=== PATIENT | female | born 1975 | race Caucasian/White ===

== ENCOUNTER 2019-01-20 14:56 | Outpatient (CLI) | payer MEDICAID, SELFPAY ==
[2019-01-20 15:12] LABS: Abs Immature Grans 0.01 k/cumm (0.0-0.09); Absolute Basophil Count 0.03 k/cumm (0.0-0.2); Absolute Eosinophil Count 0.19 k/cumm (0.0-0.7); Absolute Lymphocyte Count 1.71 k/cumm (1.2-3.4); Absolute Monocyte Count 0.41 k/cumm (0.11-0.7); Basophils % 0.4; Eosinophils % 2.8; HCT 38.9 % (36.0-46.0); HGB 12.9 g/dL (12.0-15.5); Immature Grans % 0.1; Mean Corp. HGB Concentration 33.2 g/dL (32.0-36.0); Mean Corpuscular Hemoglobin 26.9 pg (27.0-33.0); Mean Platelet Volume 10.5 fL (8.0-11.0); Neutrophils % 65.7; Platelet Count 267 x1000/uL (130-400); RBC Distribution Width 13.7 % (11.7-14.6); White Blood Cell Count 6.85 k/cumm (4.4-10.8)
[2019-01-20 16:34] LABS: ALT 19 U/L (12-78); AST 14 U/L (15-37); Albumin 3.8 g/dL (3.4-5.0); Alkaline Phosphatase 154 U/L (46-116); BUN 21 mg/dL (7-18); Bilirubin, Total 0.8 mg/dL (0.2-1.0); CREATININE 0.83 mg/dL (0.55-1.02); Calcium 9.3 mg/dL (8.5-10.1); Chloride 104 mmol/L (98-107); Glucose 104 mg/dL (70-100); Potassium 4.2 mmol/L (3.5-5.1); Sodium 141 mmol/L (136-145)
[2019-01-23 10:40] LABS: CA 125 5 U/mL (0-30)
== END 2019-01-20 15:16 ==
PROVIDERS: PCP Family Medicine; Visit Provider Obstetrics & Gynecology
DX: D48.9 Neoplasm of uncertain behavior, unspecified (principal)
CPT/HCPCS: 36415; 80053; 86304; 85025

== ENCOUNTER 2019-07-21 16:07 | Outpatient (CLI) | payer MEDICAID, SELFPAY ==
[2019-07-21 17:59] LABS: HCT 38.3 % (36.0-46.0); HGB 12.4 g/dL (12.0-15.5); Mean Corp. HGB Concentration 32.4 g/dL (32.0-36.0); Mean Corpuscular Hemoglobin 26.3 pg (27.0-33.0); Mean Corpuscular Volume 81.3 fL (80-95); Mean Platelet Volume 11.1 fL (8.0-11.0); Platelet Count 311 x1000/uL (130-400); RBC 4.71 m/cumm (4.00-5.20); RBC Distribution Width 14.6 % (11.7-14.6); White Blood Cell Count 7.17 k/cumm (4.4-10.8)
[2019-07-21 18:05] LABS: ALT 14 U/L (14-59); AST 12 U/L (15-37); Albumin 3.6 g/dL (3.4-5.0); Alkaline Phosphatase 141 U/L (46-116); Anion Gap 11.9 mmol/L (3-11); BUN 15 mg/dL (7-18); Bilirubin, Total 0.8 mg/dL (0.2-1.0); CO2 26.1 mmol/L (21.0-32.0); CREATININE 0.82 mg/dL (0.55-1.02); Chloride 107 mmol/L (98-107); Glucose 94 mg/dL (70-100); Potassium 4.2 mmol/L (3.5-5.1); Sodium 145 mmol/L (136-145); Total Protein 7.7 g/dL (6.4-8.2)
[2019-07-24 09:47] LABS: CA 125 4 U/mL (0-30)
== END 2019-07-21 16:27 ==
PROVIDERS: PCP Family Medicine; Visit Provider Obstetrics & Gynecology
DX: D48.9 Neoplasm of uncertain behavior, unspecified (principal)
CPT/HCPCS: 36415; 80053; 85027; 86304

== ENCOUNTER 2021-07-18 16:48 | Outpatient (REF) | payer MEDICAID, SELFPAY ==
--- NOTE | 2021-07-18 16:00 | PAPFT_PTH ---
PATIENT: Sara Morton LOC: [facility] U#:[id number] AGE/SX: 45/F ROOM: RE07/18/[address]: Rebeca Wolf DO : 1975 BED: DIS: 07/18/2021 SPEC #: [id number] RECD: 07/21/21 11:16 STATUS: JAKE REQ #: [id number] MARGIE: 07/18/21 16:[address]: Rebeca Wolf DEPT: [facility] Cytology RECD BY: Isa Frost ENTERED: 07/21/21 11:17 SP TYPE: PAPFT OTHR DR: Boogie Torres Tissues: 1 - CX/ENDOCX FOR PAP SMEARS Procedures: PAP THIN PREP/[facility] Screening HPV DNA PROBE Comments: [id number]
== END 2021-07-18 16:49 | disposition home or self-care (01) ==
LOC: LBN 16:48
PROVIDERS: PCP Family Medicine; Visit Provider Obstetrics & Gynecology
DX: Z12.4 Encounter for screening for malignant neoplasm of cervix (principal); Z11.51 Encounter for screening for human papillomavirus (HPV)
CPT/HCPCS: 88142; 87624

== ENCOUNTER 2022-01-23 01:47 | Outpatient (CLI) | payer MEDICAID, SELFPAY ==
[2022-01-26 10:44] LABS: CA 125 3 U/mL (<30)
== END 2022-01-23 01:48 | disposition home or self-care (01) ==
LOC: LBO 01:47
PROVIDERS: PCP Family Medicine; Visit Provider Obstetrics & Gynecology
DX: Z85.43 Personal history of malignant neoplasm of ovary
CPT/HCPCS: 36415; 86304

== ENCOUNTER 2022-07-17 01:47 | Outpatient (CLI) | payer MEDICAID, SELFPAY ==
--- OUTSIDE RECORDS SUMMARY | 2022-07-17 01:53 | XMS_ITS | Encounter Summary ---
:1975 Author Organization [facility] [place] [address] Care Team Providers Name Role Phone Boogie Torres MD Primary Care Provider Reason for Visit Auth/Cert Specialty Diagnoses / Procedures Referred By Contact Refer red To Contact Diagnoses Ovarian mass OVARIAN MASS UNKNOWN Procedures PRO EXPLORATORY OF ABDOMEN PRO REMOVAL OF OVARY/TUBE(S) @EXPLORATORY LAPAROTOMY, WITH/WITHOUT BIOPSY(S) ([facility] 12.54) @SALPINGO-OOPHORECTOMY, UNILATERAL OR AXEL ([facility] 12.16) Referral ID Status Reason Start Date Expiration Date Visits Requ ested Visits Authorized [id number] 1 1 Encounter Details Date Type Department Care Team Description 03/30/2018 - Hospital Encounter 1 [facility] Gilmangibran Whyte-Blue n, Tachycardia 04/03/2018 [facility] MD Nohemy [facility] [address] [place] GYNECOLOGIC [id number] ONCOLOGY [phone] [place], [place] [address] Social History Tobacco Use Types Packs/Day Years Used Date Never Smoker Smokeless Tobacco: Never Used Alcohol Use Standard Drinks/Week Comments No 0 (1 standard drink = 0.6 oz pure alcoho l) Sex Assigned at Date Recorded Not on file documented as of this encounter Last Filed Vital Signs Vital Sign Reading Time Taken Comments Blood Pressure 100/62 04/03/2018 7:39 AM EDT Pulse 100 04/03/2018 7:39 AM EDT Temperature 36.6 ??C (97.9 ??F) 04/03/2018 7:39 AM EDT Respiratory Rate 21 04/03/2018 7:39 AM EDT Oxygen Saturation 97% 04/03/2018 7:39 AM EDT Inhaled Oxygen Concentration - - Weight 79.8 kg (175 lb 14.8 oz) 04/03/2018 4:45 AM EDT Height 159 cm (5' 2.6) 03/30/2018 3:33 PM EDT Body Mass Index 31.57 03/30/2018 3:33 PM EDT documented in this encounter Discharge Summaries Akila Gregorio MD - 04/03/2018 12:29 PM EDT Images from the original note were not included. Discharge Summary Patient Name: Sara Morton Patient Age: 42 y.o. Language: Tristanian Race: White Ethnicity: Not nor Admit date: 03/30/2018 Discharge date and time: 04/03/2018 Attending Physician: Nohemy Van MD Discharge Physician: Stella Prather MD Follow-up Recommendations for Providers: -Follow-up with Dr. Van on 04/22/18 at 9:00AM Inpatient Provider Contact Information: Dr. Nohemy Van, [facility] Gynecologic Oncology, Discharge Diagnoses (Hospital Problems) and Secondary Diagnoses (Chronic Problems): Active Hospital Problems Diagnosis ??? Ovarian mass Resolved Hospital Problems Diagnosis Date Resolved No resolved problems to display. There are no active non-hospital problems to display for this patient. Operations/Major Procedures: 03/30/2018 Exploratory laparotomy, bilateral salpingo-oophorectomy, omental biopsy History of Presentation: Angelita Morton is a 42 y.o. female, who presented to PCP for regular follow-up in December 2017.She first started noticing her enlarging abdomen ~1.5 years ago. She did not think about pursuing treatment because she was not having symptoms including abdominal pain, change in bowel or bladder function, n/v, change in menses, or LE edema. She presented to her PCP due to increasing abdominal girth.She had a CT scan and U/S (no images available) that showed a 30cm septated mass with solid component that appears to be arising from the left adnexa. No adenopathy or evidence of metastasis. She reports some early satiety and weight gain recently. She does not desire future childbearing. She otherwise has not sought medical care since her last child. ?? She has regular menses ~q 30 days (LMP 03/04/2018). CA-125 18: 45 She presents for definitive diagnosis and management. Hospital Course: Sara Morton was admitted through Same Day Surgery and underwent the above procedures without complication. EBL was 100mL. Findings were notable for: 1. > 30 cm right adnexal mass that extended to the level of the xiphoid process 2. Frozen section: ovarian mucinous cystic neoplasm, at least borderline tumor (2 transportation services representative sections). No evidence of malignancy in omental biopsy Postoperatively the patient was taken to PACU and on POD #0 was transferred to the floor. Post operative course was uncomplicated. She was able to tolerate a regular diet and ambulate without difficulty. The patient met SIRS criteria due to fevers and tachycardia. Blood and urine cultures were negative to date. She received Zosyn and Vancomycin. Her fevers were likely of noninfectious origin, unclear etiology. She had a CT PE Protocol which did not show any evidence of pulmonary embolus and there was no concerning abscess on CT Abdomen/Pelvis. The patient's tachycardia self-resolved and she remained afebrile off of antibiotics. Tejeda catheter was removed on POD#1 and pt was able to voidwithout issue. Her pain was well-controlled on oral medications by the time of discharge. She was discharged home on POD #4 in stable condition with follow-up in place. We discussed discharge instructions and plan of care, all questions answered. Due to her post-operative pain the patient was given a prescription for oxycodone to take only for breakthrough pain not responsive to acetaminophen and ibuprofen. She was counseled regarding the dangers of these medications including sedation which would impair her ability to drive safely. The potential for addiction with continued use of narcotic was discussed and the need to stop use as soon as possible. It was recommended that she promptly destroy unused medication or take them back to drop box locations. The opioid risk assessment was done, opioid informed consent reviewed and signed by patient, PDMP query completed. Discharge instructions discussing the risk of opioids are included in her discharge instructions which are printed and given to the patient at discharge. Vital signs at Discharge: BP: 100/62, Heart Rate: 100, Temp: 36.6 ??C (97.9 ??F), Resp: 21, BMI (Calculated): 28.04 Height: 159 cm (5' 2.6) (03/30/18 1533) Weight: 79.8 kg (175 lb 14.8 oz) (04/03/18 0445) Functional and Cognitive status: Intact at baseline Important Studies and Lab Data: Labs: Recent Labs 04/02/18 0316 04/01/18 1112 03/31/18 2057 WBC 8.6 5.7 7.8 HGB 10.1* 11.4* 11.1* HCT 32.3* 35.1* 34.6* PLATELET 263 267 239 Recent Labs 04/01/18 0818 03/31/18 1738 03/31/18 0337 NA 138 137 138 K 3.7 3.3* 4.1 CL 104 102 105 CO2 20* 23 21* BUN 9 11 10 CREATININE 0.85 0.77 0.75 MAGNESIUM 0.71 0.62* 0.71 Studies: -Frozen section: Omental biopsy: No evidence of malignancy (deeper levels obtained). Right adnexa: Ovarian mucinous cystic neoplasm, at least borderline tumor (2 transportation services representative sections). Pending Studies and Lab Data: Final pathology pending Imaging CT Abdomen/Pelvis 1. Free intraperitoneal fluid and air. Although this may be postsurgical, cannot exclude bowel perforation. 2. Multiple distended loops of small bowel seen in upper abdomen; cannot exclude partial small bowelobstruction. CT PE Protocol No evidence of acute pulmonary arterial embolism. Chest X-ray Large amount of intra-abdominal free air, correlate with recent surgical history Discharge Conditions/Prognosis: good Discharge to: Home Updated Allergies/ADRs: Allergies Allergen Reactions ??? Bee Sting [Hymenoptera Allergenic Extract] Full-body edema, reaction as a child Immunizations Given this Hospitalization: There is no immunization history on file for this patient. Discharge Medications: Your Medications New Medications Dose Details acetaminophen 325 mg Tab Commonly known as: TYLENOL Take 2 tablets by mouth every 6 hours. 650 mg Quantity: 30 tablet Refills: 0 ibuprofen 600 mg Tab Commonly known as: ADVIL;MOTRIN Take 1 tablet by mouth every 6 hours as needed for Pain. 600 mg Quantity: 30 tablet Refills: 0 oxyCODONE 5 mg Tab Commonly known as: ROXICODONE Take 1 tablet by mouth every 4 hours as needed for Pain (Severe pain (7-10)). 5 mg Quantity: 15 tablet Refills: 0 senna-docusate 8.6-50 mg Tab Commonly known as: PERICOLACE Take 2 tablets by mouth 2 times daily. 2 tablet Quantity: 60 tablet Refills: 0 STOPPED Medications NECON (28) 0.5/0.75/1 mg- 35 mcg Tab Generic drug: norethindrone-ethinyl estradiol Smoking Status at Discharge: History Smoking Status ??? Never Smoker Smokeless Tobacco ??? Never Used Instructions Given to Patient at Discharge: Patient Instructions PATIENT DISCHARGE INSTRUCTIONS Gynecologic Oncology phone number: [phone] Call your doctor if you develop: --A fever over 101 degrees --Severe pain --Heavy vaginal bleeding --Increasing pain, redness, or discharge at your incision --It is normal to have light spotting from the vagina for up to 4 weeks following hysterectomy -Follow-up with Dr. Van on 04/22/18 at 9:00AM Activity level: No heavy lifting, pushing or pulling for 6 weeks. No sexual intercourse, no tampons,nothing in the vagina for 8 weeks. Nothing in your rectum for 8 weeks. Diet: You may resume your regular diet. Be sure you drink plenty of fluids. Please use fede-colace 1-2 tablets twice daily for the entire time that you are taking narcotic pain medication to keep your bowel movements soft and regular. If you are constipated or have not had a bowel movement in 3 days, please use milk of magnesia (or Miralax) as directed over the counter. Driving: Do not drive until you are off of all narcotic medications and you are not feeling pain; usually about 2 weeks. Shower/Bath: Showering is fine. Short baths are okay but you should avoid having any abdominal incision submerged for more than 10-15 minutes for the next 2 weeks. Wound Care: Your incision is closed with dissolvable stiches and steri-strips (small pieces of tape). The steri-strips will start to peel off in 5-7 days, do not pick or rub them prior to this. The stitches do not need to be removed-- they will dissolve on their own. Pain Control: For your post-operative pain please use ibuprofen, acetaminophen, heating pad, and narcotic pain medication (oxycodone) for your pain management. Your goal is to be able to take several short walks every day (increase the duration each day) and to be able to sleep at night. If you are unable to do these things using the ibuprofen and acetaminophen and heating pad then you will need to use the narcotic pain medication (oxycodone) for breakthrough pain. You should be able to use less oxycodone every couple days and require no breakthrough narcotic pain medication in about 3-4 weeks. 1. Please use ibuprofen (Advil/Motrin) 600mg every 6 hours around the clock (with food) for the next5-7 days. After that, use as needed. 2. Please use acetaminophen (Tylenol) 650mg every 6 hours as needed. Do not exceed 3000mg of acetaminophen from any source in 24 hours. 3. Please use oxycodone every 4-6 hours as needed for pain that ???breaks through?? the ibuprofen and acetaminophen. Please take your medication exactly as prescribed. Read all instructions that come with your medication. ?? Using narcotic pain medication (such as oxycodone, hydromorphone (Dilaudid), morphine, fentanyl, or tramadol) may cause addiction. While addiction is more common in people with a personal or family history of addiction, it can occur in anyone. ?? Taking more than the prescribed amount of medication or using with alcohol or other drugs can cause you to stop breathing resulting in coma, brain damage, or . ?? Opioids (oxycodone, hydromorphone/Dilaudid, morphine, fentanyl, tramadol) can slow reaction time,cause drowsiness, or cloud judgement. It is unsafe for you to drive or operate heavy machinery whiletaking this medication. ?? Opioids (oxycodone, hydromorphone/Dilaudid, morphine, fentanyl, tramadol) are at risk of being diverted by anyone with access to your home. Opioids should be stored in a safe and secure place, such as a locked cabinet or safe. Unused opioids (oxycodone, hydromorphone/Dilaudid, morphine, fentanyl, tramadol) should be disposed of according to the label or patient information. If there are no specific instructions, medications may be returned to a take-back location or mixed with a small amount of water and an undesirable waste substance such as coffee grounds or cat litter. General Instructions None Future Appointments and Orders Future Appointments Provider Department Dept Phone 04/22/2018 9:00 AM Nohemy Van MD Gynecology Oncology at [place] [phone] Discharge References/Attachments None Provider Contact Information: Boogie Torres MD [phone] documented in this encounter Discharge Instructions Patient InstructionsAkila Gregorio MD - 03/30/2018 10:02 AM EDT Images from the original note were not included. PATIENT DISCHARGE INSTRUCTIONS Gynecologic Oncology phone number: [phone] Call your doctor if you develop: --A fever over 101 degrees --Severe pain --Heavy vaginal bleeding --Increasing pain, redness, or discharge at your incision --It is normal to have light spotting from the vagina for up to 4 weeks following hysterectomy -Follow-up with Dr. Van on 04/22/18 at 9:00AM Activity level: No heavy lifting, pushing or pulling for 6 weeks. No sexual intercourse, no tampons,nothing in the vagina for 8 weeks. Nothing in your rectum for 8 weeks. Diet: You may resume your regular diet. Be sure you drink plenty of fluids. Please use fede-colace 1-2 tablets twice daily for the entire time that you are taking narcotic pain medication to keep your bowel movements soft and regular. If you are constipated or have not had a bowel movement in 3 days, please use milk of magnesia (or Miralax) as directed over the counter. Driving: Do not drive until you are off of all narcotic medications and you are not feeling pain; usually about 2 weeks. Shower/Bath: Showering is fine. Short baths are okay but you should avoid having any abdominal incision submerged for more than 10-15 minutes for the next 2 weeks. Wound Care: Your incision is closed with dissolvable stiches and steri-strips (small pieces of tape). The steri-strips will start to peel off in 5-7 days, do not pick or rub them prior to this. The stitches do not need to be removed-- they will dissolve on their own. Pain Control: For your post-operative pain please use ibuprofen, acetaminophen, heating pad, and narcotic pain medication (oxycodone) for your pain management. Your goal is to be able to take several short walks every day (increase the duration each day) and to be able to sleep at night. If you are unable to do these things using the ibuprofen and acetaminophen and heating pad then you will need to use the narcotic pain medication (oxycodone) for breakthrough pain. You should be able to use less oxycodone every couple days and require no breakthrough narcotic pain medication in about 3-4 weeks. 1. Please use ibuprofen (Advil/Motrin) 600mg every 6 hours around the clock (with food) for the next5-7 days. After that, use as needed. 2. Please use acetaminophen (Tylenol) 650mg every 6 hours as needed. Do not exceed 3000mg of acetaminophen from any source in 24 hours. 3. Please use oxycodone every 4-6 hours as needed for pain that ???breaks through?? the ibuprofen and acetaminophen. Please take your medication exactly as prescribed. Read all instructions that come with your medication. ?? Using narcotic pain medication (such as oxycodone, hydromorphone (Dilaudid), morphine, fentanyl, or tramadol) may cause addiction. While addiction is more common in people with a personal or family history of addiction, it can occur in anyone. ?? Taking more than the prescribed amount of medication or using with alcohol or other drugs can cause you to stop breathing resulting in coma, brain damage, or . ?? Opioids (oxycodone, hydromorphone/Dilaudid, morphine, fentanyl, tramadol) can slow reaction time,cause drowsiness, or cloud judgement. It is unsafe for you to drive or operate heavy machinery whiletaking this medication. ?? Opioids (oxycodone, hydromorphone/Dilaudid, morphine, fentanyl, tramadol) are at risk of being diverted by anyone with access to your home. Opioids should be stored in a safe and secure place, such as a locked cabinet or safe. Unused opioids (oxycodone, hydromorphone/Dilaudid, morphine, fentanyl, tramadol) should be disposed of according to the label or patient information. If there are no specific instructions, medications may be returned to a take-back location or mixed with a small amount of water and an undesirable waste substance such as coffee grounds or cat litter. documented in this encounter Medications at Time of Discharge Medication Sig Dispensed Refills Start Date End Date acetaminophen (TYLENOL) Take 2 tablets by 30 tablet 0 04/0305/18/2018 325 mg Tablet mouth every 6 hours. ibuprofen (ADVIL;MOTRIN) Take 1 tablet by 30 tablet 0 04/0305/18/2018 600 mg Tablet mouth every 6 hours as needed for Pain. oxyCODONE (ROXICODONE) 5 Take 1 tablet by 15 tablet 0 04/0305/18/2018 mg Tablet mouth every 4 hours as needed for Pain (Severe pain (7-10)). senna-docusate Take 2 tablets by 60 tablet 0 04/03/2018 (PERICOLACE) 8.6-50 mg mouth 2 times Tablet daily. documented as of this encounter Progress Notes Akila Gregorio MD - 04/03/2018 6:21 AM EDT Images from the original note were not included. Gynecology Post operative Progress Note ID: Sara Morton is an 42 y.o. woman who is post operative day #4 s/p ex- lap, bilateral salpingo-oohprectomy with removal of > 30 cm adnexal mass. Interval Events: -Vancomycin and Zosyn discontinued Subjective: Sara Morton reports that her pain is well controlled, PCEA was removed yesterday. She has tolerated a regular diet without nausea or vomiting. She is voiding spontaneously without issues. She has ambulated without issues. Passing flatus and small liquid stool output, has not yet had formed bowel movement. She denies chest pain, shortness of breath, fever, chills, and leg pain. Physical Exam: Last value Range last 24 hrs Temperature Temp: 36.4 ??C (97.5 ??F) Temp: [36.4 ??C (97.5 ??F)-36.8 ??C (98.2 ??F)] Heart Rate Heart Rate: (!) 107 (PT just ambulating; RN notified) Heart Rate: [66-110] Blood Pressure BP: 128/60 BP: (96-128)/(58-64) Respiratory Rate Resp: 18 Resp: [16-18] SpO2 SpO2: 97 % SpO2: [90 %-99 %] Art BP BP (Arterial Line): -- UOP has been approximately 60 ml/hr overnight Net +7.9 L Physical Exam Gen: Alert, NAD Cardio: tachycardic, regular rhythm, no MRG Pulm: CTAB, no wheezes or crackles. Abd: soft, normoactive bowel sounds, mild distended, non-tender to palpation. No rebound or guarding Incision: vertical midline incision well approximated with sterri strips. C/D/I Ext: warm, well-perfused, no edema bilaterally, ICDs in place Laboratory (Last 24 Hours): Recent Labs 04/02/18 0316 04/01/18 1112 03/31/18 2057 WBC 8.6 5.7 7.8 HGB 10.1* 11.4* 11.1* HCT 32.3* 35.1* 34.6* PLATELET 263 267 239 Recent Labs 04/01/18 0818 03/31/18 1738 03/31/18 0337 NA 138 137 138 K 3.7 3.3* 4.1 CL 104 102 105 CO2 20* 23 21* BUN 9 11 10 CREATININE 0.85 0.77 0.75 MAGNESIUM 0.71 0.62* 0.71 Assessment and Plan: Sara Morton is an 42 y.o. woman post operative day #4 s/p above procedure for adnexal mass. Patient met SIRS criteria during this admission with noninfectious origin, unclear etiology. PE ruled out, blood and urine cultures negative to date, no concerning abscess on CT. Patient has been meeting appropriate post-operative milestones, anticipate discharge today. Pain Control: adequate pain control with ibuprofen, tylenol, oxycodone prn. Cardiac/Heme: currently normotensive. Remains tachycardic despite fluid resuscitation, antibiotics, neg CT PE protocol, has been asymptomatic Pulmonary: Adequate o2 sats on room air -- Oxygen has needed to maintain saturation >92%. -- encourage incentive spirometry. Gastrointestinal: -- regular diet ordered -- zofran prn nausea. Genitourinary: adequate UOP -- strict I/Os Fluid/ Electrolytes: HLIV ID: Last fever 03/31 at 2035 hrs to 39.1 -- blood and urine cultures pending, no growth to date -- vancomycin and zosyn discontinued on POD#3 Prophylaxis: --Lovenox 40mg sq daily. --Incentive spirometry. --ICDs. Disposition: --Anticipate discharge today AKILA GREGORIO MD PGY4 04/03/2018 I have seen and examined the patient and reviewed and edited the resident's above history and I agree with the details as written. The assessment and plan were formulated in discussion with me and I agree with them as documented. Stella Prather MD Mark Kimball MD - 04/02/2018 8:55 AM EDT Acute Pain Service - Epidural Daily Management Physician: Dr. Kimball Time of Service: 8:55 AM VITAL SIGNS: BP 105/60 (BP Location (NBP): Right arm, Patient Position: Lying) Pulse 98 Temp 36.8 ??C (98.2 ??F) (Oral) Resp 16 Ht 159 cm (5' 2.6) Wt 79.7 kg (175 lb 11.3 oz) LMP 03/30/2018 Comment: thinmks she will start menses today SpO2 98% BMI 31.53 kg/m2 Epidural day: 4 days s/p placement POD: 3 days s/p Operative Procedures: Procedure(s) with comments: @EXPLORATORY LAPAROTOMY, WITH/WITHOUT BIOPSY(S) ([facility]) - RESEARCH BIOBANK @SALPINGO-OOPHORECTOMY, UNILATERAL OR AXEL ([facility]) Pertinent Medications: Continuous Infusions Bupivacaine 1/8 % (1.25 mg/mL) plus Fentanyl (2 micrograms/mL) infusing at 3 mls/hour plus PCEA at 3ml every 20 minutes. (No PCEA attempts) Lovenox 40mg SubQ HS Toradol 15mg IVP Q6H followed by Motrin 600mg PO Q6H Tylenol 650mg PO Q6H Oxycodone 5-10mg PO Q4H PRN (none used in 24 hours) Assessment: Numerical Rating Scale (NRS) 0/10 Pain now is none ROS: GI/Bowels Tolerating a regular diet. Nausea Yes: Episodic after potassium administration Pruritis No Drowsiness No Patient is awake and alert. Deep breathing and coughing well. Moves legs without difficulty. Epidural insertion site clean and without signs of infection, however Tegaderm rolled up, exposing insertion site Plan: Epidural removed, Tip intact Please call with any questions or concerns. Mark Kimball MD 04/02/2018 Pager # [phone] Stella Prather MD - 04/02/2018 7:06 AM EDT Images from the original note were not included. Gynecology Post operative Progress Note ID: Sara Morton is an 42 y.o. woman who is post operative day #3 s/p ex- lap, bilateral salpingo-oohprectomy with removal of > 30 cm adnexal mass. Interval Events: -CT PE Protocol: No evidence of acute pulmonary arterial embolism. Subjective: Sara Morton reports that her pain is well controlled with PCEA. She did not have much of an appetite yesterday but states she had small amounts of food without nausea or vomiting. She is voiding spontaneously without issues. She has ambulated without issues. Small amounts of flatus. She denies chest pain, shortness of breath, fever, chills, and leg pain. Physical Exam: Last value Range last 24 hrs Temperature Temp: 36.7 ??C (98.1 ??F) Temp: [36.3 ??C (97.3 ??F)-37 ??C (98.6 ??F)] Heart Rate Heart Rate: (!) 105 Heart Rate: [105-120] Blood Pressure BP: 90/50 BP: (90-117)/(50-58) Respiratory Rate Resp: 17 Resp: [16-22] SpO2 SpO2: 97 % SpO2: [95 %-98 %] Art BP BP (Arterial Line): -- UOP has been approximately 30 ml/hr overnight Physical Exam Gen: Alert, NAD Cardio: tachycardic, regular rhythm, no MRG Pulm: CTAB, no wheezes or crackles. Abd: soft, hypoactive bowel sounds, mild distended, non-tender to palpation. No rebound or guarding Incision: vertical midline incision well approximated with sterri strips. C/D/I Ext: warm, well-perfused, no edema bilaterally, ICDs in place Laboratory (Last 24 Hours): Recent Labs 04/02/18 0316 04/01/18 1112 03/31/18 2057 WBC 8.6 5.7 7.8 HGB 10.1* 11.4* 11.1* HCT 32.3* 35.1* 34.6* PLATELET 263 267 239 Recent Labs 04/01/18 0818 03/31/18 1738 03/31/18 0337 NA 138 137 138 K 3.7 3.3* 4.1 CL 104 102 105 CO2 20* 23 21* BUN 9 11 10 CREATININE 0.85 0.77 0.75 MAGNESIUM 0.71 0.62* 0.71 Assessment and Plan: Sara Morton is an 42 y.o. woman post operative day #3 s/p above procedure for adnexal mass. Remains tachycardic despite fluid boluses and initiation of antibiotics. Pt has sustained tachycardia, no evidence of pulmonary embolus on imaging. Patient otherwise recovering well inthe post- operative period. Pain Control: adequate pain control with PCEA, ibuprofen, tylenol, oxycodone prn. -- PCEA management per APS, consider decreasing epidural rate today given adequate pain control -- transition to PO pain meds when able to take adequate PO Cardiac/Heme: currently normotensive. Remains tachycardic despite fluid resuscitation, antibiotics, neg CT PE protocol Pulmonary: Adequate o2 sats on room air -- Oxygen has needed to maintain saturation >92%. -- encourage incentive spirometry. Gastrointestinal: -- regular diet ordered -- zofran prn nausea. Genitourinary: adequate UOP -- strict I/Os Fluid/ Electrolytes: -- continue LR at 100cc/hour, consider dc IVF if pt tolerates more po intake today ID: Last fever 03/31 at 2035 hrs to 39.1 -- blood and urine cultures pending -- Continue vancomycin and zosyn until at least 48 hours afebrile Prophylaxis: --Lovenox 40mg sq daily. --Incentive spirometry. --ICDs. Disposition: --Continues to require inpatient hospitalization. AKILA GREGORIO MD PGY4 04/02/2018 I have seen and examined the patient and reviewed and edited the resident's above history and I agree with the details as written. The assessment and plan were formulated in discussion with me and I agree with them as documented. Tachycardia improved. Will be afebrile x 48 hours this evening. If no source for one time fever, will d/c all abx and monitor. Possible d/c tomorrow if remains afebrile and tachycardia continues to improve. Given her outpt office heart rate, this may be her baseline and may represent overall deconditioning. Stella Prather MD Nikia Saavedra, RN - 04/01/2018 12:09 PM EDT Office of Care Management Initial Assessment Nikia Saavedra, RN reviewed record and discussed patient with Care Team. Source of Information: Patient and patient's boyfriend-Huff Introduced self/reviewed role; services accepted. Reason for Hospitalization: Reason for Admission as Stated by Patient: I had to have a mass removed History reviewed. No pertinent past medical history. Hospitalizations Within the Past 30 Days: None Anticipated Length Of Stay (If known): Expected Length of Hospitalization: 4 days Current Decision-Making Capacity: Alert and oriented x4 Advance Care Planning: No AD. Explained If AD's have not been completed Partner would be surrogate decision maker per [place] surrogate decision making law. Any patient receiving care at [facility] [place] must abide by [place] law. The hierarchy for surrogate decision making is: (a) Patient???s spouse, or civil union partner or common law spouse unless there is a divorce proceeding, separation agreement, or restraining order limiting that person???s relationship with the patient. (b) Any adult son or daughter of the patient. (c) Either parent of the patient. (d) Any adult brother or sister of the patient. (e) Any adult grandchild of the patient. (f) Any grandparent of the patient. (g) Any adult aunt, uncle, niece, or nephew of the patient. (h) A close friend of the patient. (i) The agent with financial power of business attorney or a conservator appointed in accordance with RSA 464-A. (j) The guardian of the patient???s estate. Current Coping/Education/Information Needs: None Current Functional Ability: SBA Functional Status Prior to Admission: Independent Home Environment: Mobile home with 7 steps to enter. Social & Family Supports/Community Resources: Son and boyfriend. Behavioral Health History: No anxiety or depression. Substance Use/Abuse: No alcohol, tobacco, or illicit drug use. Other Pertinent/Service Specific Information: None Health/Prescription Coverage: Primary Insurance: MEDICAID [place] Secondary Insurance: N/A Prescription Coverage: Yes Preferred Pharmacy: No preference Other: No difficulty paying for prescription medications. Primary Care Provider: Boogie Torres MD [phone] Patient/Caregiver Goals of Treatment: To get better and go home. Potential Needs for Transition of Care: Rehab/SNF: to be determined Home Health: to be determined DME: none Dialysis: not applicable Community Resources: none Transportation: Huff-Boyfriend will provide. Other: none Anticipated Barriers to Discharge/Special Considerations: No anticipated barriers to discharge. Assessment: 42 y.o.??woman with a large pelvic mass (30 x 23cm) concerning for ovarian cancer vs benign etiology. Will plan to proceed with planned procedure: open LSO with possible ovarian cancer staging based on frozen section. Plan: Pending clinical course. A member of the Care Management team will continue to monitor progress, follow for continuity of care and assist with transition of care planning. Nikia Saavedra RN Pager: [phone] Boogie Monson MD - 04/01/2018 9:30 AM EDT Acute Pain Service - Epidural Daily Management Physician: Dr. Monson Time of Service: 11:54 AMAM VITAL SIGNS: BP 116/53 (BP Location (NBP): Right leg, Patient Position: Lying) Pulse (!) 120 Temp 37 ??C (98.6 ??F) Resp 20 Ht 159 cm (5' 2.6) Wt 77.6 kg (171 lb 1.2 oz) LMP 03/30/2018 Comment: thinmksshe will start menses today SpO2 95% BMI 30.7 kg/m2 Epidural day: 3 days s/p placement POD: 2 days s/p Operative Procedures: Procedure(s) with comments: @EXPLORATORY LAPAROTOMY, WITH/WITHOUT BIOPSY(S) ([facility] 12.54) - RESEARCH BIOBANK @SALPINGO-OOPHORECTOMY, UNILATERAL OR AXEL ([facility] 12.16) Pertinent Medications: Continuous Infusions Bupivacaine 1/8 % (1.25 mg/mL) plus Fentanyl (2 micrograms/mL) infusing at 6 mls/hour plus PCEA at 3ml every 20 minutes. (No PCEA attempts) Lovenox 40mg SubQ HS Toradol 15mg IVP Q6H followed by Motrin 600mg PO Q6H Tylenol 650mg PO Q6H Oxycodone 5-10mg PO Q4H PRN (none used in 24 hours) Assessment: Numerical Rating Scale (NRS) 0/10 Pain now is none ROS: GI/Bowels Tolerating a regular diet. Nausea Yes: Episodic after potassium administration Pruritis No Drowsiness No Patient is awake and alert. Deep breathing and coughing well. Moves legs without difficulty. Epidural insertion site clean and without signs of infection. Plan: Epidural decreased to 3mL/hr with a PCEA of 3mL every 20 minutes. Will plan to remove tomorrow pending patient tolerance of oral analgesics. Plan discussed with patient/RN/team. Please call with any questions or concerns. In the presence of Dr. Monson, I am taking down these notes. JUAN LIN RN 04/01/2018 Pager # [phone] I performed the above scribed service and agree with the accuracy of the note. Stella Ann MD - 04/01/2018 6:22 AM EDT Images from the original note were not included. Gynecology Post operative Progress Note ID: Sara Morton is an 42 y.o. woman who is post operative day #2 s/p ex- lap, bilateral salpingo-oohprectomy with removal of > 30 cm adnexal mass. Interval Events: - Febrile to 39.1, HR 110-140s. - Lab obtained: blood and urine cultures - chest x-ray showed no pulmonary pathology - received fluid bolus per sepsis protocol - started on vancomycin and zosyn Subjective: Sara Morton reports that her pain is well controlled with PCEA, has not needed to push her button. She has tolerated a regular diet without nausea or vomiting. Her tejeda catheter remains in place.She has ambulated without issues. Small amounts of flatus. Reports sweats intermittently throughout the evening. She denies chest pain, shortness of breath, fever, chills, and leg pain. Physical Exam: Last value Range last 24 hrs Temperature Temp: 37 ??C (98.6 ??F) Temp: [36.8 ??C (98.2 ??F)-39.1 ??C (102.4 ??F)] Heart Rate Heart Rate: (!) 111 Heart Rate: [83-139] Blood Pressure BP: 94/64 BP: (92-120)/(50-68) Respiratory Rate Resp: 24 Resp: [16-28] SpO2 SpO2: 97 % SpO2: [96 %-98 %] Art BP BP (Arterial Line): -- UOP has been approximately 10-15 ml/hr overnight Physical Exam Gen: Alert, NAD Cardio: tachycardic, regular rhythm, no MRG Pulm: CTAB, no wheezes or crackles. Abd: soft, hypoactive bowel sounds, mild distended, non-tender to palpation. No rebound or guarding Incision: vertical midline incision well approximated with sterri strips. C/D/I Ext: warm, well-perfused, no edema bilaterally, ICDs in place Laboratory (Last 24 Hours): Recent Labs 03/31/187 03/31/18 1738 03/31/18 0337 WBC 7.8 5.5 10.1* HGB 11.1* 11.1* 10.3* HCT 34.6* 34.3* 31.8* PLATELET 239 209 258 Recent Labs 03/31/18 1738 03/31/18 0337 NA 137 138 K 3.3* 4.1 CL 102 105 CO2 23 21* BUN 11 10 CREATININE 0.77 0.75 MAGNESIUM 0.62* 0.71 Assessment and Plan: Sara Morton is an 42 y.o. woman post operative day #2 s/p above procedure for adnexal mass. Remains tachycardic despite fluid boluses and initiation of antibiotics. Pt denies any shortness of breath and has normal O2 sats, consider CT PE protocol given sustained tachycardia. Pain Control: adequate pain control with PCEA, Toradol --> ibuprofen, tylenol, oxycodone prn. -- PCEA management per APS, consider decreasing epidural rate today given adequate pain control -- transition to PO pain meds when able to take adequate PO Cardiac/Heme: currently normotensive. Remains tachycardic despite fluid bolus and initiation of antibiotics as part of sepsis protocol. Consider CT PE protocol Pulmonary: Adequate o2 sats on room air -- Oxygen has needed to maintain saturation >92%. -- encourage incentive spirometry. Gastrointestinal: -- regular diet ordered -- zofran prn nausea. Genitourinary: lower UOP, if pt does not have a spontaneous void this morning, replace tejeda catheter -- strict I/Os Fluid/ Electrolytes: -- continue LR at 100cc/hour ID: Last fever 03/31 at 2035 hrs to 39.1 -- blood and urine cultures pending -- Continue vancomycin and zosyn until at least 48 hours afebrile Prophylaxis: --Lovenox 40mg sq daily. --Incentive spirometry. --ICDs. Disposition: --Continues to require inpatient hospitalization. AKILA GREGORIO MD PGY4 04/01/2018 I have seen and examined the patient and reviewed and edited the resident's above history and I agree with the details as written. The assessment and plan were formulated in discussion with me and I agree with them as documented. Stella Prather MD Stella Prather MD - 03/31/2018 8:54 PM EDT Images from the original note were not included. Acute Event Note: ID: Sara Morton is an 42 y.o. woman who is post operative day #1 s/p ex- lap, bilateral salpingo-oohprectomy, now febrile with tachycardia. S: Thai was evaluated earlier this afternoon with asympatomic tachycardia to the 140s. EKG demonstrated normal sinus rhythm (confirmed on the telephone with cardiology). Fluid bolus was initiated forUOP 25mL/hr x4 hours and CBC/BMP were obtained. Potassium and magnesium were repleted at that time. She was otherwise afebrile with normal blood pressure. At that time of that evaluation, Thai stated that she felt fine. She denies shortness of breath. She was up to the bathroom and voided spontaneously. She is passing gas. She denied fever, sweats, chills. She was tolerating a regular diet without nausea or vomiting. She denies chest pain or palpitations. Abdominal pain is well controlled at this time. Consideration for CT PE was made at that time iftachycardia did not respond to hydration. Responded to the bedside again for fever to 39.1C. Patient states that she now feels hot and sweaty.Otherwise she feels unchanged; no SOB, CP, palpitation, abdominal pain. O: Patient Vitals for the past 8 hrs: BP Temp Temp src Pulse Resp SpO2 03/31/18 2035 98/52 39.1 ??C (102.4 ??F) Oral (!) 139 28 96 % 03/31/18 1524 120/68 37.2 ??C (99 ??F) Oral (!) 128 16 98 % Gen lying in bed, appears well not with flushed cheeks Cardiac tachycardia with normal s1 and s2, no murmur Pulm CTAB no wheeze, no crackles or rhonchi Abd soft NT ND non-tympanitic, hypoactive bowel sounds VMLI with steristrips in place, no erythema or drainage Back epidural site intact and covered with clean dressing, no erythema Labs: Recent Labs 03/31/18 0337 WBC 10.1* HGB 10.3* HCT 31.8* PLATELET 258 Recent Labs 03/31/18 1738 03/31/18 0337 NA 137 138 K 3.3* 4.1 CL 102 105 CO2 23 21* BUN 11 10 CREATININE 0.77 0.75 No results for input(s): AST, ALT, ALKPHOS, BILITOT, BILIDIR in the last 168 hours. Recent Labs 03/31/18 1738 03/31/18 0337 CALCIUM 8.0* 8.0* PM CBC pending A/P: Sara Morton is an 42 y.o. woman who is post operative day #1 s/p ex- lap, bilateral salpingo-oohprectomy, now febrile with tachycardia. Likely infectious etiology and sepsis bundle has been triggered. Unknown source at this time. - blood cultures x2, urine culture pending - CXR to r/o pneumonia - fluid bolus initiated - lactate, CBC pending - vancomycin and zosyn ordered - hold off on CT PE at this time given low pretest probability (Well's criteria 3) - tylenol 625mg q6 hrs [address] Prather, Attending. PHYLICIA TEJADA MD PGY4 Addendum: Lactate 1.4 and WBC 7.8, UA pending CXR 03/31/18 IMPRESSION Large amount of intra-abdominal free air, correlate with recent surgical history or concern of potential hollow viscus injury. Discussed with vice president of finance, John Shipley, who stated that amount of free air is consistent with her laparotomy from yesterday. Will continue to monitor and consider CT abd/pelvis is fever does not resolve or abdominal symptoms concerning for bowel perforation. This would be unusually early forbowel perforation to cause post-operative fever. Continue monitoring at this time. Most Recent Vitals: 03/31/18 2206 BP: 92/50 Pulse: (!) 125 Resp: 22 Temp: 37.6 ??C (99.7 ??F) SpO2: 97% PHYLICIA TEJADA MD I have seen and examined the patient and reviewed and edited the resident's above history and I agree with the details as written. The assessment and plan were formulated in discussion with me and I agree with them as documented. Stella Prather MD Sites, Mario Clay MD - 03/31/2018 11:54 AM EDT Acute Pain Service - Epidural Daily Management Physician: Dr. Taylor Time of Service: 11:54 AM VITAL SIGNS: BP 100/58 (BP Location (NBP): Right arm, Patient Position: Sitting) Pulse 86 Temp 36.8 ??C (98.2??F) (Oral) Resp 8 Ht 159 cm (5' 2.6) Wt 77.6 kg (171 lb 1.2 oz) LMP 03/30/2018 Comment: thinmks she will start menses today SpO2 98% BMI 30.7 kg/m2 Epidural day: 2 days s/p placement POD: 1 days s/p Operative Procedures: Procedure(s) with comments: @EXPLORATORY LAPAROTOMY, WITH/WITHOUT BIOPSY(S) ([facility] 12.54) - RESEARCH BIOBANK @SALPINGO-OOPHORECTOMY, UNILATERAL OR AXEL ([facility] 12.16) Pertinent Medications: Continuous Infusions Bupivacaine 1/8 % (1.25 mg/mL) plus Fentanyl (2 micrograms/mL) infusing at 6 mls/hour plus PCEA at 3ml every 20 minutes. (No PCEA attempts) Lovenox 40mg SubQ HS Toradol 15mg IVP Q6H Tylenol 650mg PO Q6H PRN (none used in 24 hours) Oxycodone 5-10mg PO Q4H PRN (none used in 24 hours) Pertinent History: Uncomfortable in PACU and switch to a higher bupivacaine concentration. Assessment: Numerical Rating Scale (NRS) 0 /10 Pain now is none ROS: GI/Bowels Tolerating a regular diet. Denies flatus or BM. Nausea No Pruritis No Drowsiness No Patient is awake and alert. Deep breathing and coughing well. Demonstrates IS to 1000mL. Moves legs without difficulty. Epidural insertion site clean and without signs of infection. Plan: Continue current regimen until ROBF. Plan discussed with patient/RN/team. Please call with any questions or concerns. In the presence of Dr. Taylor, I am taking down these notes. JUAN LIN RN 03/31/2018 Pager # [phone] Health Aide (Brandon) Seen on daily rounds. I performed the above scribed service and agree with the accuracy of the note. Akila Gregorio MD - 03/31/2018 6:17 AM EDT Images from the original note were not included. Gynecology Post operative Progress Note ID: Sara Morton is an 42 y.o. woman who is post operative day #1 s/p ex- lap, bilateral salpingo-oohprectomy. Interval Events: - no acute events Subjective: Sara Morton reports that her pain is well controlled with PCEA. She has tolerated dinner without nausea or vomiting. Her tejeda catheter remains in place. She has ambulated once thus far without issues. No flatus. Patient reports waking up feeling 'drenched in sweat' this morning. She denies chest pain, shortness of breath, fever, chills, and leg pain. Physical Exam: Last value Range last 24 hrs Temperature Temp: 37.1 ??C (98.8 ??F) Temp: [36.4 ??C (97.5 ??F)-37.3 ??C (99.1 ??F)] Heart Rate Heart Rate: 90 Heart Rate: [61-121] Blood Pressure BP: 92/58 BP: (92-134)/(57-100) Respiratory Rate Resp: 18 Resp: [12-20] SpO2 SpO2: 98 % SpO2: [93 %-100 %] Art BP BP (Arterial Line): -- Physical Exam Gen: Alert, NAD Cardio: RRR, no MRG Pulm: CTAB, no wheezes or crackles. Abd: soft, non-distended, mildly tender to palpation. Incision: vertical midline incision well approximated with sterri strips. C/D/I Ext: warm, well-perfused, no edema bilaterally, ICDs in place : Tejeda catheter in place draining yellow urine. Vaginal bleeding noted to be minimal on fede-pad Laboratory (Last 24 Hours): Recent Labs 03/31/18 0337 WBC 10.1* HGB 10.3* HCT 31.8* PLATELET 258 Recent Labs 03/31/18 0337 NA 138 K 4.1 CL 105 CO2 21* BUN 10 CREATININE 0.75 MAGNESIUM 0.71 Assessment and Plan: Sara Morton is an 42 y.o. woman post operative day #1 s/p above procedure for adnexal mass. Patient is recovering well in the immediate post-operative period with no acute concerns. Discussed symptoms associated with surgical menopause. Pain Control: adequate pain control with PCEA, Toradol --> ibuprofen, tylenol, oxycodone prn. -- PCEA management per APS -- transition to PO pain meds when able to take adequate PO Cardiac/Heme: currently normotensive and hemodynamically stable Pulmonary: Adequate o2 sats on room air -- Oxygen has needed to maintain saturation >92%. -- encourage incentive spirometry. Gastrointestinal: -- regular diet ordered -- zofran prn nausea. Genitourinary: adequate UOP -- strict I/Os -- discontinue tejeda catheter when ambulatory Fluid/ Electrolytes: -- LR at 100cc/hour. -- discontinue intravenous fluid when taking adequate PO ID: afebrile -- no current concerns Prophylaxis: --Lovenox 40mg sq daily. --Incentive spirometry. --ICDs. Disposition: --Continues to require inpatient hospitalization. AKILA GREGORIO MD 03/31/2018 Akila Gregorio MD - 03/30/2018 3:20 PM EDT Gynecology Post operative Progress Note ID: Sara Morton is an 42 y.o. woman who is post operative day #0 s/p ex- lap, bilateral salpingo-oohprectomy. Intraoperative Events: -EBL 100 cc -Findings: 1. > 30 cm right adnexal mass that extended to the level of the xiphoid process 2. Frozen section: ovarian mucinous cystic neoplasm, at least borderline tumor (2 transportation services representative sections). No evidence of malignancy in omental biopsy Subjective: Sara Morton reports that her pain is well controlled with PCEA. She has tolerated sips of waterand ice chips without nausea or vomiting. Her tejeda catheter remains in place. She stood up to get weighed and felt a bit unsteady. She denies chest pain, shortness of breath, fever, chills, and leg pain. Physical Exam: Last value Range last 24 hrs Temperature Temp: 36.6 ??C (97.9 ??F) Temp: [36.4 ??C (97.5 ??F)-36.9 ??C (98.4 ??F)] Heart Rate Heart Rate: 67 Heart Rate: [61-121] Blood Pressure BP: 111/59 BP: (109-134)/(57-100) Respiratory Rate Resp: 14 Resp: [12-20] SpO2 SpO2: 96 % SpO2: [93 %-100 %] Art BP BP (Arterial Line): -- Approximately 40 ml / hr for the past 2 hours Physical Exam Gen: Alert, NAD Cardio: RRR, no MRG Pulm: CTAB, no wheezes or crackles. Abd: soft, non-distended, mildly tender to palpation. Incision: vertical midline incision - with dressing in place. C/D/I Ext: warm, well-perfused, no edema bilaterally, ICDs in place : Tejeda catheter in place draining yellow urine. Vaginal bleeding noted to be minimal on fede-pad Laboratory (Last 24 Hours): Labs pending for am. Assessment and Plan: Sara Morton is an 42 y.o. woman post operative day #0 s/p above procedure for adnexal mass. Patient is recovering well in the immediate post-operative period. Pain Control: adequate pain control with PCEA, Toradol --> ibuprofen, tylenol, oxycodone prn. -- PCEA management per APS -- transition to PO pain meds when able to take adequate PO Cardiac/Heme: currently normotensive and hemodynamically stable -- Cbc pending for am. Pulmonary: Adequate o2 sats on room air -- Oxygen has needed to maintain saturation >92%. -- encourage incentive spirometry. Gastrointestinal: -- regular diet ordered -- zofran prn nausea. Genitourinary: adequate UOP -- strict I/Os -- discontinue tejeda catheter when ambulatory Fluid/ Electrolytes: -- Lytes pending for AM. -- LR at 100cc/hour. -- discontinue intravenous fluid when taking adequate PO ID: afebrile -- no current concerns Prophylaxis: --Lovenox 40mg sq daily. --Incentive spirometry. --ICDs. Disposition: --Continues to require inpatient hospitalization. AKILA GREGORIO MD 03/30/2018 [facility], Mario Clay MD - 03/30/2018 3:04 PM EDT APS Note Patient doing well in PACU. Her pain is 7/10 with deep breathing. We have bolused her 5 ml of 0.25% bupivacaine, and will switch her solution to 1/8% bupivacaine at the same settings. She feels much better. Parris Lock RN - 03/30/2018 2:30 PM EDT 1420- Pt instructed about PCEA - awakened pt to teach her & she indicates that she understands & has no further questions. Parris Lock RN - 03/30/2018 1:17 PM EDT 1300- Epidural started by anesthesia personnel & medicated via IV for discomfort. documented in this encounter H&P Notes Akila Gregorio MD - 03/30/2018 8:25 AM EDT Inpatient JUNIOR SALES REPRESENTATIVE - Admission Interval Note I have reviewed the pre-procedure H&P completed by Dr. Van on 03/04/2018. (x) Condition unchanged since H&P originally performed. OR () Condition changed since H&P originally performed. See interval note below. Interval Note: Angelita Morton is a 42 y.o. woman with a large pelvic mass (30 x 23cm) concerning for ovarian cancer vs benign etiology. Will plan to proceed with planned procedure: open LSO with possible ovarian cancer staging based on frozen section. Surgical consents previously signed in clinic and in patient chart. A copy of this document will be sent to the patient's Primary Care Physician and/or Referring Physician. AKILA GREGORIO MD 03/30/2018 Associated attestation - Nohemy Van MD - 03/30/2018 1:16 PM EDT Into see patient prior to her surgery. We reviewed the planned procedure. Consents complete and in her chart. Questions answered. documented in this encounter Miscellaneous Notes Plan of Care - Tabatha Rao RN - 04/03/2018 2:29 AM EDT Problem: Patient Care Overview Goal: Plan of Care Review Outcome: Ongoing (Interventions Implemented as Appropriate) 04/02/18 1430 04/02/18 2100 Coping/Psychosocial Plan Of Care Reviewed With -- patient Plan of Care Review Progress progress towards functional goals is fair -- OUTCOME EVALUATION NOTE: ?? OUTCOME SUMMARY: Passing flatus on toilet only and passing watery/liquid green and dark brown bowel movement. Has notpassed any solid fecal matter yet and abd CT reveals question of obstruction. Docusate/senna given with evening meds. Pt wearing a fede pad as she has trouble getting to the toilet quick enough sometimes with liquid diarrhea. Denies nausea. Pain is well controlled with toradol and PO tylenol. Remains on room air. Using IS at bedside. Did have RLL crackle. O2 sat in the 90's. Denies SOB or cough. Encouraged continued use of the IS and to do coughing and deep breathing. Pt continues to be tachy in thelow 100's. IVF still continue at 100cc/hr. IV abx contine. Pt afebrile this shift. Will continue to m onitor ? PLAN MOVING FORWARD: Monitor labs and vitals Continue antibiotics/ monitor for sepsis Monitor for signs of bleeding/infection Monitor electrolytes Encourage ambulation Encourage PO intake Encourage IS use ?? INDIVIDUALIZED FALL PREVENTION INTERVENTIONS: ?? Patient-specific fall risk factors per assessment: [current deficits]: Glasses; abx; edema; IVF/pumps connected; SCDs ?? Assistance [level of assistance required for transfers and ambulation]: 1 assist ?? Supervision [direct monitoring required during toileting and ADLs]: 1 assist- stand by ?? Surveillance [continuous indirect monitoring]: Masmio; call valencia in reach; purposeful rounding ?? Patient-specific fall prevention interventions for sensory deficits provided, if applicable: ? CPG GOAL OUTCOME EVALUATION: Goal: Individualization & Mutuality Outcome: Ongoing (Interventions Implemented as Appropriate) 03/30/18 1500 04/03/18 0207 Individualization Patient Specific Preferences -- I prefer my pills cut in half. Mutuality/Individual Preferences What Anxieties, Fears or Concerns Do You Have About Your Health or Care? No -- What Questions Do You Have About Your Health or Care? Not right now -- What Information Would Help Us Give You More Personalized Care? No -- Goal: Fall Prevention-Safe Patient Handling Outcome: Ongoing (Interventions Implemented as Appropriate) 04/02/18 1647 04/02/18 2100 Restraint Interventions Safety Promotion/Fall Prevention -- fall prevention program maintained;nonskid shoes/slippers when out of bed;activity supervised Activity Activity Type ambulated in harden -- Activity Assistance Provided -- assistance, 1 person Assistive Device Utilized -- none Positioning Body Position -- independent Daily Care Interventions Self-Care Promotion -- independence encouraged Hannah Fall Risk History of Falling -- 0 Secondary Diagnosis -- 0 Ambulatory Aids -- 0 Intravenous Therapy/Heparin/Saline Lock -- 20 Gait/Transferring -- 10 Mental Status -- 0 Score -- 30 OTHER Hannah Fall Risk -- Med Goal: Infection Control Outcome: Ongoing (Interventions Implemented as Appropriate) 04/02/18 2100 Safety Interventions Isolation Precautions standard precautions maintained Infection Prevention environmental surveillance performed;rest/sleep promoted Coping Strategies Supportive Measures active listening utilized;self-care encouraged;self- reflection promoted;self-responsibility promoted;verbalization of feelings encouraged Goal: Discharge Needs Assessment Outcome: Ongoing (Interventions Implemented as Appropriate) 03/30/18 1730 04/02/18 1430 Discharge Needs Assessment Concerns To Be Addressed -- no discharge needs identified Readmission Within The Last 30 Days -- no previous admission in last 30 days Provider Choice List(s) Given no -- Equipment Needed After Discharge -- none Discharge Disposition -- still a patient Current Health Anticipated Changes Related to Illness -- none Activity/Self Care Review of Systems Equipment Currently Used at Home -- none Living Environment Transportation Available -- car;family or friend will provide Problem: Pain, Acute (Adult) Goal: Identify Related Risk Factors and Signs and Symptoms Related risk factors and signs and symptoms are identified upon initiation of Human Response Clinical Practice Guideline (CPG) 04/02/18 1430 Pain, Acute Related Risk Factors (Acute Pain) surgery;procedure/treatment Signs and Symptoms (Acute Pain) fatigue/weakness;BADLs/IADLs reluctance/inability to perform;guarding/abnormal posturing/positioning;nausea/vomiting/anorexia Goal: Acceptable Pain Control/Comfort Level Patient will demonstrate the desired outcomes by discharge/transition of care. Outcome: Ongoing (Interventions Implemented as Appropriate) 04/02/18 1430 Pain, Acute (Adult) Acceptable Pain Control/Comfort Level making progress toward outcome Plan of Care - Kayla Mohr RN - 04/02/2018 2:51 PM EDT Problem: Patient Care Overview Goal: Plan of Care Review Outcome: Ongoing (Interventions Implemented as Appropriate) 04/02/18 0940 04/02/18 1430 Coping/Psychosocial Plan Of Care Reviewed With patient -- Plan of Care Review Progress -- progress towards functional goals is fair OUTCOME EVALUATION NOTE: OUTCOME SUMMARY: Sara had a good day. Remains afebrile, hypotensive 100's/60's. She reports little appetite, but was able to eat soup for lunch with no nausea/vomiting. Continues w/ liquid stool. Reports minimal pain at incision site. Epidural d/c'd this AM by APS. Pain is managed with IV toradol, refusing PO tylenol at the moment because she doesn't have pain. Pt educated on getting ahead of the pain before it starts. Walked around the unit today. Denies passing gas, bowel sounds hypoactive. Will continue to monitor. PLAN MOVING FORWARD: Encourage ambulation/[place]. Monitor labs, VS, I/O. Promote BM. Continue abx. INDIVIDUALIZED FALL PREVENTION INTERVENTIONS: Patient-specific fall risk factors per assessment: [current deficits]: Generalized weakness, recent surgery, IV tubing/pole. Assistance [level of assistance required for transfers and ambulation]: SBA. Supervision [direct monitoring required during toileting and ADLs]: Arms reach. Surveillance [continuous indirect monitoring]: Hourly rounding, bed in lowest position, call valencia within reach, calls appropriately, bed alarm engaged. Patient-specific fall prevention interventions for sensory deficits provided, if applicable: [X] N/A CPG GOAL OUTCOME EVALUATION: Goal: Individualization & Mutuality Outcome: Ongoing (Interventions Implemented as Appropriate) 03/30/18 1500 03/30/18 1734 Individualization Patient Specific Preferences -- None at this time Patient Specific Goals -- To go home Mutuality/Individual Preferences What Anxieties, Fears or Concerns Do You Have About Your Health or Care? No -- What Questions Do You Have About Your Health or Care? Not right now -- What Information Would Help Us Give You More Personalized Care? No -- Goal: Fall Prevention-Safe Patient Handling Outcome: Ongoing (Interventions Implemented as Appropriate) 04/02/18 0940 04/02/18 1300 Restraint Interventions Safety Promotion/Fall Prevention activity supervised;fall prevention program maintained;muscle strengthening facilitated;nonskid shoes/slippers when out of bed;safety round/check completed -- Activity Activity Assistance Provided -- assistance, 1 person Positioning Body Position independent;supine, head elevated -- Daily Care Interventions Self-Care Promotion independence encouraged;BADL personal objects within reach;BADL personal routines maintained -- OTHER Hannah Fall Risk Med -- Goal: Infection Control Outcome: Ongoing (Interventions Implemented as Appropriate) 04/02/18 0940 Safety Interventions Isolation Precautions standard precautions maintained Infection Prevention environmental surveillance performed;rest/sleep promoted Coping Strategies Supportive Measures active listening utilized;decision-making supported;goal setting facilitated;positive reinforcement provided;problem solving facilitated;relaxation techniques promoted;self-care encouraged;self-reflection promoted;self-responsibility promoted;verbalization of feelings encouraged Goal: Discharge Needs Assessment Outcome: Ongoing (Interventions Implemented as Appropriate) 04/02/18 1430 Discharge Needs Assessment Concerns To Be Addressed no discharge needs identified Readmission Within The Last 30 Days no previous admission in last 30 days Equipment Needed After Discharge none Discharge Disposition still a patient Current Health Anticipated Changes Related to Illness none Activity/Self Care Review of Systems Equipment Currently Used at Home none Living Environment Transportation Available car;family or friend will provide Goal: Interdisciplinary Rounds/Family Conf Outcome: Ongoing (Interventions Implemented as Appropriate) 04/02/18 1430 Interdisciplinary Rounds/Family Conf Participants nursing;patient;other (see comments);physician (APS) Problem: Pain, Acute (Adult) Goal: Identify Related Risk Factors and Signs and Symptoms Related risk factors and signs and symptoms are identified upon initiation of Human Response Clinical Practice Guideline (CPG) Outcome: Ongoing (Interventions Implemented as Appropriate) 04/02/18 1430 Pain, Acute Related Risk Factors (Acute Pain) surgery;procedure/treatment Signs and Symptoms (Acute Pain) fatigue/weakness;BADLs/IADLs reluctance/inability to perform;guarding/abnormal posturing/positioning;nausea/vomiting/anorexia Goal: Acceptable Pain Control/Comfort Level Patient will demonstrate the desired outcomes by discharge/transition of care. Outcome: Ongoing (Interventions Implemented as Appropriate) 04/02/18 1430 Pain, Acute (Adult) Acceptable Pain Control/Comfort Level making progress toward outcome Consult Note - Rosanna Amaya, [facility] - 04/02/2018 2:39 PM EDT Clinical Pharmacist Note-Vanc Sara Morton [phone] Sara Morton is a 42 y.o. female is being monitored due to antibiotic therapy which includes intravenous vancomycin. Regimen: Vancomycin 1000 mg every 12 hours started after 2000 mg loading dose Indication: empiric coverage of sepsis bundle triggered Initiation Date: 04/01 with loading dose Day of Therapy: 2 Targeted Goal Range: 15 - 20 mcg/mL Pharmacokinetic information: Wt Readings from Last 1 Encounters: 04/02/18 79.7 kg (175 lb 11.3 oz) Ht Readings from Last 1 Encounters: 03/30/18 159 cm (5' 2.6) Labs: Vancomycin: 04/02/2018: Vanc Trough 19.1 mg/L (Ref range: mg/L) Creatinine clearance: 03/04/2018: Creatinine 0.91 mg/dL (Ref range: 0.70 - 1.20 mg/dL) 03/31/2018: Creatinine 0.75 mg/dL (Ref range: 0.70 - 1.20 mg/dL); Creatinine 0.77 mg/dL (Ref range: 0.70 - 1.20 mg/dL) 04/01/2018: Creatinine 0.85 mg/dL (Ref range: 0.70 - 1.20 mg/dL) Recommendations: Dosing recommendations: ??? No change in vancomycin dose or dosing interval at this time. ??? Per MD note planning to stop tonight if patient remains afebrile Monitoring recommendations: ??? Recheck vancomycin trough level (30 minutes prior to a scheduled dose) if significant changes inSCr, BUN or fluid status occur. We will continue to monitor the patient as long as she remains on vancomycin therapy. Please watch SCr, BUN and fluid status closely. Please page the care area pharmacist with any questions you may have. Alternately, during off-hours you may call [phone] to contact a pharmacist. ROSANNA AMAYA RPH Pager [phone] Plan of Care - Meghan Rivero RN - 04/02/2018 4:47 AM EDT Problem: Patient Care Overview Goal: Plan of Care Review Outcome: Ongoing (Interventions Implemented as Appropriate) 03/30/18 1734 04/01/18 2100 Coping/Psychosocial Plan Of Care Reviewed With -- patient Plan of Care Review Progress progress toward functional goals as expected -- OUTCOME EVALUATION NOTE: OUTCOME SUMMARY: Quiet in the evening. Resting well between care overnight. Denies nausea. Afebrile. Remains tachy [id number]. Pain well controlled with epidural, toradol, tylenol. PLAN MOVING FORWARD: Encourage mobilization and increased po intake as tolerated. Anticipate discontinuing epidural. Goal: Individualization & Mutuality Outcome: Ongoing (Interventions Implemented as Appropriate) 03/30/18 1500 03/30/18 1734 Individualization Patient Specific Preferences -- None at this time Patient Specific Goals -- To go home Mutuality/Individual Preferences What Anxieties, Fears or Concerns Do You Have About Your Health or Care? No -- What Questions Do You Have About Your Health or Care? Not right now -- What Information Would Help Us Give You More Personalized Care? No -- Goal: Fall Prevention-Safe Patient Handling Outcome: Ongoing (Interventions Implemented as Appropriate) 03/31/18 1550 04/01/18 0919 04/01/18 1056 Restraint Interventions Safety Promotion/Fall Prevention -- -- -- Activity Activity Type -- -- -- Activity Assistance Provided -- -- assistance, stand-by Assistive Device Utilized none -- -- Positioning Body Position -- -- -- Daily Care Interventions Self-Care Promotion -- independence encouraged -- Brielle Fall Risk History of Falling -- -- -- Secondary Diagnosis -- -- -- Ambulatory Aids -- -- -- Intravenous Therapy/Heparin/Saline Lock -- -- -- Gait/Transferring -- -- -- Mental Status -- -- -- Score -- -- -- OTHER Hannah Fall Risk -- -- -- 04/01/181999 Restraint Interventions Safety Promotion/Fall Prevention safety round/check completed;nonskid shoes/slippers when out of bed;fall prevention program maintained;activity supervised Activity Activity Type activity adjusted per tolerance Activity Assistance Provided -- Assistive Device Utilized -- Positioning Body Position independent Daily Care Interventions Self-Care Promotion -- Hannah Fall Risk History of Falling 0 Secondary Diagnosis 0 Ambulatory Aids 0 Intravenous Therapy/Heparin/Saline Lock 20 Gait/Transferring 0 Mental Status 0 Score 20 OTHER Hannah Fall Risk Med Goal: Infection Control Outcome: Ongoing (Interventions Implemented as Appropriate) 04/01/18199904/01/18 2100 Safety Interventions Isolation Precautions standard precautions maintained -- Infection Prevention rest/sleep promoted -- Coping Strategies Supportive Measures -- active listening utilized Goal: Discharge Needs Assessment Outcome: Ongoing (Interventions Implemented as Appropriate) 03/30/18 1500 03/30/18 173 Discharge Needs Assessment Concerns To Be Addressed -- no discharge needs identified Readmission Within The Last 30 Days -- no previous admission in last 30 days Provider Choice List(s) Given -- no Equipment Needed After Discharge -- none Discharge Disposition -- still a patient Current Health Anticipated Changes Related to Illness -- none Activity/Self Care Review of Systems Equipment Currently Used at Home -- none Living Environment Transportation Available car -- Goal: Interdisciplinary Rounds/Family Conf Outcome: Ongoing (Interventions Implemented as Appropriate) 03/30/18 1730 Interdisciplinary Rounds/Family Conf Participants nursing;family;patient;physician Plan of Care - Tamy Ta RN - 04/01/2018 5:04 PM EDT Problem: Patient Care Overview Goal: Plan of Care Review Outcome: Ongoing (Interventions Implemented as Appropriate) 03/30/18 1734 04/01/18 0919 Coping/Psychosocial Plan Of Care Reviewed With -- patient Plan of Care Review Progress progress toward functional goals as expected -- OUTCOME EVALUATION NOTE: OUTCOME SUMMARY: OUTCOME SUMMARY: ?? Pt has remained afebrile all shift. Pt had an episode of emesis this morning after attempting to swallow a large potassium pill. 150 of green emesis was measured once a bag was given to pt. aware. IV meds were ordered for this AM. CT scan of chest, abdomen and pelvis was done, see note. Negative for PE. Epidural was paused this morning in attempt to pull this afternoon, but with hypoactive BS, epidural was turned back on, bag was changed at 1600. Pts midline incision GRETA, steri strips in tact. SCD's on. A scant amount of serosanguineous drainage noted on fede pad. Pts urine output has increased today. Urine cultures sent. Pt still remains to be tachycardic throughout the shift. 120's this morning and this afternoon she has been sustaining 110's. Remains asymptomatic. Pt has had 4 liquid stoolsthis shift, paged. Will continue to monitor. ? PLAN MOVING FORWARD: ? Monitor vitals and labs Manage pain/epidural Monitor tejeda output Encourage ambulation Encourage PO intake ? INDIVIDUALIZED FALL PREVENTION INTERVENTIONS: ? Patient-specific fall risk factors per assessment: [current deficits]:?High fall risk (epidural),c/o unsteady on feet and dizzy while standing ? Assistance [level of assistance required for transfers and ambulation]:?SBA ? Supervision [direct monitoring required during toileting and ADLs]:?Within arms reach ? Surveillance [continuous indirect monitoring]:?Bed alarm, masimo, call valencia in reach, hourly rounding ? Patient-specific fall prevention interventions for sensory deficits provided, if applicable:?N/A ? CPG GOAL OUTCOME EVALUATION:? Med Student Progress Note - Dakota Aguiar - 04/01/2018 6:09 AM EDT Surgery Inpatient Progress Note S: Sara Morton is a 42 y.o. female with no significant past medical history now 2 Days Post-Op for exploratory laparotomy and bilateral salpingo- ooophorectomy. Pain continues to be well controlled. Has not had to push PCEA button overnight. Endorses fevers overnight. She also has some shortness of breath when taking a deep breath. She tolerated a normal diet yesterday. She ambulated twice yesterday with no issues. One small bowel movement last night and passing gas while on the toilet. Denies chest pain, nausea, vomiting, dysuria. Overnight events: -Tachycardic to 140s and febrile to 102.4 last night at 10pm -Sepsis bundle activated; patient started on vanc/zosyn; lactate back at 1.4; x- ray with free air below diaphragm but otherwise normal; no acute changes in her WBC or hemoglobin O: Last value Range last 24hrs Temperature Temp: 37 ??C (98.6 ??F) Temp: [36.8 ??C (98.2 ??F)-39.1 ??C (102.4 ??F)] Heart Rate Heart Rate: (!) 111 Heart Rate: [83-139] Blood Pressure BP: 94/64 BP: (92-120)/(50-68) Respiratory Rate Resp: 24 Resp: [16-28] SpO2 SpO2: 97 % SpO2: [96 %-98 %] 03/31 0701 - 04/01 0700 In: 3342.3 [P.O.:1700; I.V.:1500] Out: 875 [Urine:875] urine output rate of 36cc/hr during last 24 hours but only 100cc total in last 12 hours PE: General: AOx3, NAD, conversant HEENT: PERRL, anicteric sclerae Cardiopulm: RRR, no mumurs, CTAB no wheezes or crackles Abd: +BS, soft, nontender to palpation, mildly distended, incisional site CDI Skin: warm, dry Ext: no c/c/e, cap refill <2sec Neuro: CN II-XII intact. Non-focal, moving all four extremities spontaneously Labs: Recent Labs 03/31/18205603/31/18 1738 03/31/18 0337 WBC 7.8 5.5 10.1* HGB 11.1* 11.1* 10.3* HCT 34.6* 34.3* 31.8* PLATELET 239 209 258 Recent Labs 03/31/18 1738 03/31/18 0337 NA 137 138 K 3.3* 4.1 CL 102 105 CO2 23 21* BUN 11 10 CREATININE 0.77 0.75 GLUCOSE 127 121 CALCIUM 8.0* 8.0* MAGNESIUM 0.62* 0.71 A/P: aSra Morton is a 42 y.o. female now 2 Days Post-Op s/p exploratory laparotomy and bilateral salpingo-oophorectomy. Overall, she had multiple episodes of tachycardia yesterday to the 140s and was febrile to 102.4 last night. Sepsis protocol was activated and she was started on vanc/zosyn. X-ray was normal with the exception of free air below diaphragm, lactate normal, no leukocytosis. Etiology for fever and tachycardia is unclear, but likely due to post-operative atelectasis vs bacteremia vs pulmonary embolism--will follow-up on urine and blood cultures and consider chest CT, especially if tachycardia/fever persists in the setting of antibiotics Neuro: continue with PCEA pump and ketorolac/ibuprofen, appreciate acute pain team recs regarding PCEA pump infusion rate, can likely decrease infusion rate today CV: still tachycardic but improving from 140 to 110; consider additional fluid boluses if tachycardia persists, consider decreasing PCEA infusion rate to prevent lower BP, check CBC this morning Pulm: incentive spirometer, goal SpO2 >92%, chest x-ray last night showed free air below diaphragm likely due to ex-lap but otherwise normal, consider CT to rule out PE if tachycardia/fever persists FEN: continue with 100cc/hr of LR and possible additional boluses, consider re- inserting Tejeda if urine production continues to be low Renal: monitor urine output, continue to monitor electrolytes daily, replete potassium/magnesium if low, check BMP this morning GI: continue regular diet as tolerated, continue docusate ID: continue with vancomycin and zosyn, continue to monitor WBC daily, follow-up on urine and blood cultures Lines: PIV Ppx: Lovenox 40mg QHS, OOB, cont. PT/OT, Full Code Dakota Aguiar, MS4 Pager [phone] Plan of Care - Michelet Cottrell RN - 04/01/2018 2:34 AM EDT Problem: Patient Care Overview Goal: Plan of Care Review 03/30/18 1734 03/31/18 2206 Coping/Psychosocial Plan Of Care Reviewed With -- patient Plan of Care Review Progress progress toward functional goals as expected -- OUTCOME EVALUATION NOTE: OUTCOME SUMMARY: Sara was tachycardic in the 140s at the beginning of the shift- 500ml LR bolus administered. Sara then triggered the sepsis bundle for tachycardia, fever, and respiratory rate around 2044. BP soft, but stable. Lactate drawn; 1.4 Blood cultures drawn x2. Stat Chest x-ray ordered; non remarkable. 500ml NS bolus administered. Acetaminophen administered; good effect. Tachycardia improving. Zosyn and Vancomycin 2g ordered and administered. Urine continues to be bloody. Scant drainage on fede pad. Passing flatus; had one watery bowel movement. No nausea. Pain well controlled with ibuprofen, tylenol, and PCEA. Will continue to monitor Update: 500cc LR bolus just administered; patient still tachy in low 100s-1teens PLAN MOVING FORWARD: Monitor labs and vitals Continue antibiotics/ monitor for sepsis Monitor for signs of bleeding/infection Monitor electrolytes Encourage ambulation Encourage PO intake INDIVIDUALIZED FALL PREVENTION INTERVENTIONS: Patient-specific fall risk factors per assessment: [current deficits]: Glasses; PCEA; abx; edema Assistance [level of assistance required for transfers and ambulation]: 1 assist Supervision [direct monitoring required during toileting and ADLs]: 1 assist Surveillance [continuous indirect monitoring]: Masmio; call valencia in reach; purposeful rounding Patient-specific fall prevention interventions for sensory deficits provided, if applicable: CPG GOAL OUTCOME EVALUATION: Plan of Care - Tamy Ta RN - 03/31/2018 4:00 PM EDT Problem: Patient Care Overview Goal: Plan of Care Review Outcome: Ongoing (Interventions Implemented as Appropriate) 03/30/18 1734 03/31/18 0810 Coping/Psychosocial Plan Of Care Reviewed With -- patient Plan of Care Review Progress progress toward functional goals as expected -- OUTCOME EVALUATION NOTE: OUTCOME SUMMARY: Pts midline incision ENGLISH AS A [employer], some serosanguinous blood noted on lower steri strips. SCD's on. Epidural/bupivicane epidural is running at this time, has been complaining of some mild discomfort, 2/10. A mild amount of serosanguineous drainage noted on fede pad. Tejeda was d/c's at 1330, voided a scant amount of red urine, MD aware, given till 1800 to void tonight. Pt has been tachycardic this afternoon, highest 128, asymptomatic besides some chest soreness MD aware, noted to be in a regular rhythm. STAT EKG ordered, it showed sinus tachycardia, otherwise normal EKG. STAT labs were ordered. Potassium and magnesium were replaced this shift. Pt ambulated around the unit 2X this shift. Good PO intake. Will continue to monitor. ?? PLAN MOVING FORWARD: ?? Monitor vitals and labs Manage pain/epidural Monitor tejeda output Encourage ambulation Encourage PO intake ?? INDIVIDUALIZED FALL PREVENTION INTERVENTIONS: ?? Patient-specific fall risk factors per assessment: [current deficits]: High fall risk (epidural), c/o unsteady on feet and dizzy while standing ?? Assistance [level of assistance required for transfers and ambulation]: SBA ?? Supervision [direct monitoring required during toileting and ADLs]: Within arms reach ?? Surveillance [continuous indirect monitoring]: Bed alarm, masimo, call valencia in reach, hourly rounding ?? Patient-specific fall prevention interventions for sensory deficits provided, if applicable: N/A ? CPG GOAL OUTCOME EVALUATION: ?? Med Student Progress Note - Dakota Aguiar - 03/31/2018 6:01 AM EDT Surgery Inpatient Progress Note S: Sara Morton is a 42 y.o. female with no significant past medical history now 1 Day Post-Op for exploratory laparotomy and bilateral salpingo- ooophorectomy. No complaints this AM. Pain is well controlled at 1/10 in severity. Has not had to push PCEA button overnight. Denies f/c/n/v/sob/cp.She tolerated a few bites of cottage cheese and chicken last night. She got out of bed once to get weighed. No bowel movements, not passing flatus yet. Overnight events: -no acute events overnight O: Last value Range last 24hrs Temperature Temp: 37.1 ??C (98.8 ??F) Temp: [36.4 ??C (97.5 ??F)-37.3 ??C (99.1 ??F)] Heart Rate Heart Rate: 90 Heart Rate: [61-121] Blood Pressure BP: 92/58 BP: (92-134)/(57-100) Respiratory Rate Resp: 18 Resp: [12-20] SpO2 SpO2: 98 % SpO2: [93 %-100 %] 03/30 0701 - 03/31 0700 In: 3956.3 [P.O.:360; I.V.:3514] Out: 860 [Urine:760] urine output rate of 31cc/hr PE: General: AOx3, NAD, conversant HEENT: PERRL, anicteric sclerae Cardiopulm: RRR, no mumurs, CTAB no wheezes or crackles Abd: soft, diffusely mildly tender to palpation, non-distended, incisional site CDI Skin: warm, dry Ext: no c/c/e, cap refill <2sec Neuro: CN II-XII intact. Non-focal, moving all four extremities spontaneously : Urine catheter putting out yellow, clear urine Labs: Recent Labs 03/31/18 0337 WBC 10.1* HGB 10.3* HCT 31.8* PLATELET 258 Recent Labs 03/31/18 0337 NA 138 K 4.1 CL 105 CO2 21* BUN 10 CREATININE 0.75 GLUCOSE 121 CALCIUM 8.0* MAGNESIUM 0.71 A/P: Sara Morton is a 42 y.o. female now 1 Day Post-Op s/p exploratory laparotomy and bilateralsalpingo-oophorectomy. Overall, she had an uneventful night, pain is well controlled, and is tolerating regular diet. ?? Neuro: continue with PCEA pump and ketorolac/ibuprofen, appreciate acute pain team recs regarding PCEA pump infusion rate CV: continue to monitor BP (92/58 this morning), consider decreasing PCEA infusion rate to prevent lower BP, no signs of bleeding or hemodynamic instability Pulm: incentive spirometer, goal SpO2 >92% FEN: continue with 100cc/hr of LR until taking adequate PO intake Renal: can pull Tejeda if ambulating well, continue to monitor electrolytes daily GI: continue regular diet as tolerated, continue docusate ID: stable, continue to monitor WBC daily Lines: PIV, Tejeda catheter Ppx: Lovenox 40mg QHS, OOB, cont. PT/OT, Full Code Dakota Aguiar, MS4 Pager [phone] Plan of Care - Michelet Cottrell RN - 03/31/2018 2:29 AM EDT Problem: Patient Care Overview Goal: Plan of Care Review Outcome: Ongoing (Interventions Implemented as Appropriate) 03/30/18173303/30/182004 Coping/Psychosocial Plan Of Care Reviewed With -- patient Plan of Care Review Progress progress toward functional goals as expected -- OUTCOME EVALUATION NOTE: OUTCOME SUMMARY: Sara had a quiet night. VSS. Pain well controlled with PCEA and scheduled Ketorolac. No motor or sensory deficits. Tejeda draining concentrated, yellow urine. Fluids continued per DEC. Incentive spirometer encouraged. Midline incision C/D/I; covered with gauze. No reports of gas. Will continue to monitor PLAN MOVING FORWARD: Monitor labs and vitals D/c tejeda D/c fluids Encourage ambulation INDIVIDUALIZED FALL PREVENTION INTERVENTIONS: Patient-specific fall risk factors per assessment: [current deficits]: Midline incision; PCEA Assistance [level of assistance required for transfers and ambulation]: 1 assist Supervision [direct monitoring required during toileting and ADLs]: 1 assist Surveillance [continuous indirect monitoring]: Masimo; call valencia in reach; purposeful rounding Patient-specific fall prevention interventions for sensory deficits provided, if applicable: CPG GOAL OUTCOME EVALUATION: Plan of Care - Tamy Ta RN - 03/30/2018 5:40 PM EDT Problem: Patient Care Overview Goal: Plan of Care Review Outcome: Ongoing (Interventions Implemented as Appropriate) 06/27/18 1734 Coping/Psychosocial Plan Of Care Reviewed With patient;family Plan of Care Review Progress progress toward functional goals as expected OUTCOME EVALUATION NOTE: OUTCOME SUMMARY: Pt arrived to floor around 1530 from the PACU. Complaining of no pain at this time. Midline incisionis C/D/I. SCD's on. Epidural/bupivicane epidural is running at this time; bag changed with acute pain service this shift. No drainage on fede pad. Family at bedside. Will continue to monitor. PLAN MOVING FORWARD: Monitor vitals and labs Manage pain/epidural Monitor tejeda output Encourage ambulation Encourage PO intake INDIVIDUALIZED FALL PREVENTION INTERVENTIONS: Patient-specific fall risk factors per assessment: [current deficits]: High fall risk (epidural), c/o unsteady on feet and dizzy while standing Assistance [level of assistance required for transfers and ambulation]: SBA Supervision [direct monitoring required during toileting and ADLs]: Within arms reach Surveillance [continuous indirect monitoring]: Bed alarm, masimo, call valencia in reach, hourly rounding Patient-specific fall prevention interventions for sensory deficits provided, if applicable: N/A CPG GOAL OUTCOME EVALUATION: Op Note - Aikla Gregorio MD - 03/30/2018 2:36 PM EDT [facility] [place] Operative Note ?? Patient Name: Sara Morton : [id number] MR#: [id number] ?? Case Date: 03/30/2018 ?? Surgeon: Surgeon(s) and Role: * Nohemy Van MD - Primary * Akila Gregorio MD ?? Preoperative diagnosis: OVARIAN MASS ?? Postoperative diagnosis: OVARIAN MASS ?? Procedure(s): @EXPLORATORY LAPAROTOMY, WITH/WITHOUT BIOPSY(S) (VU 12.54) @SALPINGO-OOPHORECTOMY, UNILATERAL OR AXEL (WRVU 12.16) Exploratory laparotomy with bilateral salpingo-oophorectomy, omental biopsy Anesthesia: General ?? Findings: 1. > 30 cm right adnexal mass that extended to the level of the xiphoid process 2. Frozen section: ovarian mucinous cystic neoplasm, at least borderline tumor (2 transportation services representative sections). No evidence of malignancy in omental biopsy ?? Complications: none ?? Estimated Blood Loss: 100 mL ?? Fluids: 1000 mL ?? Blood: none ?? Urine Output: 110 mL ?? Drains: tejeda ?? Disposition: awakened from anesthesia, extubated and taken to the recovery room in a stable condition, having suffered no apparent untoward event. ?? Condition: doing well without problems ?? Infection Bundle used? No HPI/Procedure Indications: Angelita Morton??is a 42 y.o.??woman with a large pelvic mass measuring 30 cm by 23 cm on imaging who presents for surgical management. Decision was made to proceed with an exploratory laparotomy with removal of pelvic mass, possible ovarian cancer staging based on frozen section. Risks of bleeding, infection, injury to surrounding structures (bowel, bladder, ureters), blood clot to leg or lung, needfor blood transfusion were discussed with the patient. Surgical consents signed and located in patient chart. Procedure Description: The patient was taken to the operating room with IV fluids running. She was placed in the dorsal lithotomy position. General anesthesia was induced without issues. The patient was given 2 gm of Ancef for infection prophylaxis. She was prepped and draped in the usual sterile fashion. A surgical timeoutwas performed. A midline vertical incision was made in the skin from pubic symphysis to approximately 7 cm above the umbilicus. This was carried down to the fascia with electrocautery. The fascia was nicked with the Bovie and the incision was carried superiorly and inferiorly while tenting the fascia up from underlying structures. The rectus muscles were in the midline, the peritoneum was identified, tented up and entered with the Bovie. Pelvic washings were performed and sent to pathology for further evaluation. A survey of the abdomen revealed findings as above. The large pelvic mass arising from the right adnexa was delivered through the incision. The right ureter was identified. A large window was then created with bovie cautery in the mesosalpinx. The rightinfundipulopelvic ligament was then doubly clamped with Andersons and subsequently ligated with the Ligasure. The mesosalpinx was subsequently ligated and divided to the level of the uterine cornua using Bovie cautery and the Ligasure. The specimen was sent to pathology for a frozen section which revealed a mucinous cystadenoma with borderline features. There was no evidence of disease elsewhere in the abdomen. A omental biopsy was performed using the Ligasure device, specimen was sent to pathology f or frozen section. Given the frozen section findings, decision was made to proceed with contralateral salpingo-oophorectomy, which was done in a similar fashion. The abdomen was irrigated with saline and drained. All pedicles were inspected and noted to be hemostatic. All laparotomy instruments were removed from the abdomen. The fascia was then closed with 1 looped PDS in a continuous running fashion in two parts, joining in the middle. The skin was closed with 4-0 monocryl. The patient tolerated the procedure well. All counts were reported to be correct x 2 at case close. The patient was awaken from general anesthesia and the patient went to the recovery room in stable condition. Dr. Van, attending physiican, was present for the entire procedure without any conflicting clinical responsibilities. AKILA GREGORIO MD 03/30/2018 Associated attestation - Nohemy Van MD - 04/09/2018 9:01 PM EDT Attestation: Case Date: 03/30/2018 I was present and I participated during the entire procedure (does not need to include opening and closing). NOHEMY VNA MD 04/09/2018 Brief Op Note - Akila Gregorio MD - 03/30/2018 1:09 PM EDT Brief Operative Note Patient Name: Sara Morton : [id number] MR#: [id number] Case Date: 03/30/2018 Surgeon: Surgeon(s) and Role: * Nohemy Van MD - Primary * Akila Gregorio MD Preoperative diagnosis: OVARIAN MASS Postoperative diagnosis: OVARIAN MASS Procedure(s): @EXPLORATORY LAPAROTOMY, WITH/WITHOUT BIOPSY(S) (WRU 12.54) @SALPINGO-OOPHORECTOMY, UNILATERAL OR AXEL (WRVU 12.16) Anesthesia: General Findings: 1. > 30 cm right adnexal mass that extended to the level of the xiphoid process 2. Frozen section: ovarian mucinous cystic neoplasm, at least borderline tumor (2 transportation services representative sections). No evidence of malignancy in omental biopsy Complications: none Estimated Blood Loss: 100 mL Specimens removed during surgery: Order Name Source Comment Collection Info Order Time SPECIMEN TO PATHOLOGY Pager #[phone] OR 27 [phone] OVARIAN MASS Right Adnexa excision YES, Please perform frozen section No 03/30/2018 10:46 AM Number of tissue samples (in container) 1 Time specimen removed from patient: 10:45 AM Biospecimen to store? Yes Study details (PI/Title/CPHS): Eitan / T2M2 / [id number] / [id number] / FRUIT WORKER Specimens will be processed up to the point of stabilization and coded. Consent or waiver confirmation to follow. After 60 days, without confirmation, we reserve the right to deidentify. Accept CYTOPATHOLOGY NON-GYNECOLOGICAL OR [phone] 03/30/2018 10:49 AM Pertinent clinical data and significant therapy: OVARIAN MASS Clinical impression: Ascites Procedure Type: Other (please specify in comments) Sample Type: Other, add description and source of specimen in comments Description and source of specimen: Ascites SPECIMEN TO PATHOLOGY Pager [phone] OR [phone] OVARIAN MASS Omental biopsy biopsy YES, Please perform frozen section No 03/30/2018 11:09 AM Number of tissue samples (in container) 1 Time specimen removed from patient: 11:08 AM Biospecimen to store? Yes Study details (PI/Title/CPHS): Laird / T2M2 / [id number] / [id number] / FRUIT WORKER Specimens will be processed up to the point of stabilization and coded. Consent or waiver confirmation to follow. After 60 days, without confirmation, we reserve the right to deidentify. Accept SPECIMEN TO PATHOLOGY OVARIAN MASS left tube and ovary excision No 03/30/2018 11:54 AM Number of tissue samples (in container) 1 Time specimen removed from patient: 11:54 AM Biospecimen to store? No Fluids: 1000 mL Blood: none Urine Output: 110 mL Drains: tejeda Disposition: awakened from anesthesia, extubated and taken to the recovery room in a stable condition, having suffered no apparent untoward event. Condition: doing well without problems (Please see the Surgical Encounter Summary for any Implant and Specimen details pertinent to this patient.) Infection Bundle used? No Associated attestation - Nohemy Van MD - 03/30/2018 1:17 PM EDT I was present for the entire procedur including opening and closing procedures. documented in this encounter Plan of Treatment Not on filedocumented as of this encounter Procedures Procedure Name Priority Date/Time Associated Comments Diagnosis INSTITUTIONAL COMMODITY ANALYST SCAN 04/04/2018 12:00 Res ults for this AM EDT procedure are i n the results section. VANCOMYCIN, TROUGH Timed 04/02/2018 11:56 Resul ts for this AM EDT procedure are i n the results section. HEMOGRAM Routine 04/02/2018 3:16 AM Results f or this EDT procedure are i n the results section. DIFFERENTIAL, Routine 04/02/2018 3:16 AM Results for this AUTOMATED EDT procedure are i n the results section. CBC (WITH DIFF) Routine 04/02/2018 3:16 AM EDT URINE CULTURE Routine 04/01/2018 12:36 Results fo r this PM EDT procedure are i n the results section. URINE HOLD STAT 04/01/2018 12:35 Results for this PM EDT procedure are i n the results section. URINALYSIS WITHOUT STAT 04/01/2018 12:35 Resul ts for this MICROSCOPIC PM EDT procedure are i n the results section. CT CHEST PULMONARY STAT 04/01/2018 12:23 Resul ts for this EMBOLISM W CONTRAST PM EDT procedur e are in the results section. CT ABDOMEN AND PELVIS Routine 04/01/2018 12:23 Re sults for this W CONTRAST PM EDT procedure are i n the results section. HEMOGRAM STAT 04/01/2018 11:12 Results for this AM EDT procedure are i n the results section. DIFFERENTIAL, STAT 04/01/2018 11:12 Results fo r this AUTOMATED AM EDT procedure are i n the results section. CBC (WITH DIFF) STAT 04/01/2018 11:12 AM EDT MAGNESIUM Routine 04/01/2018 8:18 AM Results f or this EDT procedure are i n the results section. BASIC METABOLIC PANEL Routine 04/01/2018 8:18 AM Results for this (NON-FASTING) EDT procedure are in the results section. XR CHEST ONE VIEW STAT 03/31/2018 9:10 PM Resu lts for this EDT procedure are i n the results section. HEMOGRAM STAT 03/31/2018 8:57 PM Results f or this EDT procedure are i n the results section. DIFFERENTIAL, STAT 03/31/2018 8:57 PM Results for this AUTOMATED EDT procedure are i n the results section. LACTATE, WHOLE BLOOD, STAT 03/31/2018 8:57 PM Results for this SEND TO LAB ([facility] [place] [place] EDT proce dure are in the results section. BLOOD CULTURE STAT 03/31/2018 8:57 PM Results for this EDT procedure are i n the results section. CBC (WITH DIFF) STAT 03/31/2018 8:57 PM EDT BLOOD CULTURE STAT 03/31/2018 8:55 PM Results for this EDT procedure are i n the results section. DIFFERENTIAL, MANUAL STAT 03/31/2018 5:38 PM R esults for this EDT procedure are i n the results section. HEMOGRAM STAT 03/31/2018 5:38 PM Results f or this EDT procedure are i n the results section. DIFFERENTIAL, STAT 03/31/2018 5:38 PM Results for this AUTOMATED EDT procedure are i n the results section. CBC (WITH DIFF) STAT 03/31/2018 5:38 PM EDT TSH STAT 03/31/2018 5:38 PM Results f or this EDT procedure are i n the results section. MAGNESIUM STAT 03/31/2018 5:38 PM Results f or this EDT procedure are i n the results section. BASIC METABOLIC PANEL STAT 03/31/2018 5:38 PM Results for this (NON-FASTING) EDT procedure are in the results section. EKG 12-LEAD STAT 03/31/2018 4:11 PM Tachycardia Results f or this EDT procedure are i n the results section. HEMOGRAM Routine 03/31/2018 3:37 AM Results f or this EDT procedure are i n the results section. DIFFERENTIAL, Routine 03/31/2018 3:37 AM Results for this AUTOMATED EDT procedure are i n the results section. CBC (WITH DIFF) Routine 03/31/2018 3:37 AM EDT MAGNESIUM Routine 03/31/2018 3:37 AM Results f or this EDT procedure are i n the results section. BASIC METABOLIC PANEL Routine 03/31/2018 3:37 AM Results for this (NON-FASTING) EDT procedure are in the results section. SPECIMEN TO PATHOLOGY Routine 03/30/2018 11:54 Re sults for this AM EDT procedure are i n the results section. SPECIMEN TO PATHOLOGY STAT 03/30/2018 11:09 Re sults for this AM EDT procedure are i n the results section. NON-FRUIT WORKER FINAL REPORT Routine 03/30/2018 10:49 Res ults for this AM EDT procedure are i n the results section. CYTOPATHOLOGY Routine 03/30/2018 10:49 Results fo r this NON-GYNECOLOGICAL AM EDT procedure are in the results section. SURGICAL PATHOLOGY Routine 03/30/2018 10:46 Resul ts for this REPORT AM EDT procedure are i n the results section. SPECIMEN TO PATHOLOGY STAT 03/30/2018 10:46 Re sults for this AM EDT procedure are i n the results section. @SALPINGO-OOPHORECTOMY 03/30/2018 9:54 AM OVARIAN MASS , UNILATERAL OR AXEL EDT (WRVU 12.16) @EXPLORATORY 03/30/2018 9:54 AM OVARIAN MASS LAPAROTOMY, EDT WITH/WITHOUT BIOPSY(S) (WRVU 12.54) XR FLUORO NO RAD <1HR Routine 03/30/2018 9:28 AM Results for this - OR USE EDT procedure are i n the results section. documented in this encounter Results SCAN DOC: INSTITUTIONAL COMMODITY ANALYST (04/04/2018 12:00 AM EDT) Narrative 04/04/2018 12:00 AM EDT This result has an attachment that is no t available. Ordered by an unspecified provider. Scanning Provider MEDIA MGR SCAN EXT ORDR/RSLT Vancomycin, trough (04/02/2018 11:56 AM EDT) P athologist Signature Vanc Trough 19.1 mg/L [facility] Comment: Therapeutic range for complicated infect ions such as bacteremia, endocarditis, osteomyelitis, meningitis, and hospital- acquired pneumonia caused by S. aureus: 15-20 mg/L Therapeutic range for other indications: 10-15 mg/L Toxic: >20 mg/L Reference: Vancomycin Therapeutic Monitoring: Anna magdaleno and Recommendations from the ASHP, IDSA and SIDP Task Force. ??Am J Health- Syst Pharm. 2009; 66:82-98 Specimen Anatomical Collection Method Collection Time Receive d Time (Source) Location / / Volume Laterality Blood specimen 04/02/2018 11:56 8 (specimen) AM EDT 12:00 PM EDT Resulting Agency Comment Spec In Lab Nohemy Van MD CHEMISTRY ORDERABLES Performing Organization Address City/State/[place] [address] (ABNORMAL) Differential, Automated (04/02/2018 3:16 AM EDT) [facility] Method Time Signature Neutrophils % 83.6 % [facility] Neutr Abs (ANC) 7.19 (H) 1.70 - [facility] 6.10 [facility] x10(3)/[facility] LABORATORY Lymphocytes % 11.0 % [facility] Lymphocytes Abs 1.0 0.9 - 3.2 [facility] x10(3)/[facility] LABORATORY Monocytes % 3.1 % [facility] Monocyte Abs 0.3 0.3 - 0.9 [facility] x10(3)/[facility] LABORATORY Eosinophils % 1.5 % [facility] Eosinophils Abs 0.1 0.0 - 0.4 [facility] x10(3)/[facility] LABORATORY Basophils % 0.3 % [facility] Basophils Abs 0.0 0.0 - 0.1 [facility] x10(3)/[facility] LABORATORY Immature Gran % 0.50 % [facility] Comment: Immature granulocytes(IG's)percentage an d absolute count will include metamyelocytes, myelocytes, and promyelo cytes. Blood smears from CBCs yielding IG's will be scanned manually for concor dance. If this scan disagrees with the automated IG or if promyelocytes are not ed, a manual differential will be performed. Nahed Gran Abs 0.04 0.00 - 0.04 x10(3)/[facility] LABORATORY Specimen Anatomical Collection Method Collection Time Receive d Time (Source) Location / / Volume Laterality Blood specimen 04/02/2018 3:16 AM 018 3:35 (specimen) EDT AM EDT Resulting Agency Comment Spec In Lab Akila Gregorio MD HEMATOLOGY ORDERABLES Performing Organization Address City/State/[place] [address] (ABNORMAL) Hemogram (04/02/2018 3:16 AM EDT) Analysis Performed At Patho logist Time Signature WBC 8.6 4.0 - 9.5 [facility] LABORATORY RBC 3.97 (L) 4.00 - [place] 5.21 [facility] x10(6)/[facility] LABORATORY Hemoglobin 10.1 (L) 11.7 - [facility] 15.[facility] gm/dL [facility] Hematocrit 32.3 (L) 35.7 - [facility] 45.8 % [facility] MCV 81.4 (L) 82.6 - [facility] 94.4 [facility] LABORATORY MCH 25.4 (L) 27.1 - [facility] LUIS 32.0 pg [facility] MCHC 31.3 (L) 31.7 - [facility] 35.0 gm/dL [facility] Platelets 263 145 - 357 [facility] x10(3)/[facility] LABORATORY RDWSD 47.4 (H) 37.0 - [facility] LUIS 46.0 [facility] LABORATORY RDWCV 15.9 (H) 11.5 - [facility]IS 14.1 % [facility] MPV 10.4 7.6 - 12.9 [facility] LABORATORY nRBC % Auto 0.0 % [facility] nRBC Abs Auto 0.000 0.000 - [place] 0.000 [facility] x10(3)/[facility] LABORATORY Specimen Anatomical Collection Method Collection Time Receive d Time (Source) Location / / Volume Laterality Blood specimen 04/02/2018 3:16 AM 018 3:35 (specimen) EDT AM EDT Resulting Agency Comment Spec In Lab Akila Gregorio MD HEMATOLOGY ORDERABLES Performing Organization Address City/State/[place] [address] [facility] [address] Urine culture Clean Catch Urine (04/01/2018 12:36 PM EDT) [facility] AppTrigger Method Time Signature Urine Culture No growth [facility] (Less than [facility] 1,000 [facility] cfu/ml). LABORATORY Specimen Anatomical Collection Method Collection Time Receive d Time (Source) Location / / Volume Laterality First stream 04/01/2018 12:36 04/01/2018 1:14 urine specimen PM EDT PM EDT (specimen) Resulting Agency Comment Spec In Lab Nohemy Van MD MICROBIOLOGY - GENERAL ORDER CLAU Performing Organization Address City/[facility]/ZIP Code Phon e Number [address] Urine Hold (04/01/2018 12:35 PM EDT) P athologist Signature Urine Hold Sample in [facility]. [facility] Specimen Anatomical Collection Method Collection Time Receive d Time (Source) Location / / Volume Laterality Urine specimen Urine / Unknown 04/01/2018 12:35 2017 (specimen) PM EDT 12:50 PM EDT Phylicia Tejada MD URINE ORDERABLES Performing Organization Address City/[facility]/[place] [address] (ABNORMAL) Urinalysis without microscopic (04/01/2018 12:35 PM EDT) [facility] Method Time Signature Glucose UA Negative Negative [facility] mg/dL [facility] Protein UA Negative Negative [facility] mg/dL [facility] Bilirubin UA Negative Negative [facility] mg/dL [facility] Comment: Clinical correlation required for positi ve Urine Bilirubin results as false positive may occur with some drugs and d rug related products. If a false positive is suspected a serum total bili silverio should be considered if clinically indicated. Urobilinogen UA Normal Normal mg/dL [facility] pH UA 5.0 5.0 - 8.0 [facility] Blood UA Large (A) Negative mg/dL [facility] Ketones UA Negative Negative mg/dL [facility] Nitrite UA Negative Negative [facility] Leukocytes UA Negative Negative [facility] LABORATORY Appearance UA Hazy (A) Clear [facility] LABORATORY Spec Cadott UA 1.019 1.002 - 1.030 [facility] Color UA Yellow Yellow [facility] Specimen Anatomical Collection Method Collection Time Receive d Time (Source) Location / / Volume Laterality Urine specimen 04/01/2018 12:35 8 (specimen) PM EDT 12:49 PM EDT Resulting Agency Comment Spec In Lab Nohemy Van MD URINE ORDERABLES Performing Organization Address City/State/[place] [address] Abdomen & Pelvis w Contrast (04/01/2018 12:23 PM EDT) Anatomical Region Laterality Modality Abdomen, Pelvis Computed Tomography Specimen (Source) Anatomical Location Collection Method / Collectio n Time Received Time / Laterality Volume Impressions 04/01/2018 1:19 PM EDT 1. ??Free intraperitoneal fluid and air. Although this may be postsurgical, cannot exclude bowel perforation. 2. ??Multiple distended loops of small b owel seen in upper abdomen; cannot exclude partial small bowel obstruction. Narrative 04/01/2018 1:19 PM EDT EXAMINATION: ??CT ABDOMEN AND PELVIS W CONTRAST CLINICAL HISTORY: ??patient is getting C T PE protocol for sustained tachycardia, please add abdomen/pelvis follow through TECHNIQUE: Helical CT of the abdomen and pelvis was performed following the intravenous administration of contrast. 89 cc of Omnipaque 350 was given. Oral contrast was administered. COMPARISON: ??12/31/2017 FINDINGS: Lower chest: Trace bilateral pleural eff usions with bibasilar focal atelectasis. Liver: Stable, well delineated, 14 mm lo w-density lesion inferior RIGHT lobe, likely a small cyst. Bile ducts: No biliary ductal dilatation . Gallbladder: No calcified gallstones. No rmal caliber wall. Pancreas: Normal attenuation without gregor porsche dilatation. Spleen: Normal. Adrenals: Normal. Kidneys: Normal. Symmetric renal enhance ment. No renal collecting system obstruction bilaterally Vasculature: No aneurysm. Lymph Nodes: No enlarged lymph nodes. Bowel: Multiple distended loops of small bowel seen primarily in the mid to upper abdomen. Peritoneum and mesentery: Free intraperi toneal fluid and air. This is new, however, 2 days prior, the patient had a TSH/BSO. Abdominal wall: Normal. Urinary Bladder: Limited evaluation. Daniel ssly normal Reproductive organs: Post LEFT salpingo- oophorectomy Osseous structures: No suspicious lesion s. Procedure Note Tolu Perez MD - 04/01/2018Form atting of this note might be different from the original. EXAMINATION: CT ABDOMEN AND PELVIS W CON TRAST CLINICAL HISTORY: patient is getting CT PE protocol for sustained tachycardia, please add abdomen/pelvis follow through TECHNIQUE: Helical CT of the abdomen and pelvis was performed following the intravenous administration of contrast. 89 cc of Omnipaque 350 was given. Oral contrast was administered. COMPARISON: 12/31/2017 FINDINGS: Lower chest: Trace bilateral pleural eff usions with bibasilar focal atelectasis. Liver: Stable, well delineated, 14 mm lo w-density lesion inferior RIGHT lobe, likely a small cyst. Bile ducts: No biliary ductal dilatation . Gallbladder: No calcified gallstones. No rmal caliber wall. Pancreas: Normal attenuation without gregor porsche dilatation. Spleen: Normal. Adrenals: Normal. Kidneys: Normal. Symmetric renal enhance ment. No renal collecting system obstruction bilaterally Vasculature: No aneurysm. Lymph Nodes: No enlarged lymph nodes. Bowel: Multiple distended loops of small bowel seen primarily in the mid to upper abdomen. Peritoneum and mesentery: Free intraperi toneal fluid and air. This is new, however, 2 days prior, the patient had a TSH/BSO. Abdominal wall: Normal. Urinary Bladder: Limited evaluation. Daniel ssly normal Reproductive organs: Post LEFT salpingo- oophorectomy Osseous structures: No suspicious lesion s. IMPRESSION 1. Free intraperitoneal fluid and air. A lthough this may be postsurgical, cannot exclude bowel perforation. 2. Multiple distended loops of small bow el seen in upper abdomen; cannot exclude partial small bowel obstruction. Nohemy Van MD IMG CT ORDERABLES CTA Chest for Pulmonary Embolus w Contrast (04/01/2018 12:23 PM EDT) Anatomical Region Laterality Modality Chest Computed Tomography Specimen (Source) Anatomical Location Collection Method / Collectio n Time Received Time / Laterality Volume Impressions 04/01/2018 1:06 PM EDT No evidence of acute pulmonary arterial embolism. Mild elevation of the right hemidiaphrag m. Mild geographic hazy ground glass opacit ies in the lungs are most likely just due to acquisition of the images in part ial expiration. If there is clinical concern for air trapping due to underlyi ng infectious or inflammatory/reactive airway disease, a follow-up high-resolut ion CT with inspiration and expiration imaging may be considered after the darrius ent's clinical status has improved. Free intra-abdominal air may be within t he expected limits after surgery 2 days ago, however, please also refer to the s eparately dictated report of the abdomen and pelvis. Narrative 04/01/2018 1:06 PM EDT EXAMINATION: CTA CHEST PULMONARY EMBOLISM W CONTRAST CLINICAL HISTORY: sustained tachycardia, please do an abdomen/pelvis follow through TECHNIQUE: Helical CT angiogram of the c hest was performed after intravenous contrast administration of 89cc of Omnip aque 350. ??Thin-section reconstructions as well as coronal and sagittal MIP refo rmatted images were generated to aid in evaluation. COMPARISON: None FINDINGS: Pulmonary arteries: Normal caliber. No i ntraluminal filling defects. Other cardiovascular structures: Normal heart size. No aneurysm or stenosis. Lungs and airways:? CT images were acqui red in partial expiration, which likely accounts for the mild geographic hazy op acities. Mild linear atelectasis in the right lower lobe. Mild elevation of the right hemidiaphragm. Bilateral small pleural effusion. Minimal adjacent depen dent atelectasis. Mediastinum and hilar structures: No abn ormal enlargement of lymph nodes within the chest. Limited views of the upper abdomen: Note is made of a prominent amount of free intra-abdominal air and some ascites. Ba sed on eD-H patient had abdominal surgery on March 30, 2018. Skeletal structures: No aggressive osseo us lesion. Procedure Note Darling Rowley MD - 2017 EXAMINATION: CTA CHEST PULMONARY EMBOLIS M W CONTRAST CLINICAL HISTORY: sustained tachycardia, please do an abdomen/pelvis follow through TECHNIQUE: Helical CT angiogram of the c hest was performed after intravenous contrast administration of 89cc of Omnip aque 350. Thin-section reconstructions as well as coronal and sagittal MIP refo rmatted images were generated to aid in evaluation. COMPARISON: None FINDINGS: Pulmonary arteries: Normal caliber. No i ntraluminal filling defects. Other cardiovascular structures: Normal heart size. No aneurysm or stenosis. Lungs and airways:? CT images were acqui red in partial expiration, which likely accounts for the mild geographic hazy op acities. Mild linear atelectasis in the right lower lobe. Mild elevation of the right hemidiaphragm. Bilateral small pleural effusion. Minimal adjacent depen dent atelectasis. Mediastinum and hilar structures: No abn ormal enlargement of lymph nodes within the chest. Limited views of the upper abdomen: Note is made of a prominent amount of free intra-abdominal air and some ascites. Ba sed on eD-H patient had abdominal surgery on March 30, 2018. Skeletal structures: No aggressive osseo us lesion. IMPRESSION No evidence of acute pulmonary arterial embolism. Mild elevation of the right hemidiaphrag m. Mild geographic hazy ground glass opacit ies in the lungs are most likely just due to acquisition of the images in part ial expiration. If there is clinical concern for air trapping due to underlyi ng infectious or inflammatory/reactive airway disease, a follow-up high-resolut ion CT with inspiration and expiration imaging may be considered after the darrius ent's clinical status has improved. Free intra-abdominal air may be within t he expected limits after surgery 2 days ago, however, please also refer to the s eparately dictated report of the abdomen and pelvis. Nohemy Van MD [facility] [place] ORDERABLES (ABNORMAL) Differential, Automated (04/01/2018 11:12 AM EDT) [facility] Method Time Signature Neutrophils % 87.9 % [facility] Neutr Abs (ANC) 5.05 1.70 - [facility] 6.10 [facility] x10(3)/[facility] LABORATORY Lymphocytes % 8.7 % [facility] Lymphocytes Abs 0.5 (L) 0.9 - 3.2 [facility] x10(3)/[facility] LABORATORY Monocytes % 2.8 % [facility] Monocyte Abs 0.2 (L) 0.3 - 0.9 [facility] x10(3)/[facility] LABORATORY Eosinophils % 0.2 % [facility] Eosinophils Abs 0.0 0.0 - 0.4 [facility] x10(3)/[facility] LABORATORY Basophils % 0.2 % [facility] Basophils Abs 0.0 0.0 - 0.1 [facility] x10(3)/[facility] LABORATORY Immature Gran % 0.20 % [facility] Comment: Immature granulocytes(IG's)percentage an d absolute count will include metamyelocytes, myelocytes, and promyelo cytes. Blood smears from CBCs yielding IG's will be scanned manually for concor dance. If this scan disagrees with the automated IG or if promyelocytes are not ed, a manual differential will be performed. Nahed Gran Abs 0.01 0.00 - 0.04 x10(3)/[facility] LABORATORY Specimen Anatomical Collection Method Collection Time Receive d Time (Source) Location / / Volume Laterality Blood specimen 04/01/2018 11:12 8 (specimen) AM EDT 11:28 AM EDT Resulting Agency Comment Spec In Lab Zakia KEITH HEMATOLOGY ORDERABLES Performing Organization Address City/State/[place] [address] (ABNORMAL) Hemogram (04/01/2018 11:12 AM EDT) Analysis Performed At Patho logist Time Signature WBC 5.7 4.0 - 9.5 [facility] x10(3)/[facility] LABORATORY RBC 4.34 4.00 - [facility] 5.21 [facility] x10(6)/[facility] LABORATORY Hemoglobin 11.4 (L) 11.7 - [facility] 15.5 gm/dL [facility] Hematocrit 35.1 (L) 35.7 - [facility] 45.8 % [facility] MCV 80.9 (L) 82.6 - [place] 94.4 [facility] LABORATORY MCH 26.3 (L) 27.1 - [place] 32.0 pg [facility] MCHC 32.5 31.7 - [place] [place] 35.0 gm/dL [facility] Platelets 267 145 - 357 [place] x10(3)/[facility] LABORATORY RDWSD 46.9 (H) 37.0 - [place] 46.0 [facility] LABORATORY RDWCV 15.9 (H) 11.5 - [place] 14.1 % [facility] MPV 10.7 7.6 - 12.9 [place] [facility] LABORATORY nRBC % Auto 0.0 % [facility] nRBC Abs Auto 0.000 0.000 - [place] 0.000 [facility] x10(3)/[facility] LABORATORY Specimen Anatomical Collection Method Collection Time Receive d Time (Source) Location / / Volume Laterality Blood specimen 04/01/2018 11:12 8 (specimen) AM EDT 11:28 AM EDT Resulting Agency Comment Spec In Lab Zakia KEITH HEMATOLOGY ORDERABLES Performing Organization Address City/State/[place] [address] Magnesium (04/01/2018 8:18 AM EDT) P athologist Signature Magnesium 0.71 0.69 - 1.07 [facility] mmol/L [facility] Specimen Anatomical Collection Method Collection Time Receive d Time (Source) Location / / Volume Laterality Blood specimen 04/01/2018 8:18 AM 018 8:39 (specimen) EDT AM EDT Resulting Agency Comment Spec In Lab Nohemy Van MD CHEMISTRY ORDERABLES Performing Organization Address City/State/[place] [address] (ABNORMAL) Basic Metabolic Panel (non-fasting) (04/01/2018 8:18 AM EDT) athologist Signature Glucose Lvl 124 65 - 199 [facility] mg/dL [facility] Comment: Diabetes: >=200 mg/dL plus symp toms BUN 9 8 - 18 mg/dL [facility] Creatinine 0.85 0.70 - 1.20 mg/dL [facility] Sodium 138 135 - 145 mmol/L [facility] Potassium 3.7 3.5 - 5.0 mmol/L [facility] Comment: Please note: ??Patients with WBC >100,00 0 may have falsely elevated Potassium levels. ??For accurate Potassium quantif ication in these patients send serum separator tube (gold top) for subsequent determinations. ??Contact the Clinical Chemistry Laboratory if there are any qu estions. Chloride 104 98 - 107 mmol/L [facility] CO2 20 (L) 22 - 31 mmol/L [facility] Anion Gap 14 5 - 15 mmol/L [facility]ORY Calcium 8.1 (L) 8.5 - 10.5 mg/dL [facility] Estimated GFR 85 >=60 mL/min/1.73 m?? [facility] Comment: The eGFR was calculated using the CKD-EP I equation. As with all creatinine based estimates of kidney function, eGFR values calculated with the CKD-EPI equation are not accurate in patients wi th acute kidney failure, extremes of body mass or the acutely ill. [email or web address] [email or web address] [place] eGFR 98 >=60 mL/min/1.73 m?? [facility] Comment: The eGFR was calculated using the CKD-EP I equation. As with all creatinine based estimates of kidney function, eGFR values calculated with the CKD-EPI equation are not accurate in patients wi th acute kidney failure, extremes of body mass or the acutely ill. [email or web address] [email or web address] [place] Specimen Anatomical Collection Method Collection Time Receive d Time (Source) Location / / Volume Laterality Blood specimen 04/01/2018 8:18 AM 018 8:39 (specimen) EDT AM EDT Resulting Agency Comment Spec In Lab Nohemy Van MD CHEMISTRY ORDERABLES Performing Organization Address City/State/[place] [address] XR Chest PA or AP 1 view (03/31/2018 9:10 PM EDT) Anatomical Region Laterality Modality Chest N/A Digital Radiography Specimen (Source) Anatomical Location Collection Method / Collectio n Time Received Time / Laterality Volume Impressions 03/31/2018 9:56 PM EDT Large amount of intra-abdominal free air, correlate with recent surgical history or concern of potential hollow viscus in jury. Narrative 03/31/2018 9:56 PM EDT EXAMINATION: XR CHEST PA OR AP 1 VIEW CLINICAL HISTORY: post op febrile TECHNIQUE: Frontal chest COMPARISON: None FINDINGS: Mild streaky basilar subsegmental atelec tasis. No confluent airspace opacity, pleural effusion, or pneumothorax defini tively identified. Nonenlarged cardiopericardial silhouette. Cardiac me diastinal contours difficult to assess given patient rotation. Epidural cathete r tip projects over the midthoracic spine. Large amount of pneumoperitoneum. Procedure Note Max Love MD - 03/31/2018 EXAMINATION: XR CHEST PA OR AP 1 VIEW CLINICAL HISTORY: post op febrile TECHNIQUE: Frontal chest COMPARISON: None FINDINGS: Mild streaky basilar subsegmental atelec tasis. No confluent airspace opacity, pleural effusion, or pneumothorax defini tively identified. Nonenlarged cardiopericardial silhouette. Cardiac me diastinal contours difficult to assess given patient rotation. Epidural cathete r tip projects over the midthoracic spine. Large amount of pneumoperitoneum. IMPRESSION Large amount of intra-abdominal free air , correlate with recent surgical history or concern of potential hollow viscus in jury. Nohemy Van MD IMG DX ORDERABLES (ABNORMAL) Differential, Automated (03/31/2018 8:57 PM EDT) [facility] Method Time Signature Neutrophils % 88.1 % [facility] Neutr Abs (ANC) 6.87 (H) 1.70 - [facility] 6.10 [facility] x10(3)/[facility] L LABORATORY Lymphocytes % 7.3 % [facility] Lymphocytes Abs 0.6 (L) 0.9 - 3.2 [facility] x10(3)/[facility] LABORATORY Monocytes % 3.8 % [facility] Monocyte Abs 0.3 0.3 - 0.9 [facility] x10(3)/[facility] LABORATORY Eosinophils % 0.1 % [facility] Eosinophils Abs 0.0 0.0 - 0.4 [facility] x10(3)/[facility] LABORATORY Basophils % 0.3 % [facility] Basophils Abs 0.0 0.0 - 0.1 [facility] x10(3)/[facility] LABORATORY Immature Gran % 0.40 % [facility] Comment: Immature granulocytes(IG's)percentage an d absolute count will include metamyelocytes, myelocytes, and promyelo cytes. Blood smears from CBCs yielding IG's will be scanned manually for concor dance. If this scan disagrees with the automated IG or if promyelocytes are not ed, a manual differential will be performed. Nahed Gran Abs 0.03 0.00 - 0.04 x10(3)/[facility] LABORATORY Specimen Anatomical Collection Method Collection Time Receive d Time (Source) Location / / Volume Laterality Blood specimen 03/31/2018 8:57 PM 018 9:03 (specimen) EDT PM EDT Resulting Agency Comment Spec In Lab Phylicia Tejada MD HEMATOLOGY ORDERABLES Performing Organization Address City/State/[place] [address] (ABNORMAL) Hemogram (03/31/2018 8:57 PM EDT) Analysis Performed At Patho logist Time Signature WBC 7.8 4.0 - 9.5 [facility] x10(3)/[facility] LABORATORY RBC 4.31 4.00 - [facility] 5.21 [facility] x10(6)/[facility] LABORATORY Hemoglobin 11.1 (L) 11.7 - [place] [place] 15.5 gm/dL [facility] Hematocrit 34.6 (L) 35.7 - [place] 45.8 % [facility] MCV 80.3 (L) 82.6 - [place] 94.4 [facility] LABORATORY MCH 25.8 (L) 27.1 - [place] 32.0 pg [facility] MCHC 32.1 31.7 - [place] 35.0 gm/dL [facility] Platelets 239 145 - 357 [facility] x10(3)/[facility] LABORATORY RDWSD 45.5 37.0 - [place] 46.0 [facility] LABORATORY RDWCV 15.5 (H) 11.5 - [facility] 14.1 % [facility] MPV 10.7 7.6 - 12.9 [facility] LABORATORY nRBC % Auto 0.0 % [facility] nRBC Abs Auto 0.000 0.000 - [place] 0.000 [facility] x10(3)/[facility] LABORATORY Specimen Anatomical Collection Method Collection Time Receive d Time (Source) Location / / Volume Laterality Blood specimen 03/31/2018 8:57 PM 018 9:03 (specimen) EDT PM EDT Resulting Agency Comment Spec In Lab Phylicia Tejada MD HEMATOLOGY ORDERABLES Performing Organization Address City/State/ZIP Code [place] [address] Blood culture (03/31/2018 8:57 PM EDT) [facility] gist Method Time Signature Blood Culture No growth [place] SM[place] at 5 days. [facility] Specimen Anatomical Collection Method Collection Time Receive d Time (Source) Location / / Volume Laterality Blood specimen 03/31/2018 8:57 PM 018 (specimen) EDT 10:31 PM EDT Comment: LH.BRDRAW BLOOD CULTURES BEFORE ADMINISTERING ANTIBIOTICS Resulting Agency Comment Spec In Lab Nohemy Van MD MICROBIOLOGY - BLOOD ORDERAB LES Performing Organization Address City/State/ZIP Code Phon e Number [address] Lactate, whole blood, send to lab (Leb/CGP) (03/31/2018 8:57 PM EDT) P athologist Signature Lactate WB 1.4 0.5 - 2.2 [facility] mmol/L [facility] Specimen Anatomical Collection Method Collection Time Receive d Time (Source) Location / / Volume Laterality Blood specimen 03/31/2018 8:57 PM 018 9:03 (specimen) EDT PM EDT Resulting Agency Comment Spec In Lab Nohemy Van MD CHEMISTRY ORDERABLES Performing Organization Address City/[facility]/ZIP Code Phon e Number [address] Blood culture (03/31/2018 8:55 PM EDT) [facility] Method Time Signature Blood Culture No growth [facility] at 5 days. [facility] Specimen Anatomical Collection Method Collection Time Receive d Time (Source) Location / / Volume Laterality Blood specimen 03/31/2018 8:55 PM 018 (specimen) EDT 10:42 PM EDT Comment: LFA.BRDRAW BLOOD CULTURES BEFOR E ADMINISTERING ANTIBIOTICS Resulting Agency Comment Spec In Lab Nohemy Van MD MICROBIOLOGY - BLOOD ORDERAB LES Performing Organization Address City/State/ZIP Code Phon e Number [address] Differential, Manual (03/31/2018 5:38 PM EDT) [facility] gist Method Time Signature Neutrophil % 83 % [facility] Lymphocyte % 12 % [facility] Monocyte % 3 % [facility] Eosinophil % 1 % [facility] Basophil % 0 % [facility] Metamyelo % 1 % [facility] Tot Diff Cell Ct 100 [facility] Plat Estimate Normal [facility] RBC Morphology Abnormal [facility] Hypochromia Moderate [facility] Specimen Anatomical Collection Method Collection Time Receive d Time (Source) Location / / Volume Laterality Blood specimen Venous Draw / 03/31/2018 5:38 PM 2017 5:48 (specimen) Unknown EDT PM EDT Resulting Agency Comment Spec In Lab Darnell Elaine MD HEMATOLOGY ORDERABLES Performing Organization Address City/[facility]/[place] [address] TSH (03/31/2018 5:38 PM EDT) athologist Signature TSH 1.19 0.27 - 4.20 [facility] mlU/ML [facility] Specimen Anatomical Collection Method Collection Time Receive d Time (Source) Location / / Volume Laterality Blood specimen Venous Draw / 03/31/2018 5:38 PM 2017 5:48 (specimen) Unknown EDT PM EDT Resulting Agency Comment Spec In Lab Phylicia Tejada MD CHEMISTRY ORDERABLES Performing Organization Address City/[facility]/[place] [address] (ABNORMAL) Magnesium (03/31/2018 5:38 PM EDT) athologist Signature Magnesium 0.62 (L) 0.69 - 1.07 [facility] mmol/L [facility] Specimen Anatomical Collection Method Collection Time Receive d Time (Source) Location / / Volume Laterality Blood specimen 03/31/2018 5:38 PM 018 5:48 (specimen) EDT PM EDT Resulting Agency Comment Spec In Lab Nohemy Van MD CHEMISTRY ORDERABLES Performing Organization Address City/[facility]/[place] [address] (ABNORMAL) Basic Metabolic Panel (non-fasting) (03/31/2018 5:38 PM EDT) athologist Signature Glucose Lvl 127 65 - 199 [facility] mg/dL [facility] Comment: Diabetes: >=200 mg/dL plus symp toms BUN 11 8 - 18 mg/dL [facility] Creatinine 0.77 0.70 - 1.20 mg/dL [facility] Sodium 137 135 - 145 mmol/L [facility] Potassium 3.3 (L) 3.5 - 5.0 mmol/L [facility] Comment: Please note: ??Patients with WBC >100,00 0 may have falsely elevated Potassium levels. ??For accurate Potassium quantif ication in these patients send serum separator tube (gold top) for subsequent determinations. ??Contact the Clinical Chemistry Laboratory if there are any qu estions. Chloride 102 98 - 107 mmol/L [facility] CO2 23 22 - 31 mmol/L [facility] Anion Gap 12 5 - 15 mmol/L [facility] Calcium 8.0 (L) 8.5 - 10.5 mg/dL [facility] Estimated GFR 95 >=60 mL/min/1.73 m?? [facility] Comment: The eGFR was calculated using the CKD-EP I equation. As with all creatinine based estimates of kidney function, eGFR values calculated with the CKD-EPI equation are not accurate in patients wi th acute kidney failure, extremes of body mass or the acutely ill. [email or web address] [email or web address] [place]nk[place] eGFR 110 >=60 mL/min/1.73 m?? [facility] Comment: The eGFR was calculated using the CKD-EP I equation. As with all creatinine based estimates of kidney function, eGFR values calculated with the CKD-EPI equation are not accurate in patients wi th acute kidney failure, extremes of body mass or the acutely ill. [email or web address] [email or web address]/[facility] [place]nk[place] Specimen Anatomical Collection Method Collection Time Receive d Time (Source) Location / / Volume Laterality Blood specimen 03/31/2018 5:38 PM 018 5:48 (specimen) EDT PM EDT Resulting Agency Comment Spec In Lab Nohemy Van MD CHEMISTRY ORDERABLES Performing Organization Address City/State/[place] [address] (ABNORMAL) Differential, Automated (03/31/2018 5:38 PM EDT) Patholo gist Method Time Signature Neutrophils % 88.7 % [facility] Neutr Abs (ANC) 4.88 1.70 - [place] 6.10 [facility] x10(3)/[facility] LABORATORY Lymphocytes % 7.5 % [facility] Lymphocytes Abs 0.4 (L) 0.9 - 3.2 [facility] x10(3)/[facility] LABORATORY Monocytes % 3.6 % [facility] Monocyte Abs 0.2 (L) 0.3 - 0.9 [facility] x10(3)/[facility] LABORATORY Eosinophils % 0.0 % [facility] Eosinophils Abs 0.0 0.0 - 0.4 [facility] x10(3)/[facility] LABORATORY Basophils % 0.2 % [facility] Basophils Abs 0.0 0.0 - 0.1 [facility] x10(3)/[facility] LABORATORY Specimen Anatomical Collection Method Collection Time Receive d Time (Source) Location / / Volume Laterality Blood specimen 03/31/2018 5:38 PM 018 5:48 (specimen) EDT PM EDT Resulting Agency Comment Spec In Lab Darnell Elaine MD HEMATOLOGY ORDERABLES Performing Organization Address City/State/[place] [address] (ABNORMAL) Hemogram (03/31/2018 5:38 PM EDT) P athologist Signature WBC 5.5 4.0 - 9.5 [facility] x10(3)/[facility] LABORATORY RBC 4.23 4.00 - [facility] 5.21 [facility] x10(6)/[facility] LABORATORY Hemoglobin 11.1 (L) 11.7 - [facility] 15.5 gm/dL [facility] LABOR[facility]ORY Hematocrit 34.3 (L) 35.7 - [facility] 45.[facility] % [facility] MCV 81.1 (L) 82.6 - [facility] 94.4 [facility] LABORATORY MCH 26.2 (L) 27.1 - [place] SMITH 32.0 pg [facility] LABORATORY MCHC 32.4 31.7 - [place] SMITH 35.0 gm/dL [facility] Platelets 209 145 - 357 [place] x10(3)/[facility] RDWSD 46.0 37.0 - [place] RAMLUIS 46.0 [facility] RDWCV 15.9 (H) 11.5 - [place] 14.1 % [facility] MPV 11.4 7.6 - 12.9 [facility] LABORATORY Specimen Anatomical Collection Method Collection Time Receive d Time (Source) Location / / Volume Laterality Blood specimen 03/31/2018 5:38 PM 018 5:48 (specimen) EDT PM EDT Resulting Agency Comment Spec In Lab Darnell Elaine MD HEMATOLOGY ORDERABLES Performing Organization Address City/[facility]/[place] [address] EKG 12 Lead (03/31/2018 4:11 PM EDT) Component Value Ref Range Test Analysis Performed Pathologis t Method Time At Signature Ventricular rate 138 BPM MUSE SYSTEM Atrial Rate 138 BPM MUSE SYSTEM P-R Interval 126 ms MUSE SYSTEM QRS Duration 78 ms MUSE SYSTEM Q-T Interval 252 ms MUSE SYSTEM QTC Calculated 381 ms MUSE SYSTEM (Bezet) Calculated P Silva 28 degrees MUSE SYSTEM Calculated R Silva 2 degrees MUSE SYSTEM Calculated T Silva 20 degrees MUSE SYSTEM INTERPRETATION Sinus tachycardia MUSE SY STEM Otherwise normal ECG No previous ECGs available Confirmed by MD Yahaira, Lore ([id number]) on 04/01/2018 5:28:49 PM Specimen Anatomical Collection Method Collection Time Receive d Time (Source) Location / / Volume Laterality 03/31/2018 4:11 PM 8 5:28 EDT PM EDT Nohemy Van MD ECG ORDERABLES Performing Organization Address City/[facility]/ZIP Code Phon e Number MUSE SYSTEM (ABNORMAL) Differential, Automated (03/31/2018 3:37 AM EDT) Patholo gist Method Time Signature Neutrophils % 81.4 % [facility] Neutr Abs (ANC) 8.19 (H) 1.70 - [facility] 6.10 [facility] x10(3)/[facility] LABORATORY Lymphocytes % 11.2 % [facility] Lymphocytes Abs 1.1 0.9 - 3.2 [facility] x10(3)/[facility] LABORATORY Monocytes % 6.9 % [facility] Monocyte Abs 0.7 0.3 - 0.9 [facility] x10(3)/[facility] LABORATORY Eosinophils % 0.0 % [facility] Eosinophils Abs 0.0 0.0 - 0.4 [facility] x10(3)/[facility] LABORATORY Basophils % 0.2 % [facility] Basophils Abs 0.0 0.0 - 0.1 [facility] x10(3)/[facility] LABORATORY Immature Gran % 0.30 % [facility] Comment: Immature granulocytes(IG's)percentage an d absolute count will include metamyelocytes, myelocytes, and promyelo cytes. Blood smears from CBCs yielding IG's will be scanned manually for concor dance. If this scan disagrees with the automated IG or if promyelocytes are not ed, a manual differential will be performed. Nahed Gran Abs 0.03 0.00 - 0.04 x10(3)/[facility] LABORATORY Specimen Anatomical Collection Method Collection Time Receive d Time (Source) Location / / Volume Laterality Blood specimen 03/31/2018 3:37 AM 018 4:05 (specimen) EDT AM EDT Resulting Agency Comment Spec In Lab Akila Gregorio MD HEMATOLOGY ORDERABLES Performing Organization Address City/State/[place] [address] (ABNORMAL) Hemogram (03/31/2018 3:37 AM EDT) Analysis Performed At Patho logist Time Signature WBC 10.1 (H) 4.0 - 9.5 [facility] x10(3)/[facility] LABORATORY RBC 4.01 4.00 - [facility] 5.21 [facility] x10(6)/[facility] LABORATORY Hemoglobin 10.3 (L) 11.7 - [place] [place]IS 15.5 gm/dL [facility] LABORATORY Hematocrit 31.8 (L) 35.7 - [place] RAM[place]IS 45.8 % [facility] LABORATORY MCV 79.3 (L) 82.6 - [place] RAM[place]IS 94.4 [facility] LABORATORY MCH 25.7 (L) 27.1 - [place] RAM[place]IS 32.0 pg [facility] LABORATORY MCHC 32.4 31.7 - [place] RAM[place]IS 35.0 gm/dL [facility] LABORATORY Platelets 258 145 - 357 [place] x10(3)/[facility] LABORATORY RDWSD 44.6 37.0 - [place] RAM[place]IS 46.0 [facility] LABORATORY RDWCV 15.3 (H) 11.5 - NCIK LUIS 14.1 % [facility] LABORATORY MPV 10.5 7.6 - 12.9 [place] RAMLUIS [facility] LABORATORY nRBC % Auto 0.0 % [facility] nRBC Abs Auto 0.000 0.000 - [place] RAM[place]IS 0.000 [facility] x10(3)/[facility] LABORATORY Specimen Anatomical Collection Method Collection Time Receive d Time (Source) Location / / Volume Laterality Blood specimen 03/31/2018 3:37 AM 018 4:05 (specimen) EDT AM EDT Resulting Agency Comment Spec In Lab Akila Gregorio MD HEMATOLOGY ORDERABLES Performing Organization Address City/[facility]/[place] [address] Magnesium (03/31/2018 3:37 AM EDT) P athologist Signature Magnesium 0.71 0.69 - 1.07 [facility] LUIS mmol/L [facility] LABORATORY Specimen Anatomical Collection Method Collection Time Receive d Time (Source) Location / / Volume Laterality Blood specimen 03/31/2018 3:37 AM 018 4:05 (specimen) EDT AM EDT Resulting Agency Comment Spec In Lab Nohemy Van MD CHEMISTRY ORDERABLES Performing Organization Address City/[facility]/[place] [address] (ABNORMAL) Basic Metabolic Panel (non-fasting) (03/31/2018 3:37 AM EDT) P athologist Signature Glucose Lvl 121 65 - 199 [facility] mg/dL [facility] LABORATORY Comment: Diabetes: >=200 mg/dL plus symp toms BUN 10 8 - 18 mg/dL [facility] LABORATORY Creatinine 0.75 0.70 - 1.20 mg/dL [facility] LABORATORY Sodium 138 135 - 145 mmol/L [facility] LAB[facility] Potassium 4.1 3.5 - 5.0 mmol/L [facility] Comment: Please note: ??Patients with WBC >100,00 0 may have falsely elevated Potassium levels. ??For accurate Potassium quantif ication in these patients send serum separator tube (gold top) for subsequent determinations. ??Contact the Clinical Chemistry Laboratory if there are any qu estions. Chloride 105 98 - 107 mmol/L [facility] CO2 21 (L) 22 - 31 mmol/L [facility] Anion Gap 12 5 - 15 mmol/L [facility] LABORATORY Calcium 8.0 (L) 8.5 - 10.5 mg/dL [facility] Estimated GFR 98 >=60 mL/min/1.73 m?? [facility] Comment: The eGFR was calculated using the CKD-EP I equation. As with all creatinine based estimates of kidney function, eGFR values calculated with the CKD-EPI equation are not accurate in patients wi th acute kidney failure, extremes of body mass or the acutely ill. [email or web address] http://ActiveSec/[facility] CITYnkf eGFR 114 >=60 mL/min/1.73 m?? [facility] Comment: The eGFR was calculated using the CKD-EP I equation. As with all creatinine based estimates of kidney function, eGFR values calculated with the CKD-EPI equation are not accurate in patients wi th acute kidney failure, extremes of body mass or the acutely ill. http://[email or web address] http://ActiveSec/[facility]nk[facility] Specimen Anatomical Collection Method Collection Time Receive d Time (Source) Location / / Volume Laterality Blood specimen 03/31/2018 3:37 AM 018 4:05 (specimen) EDT AM EDT Resulting Agency Comment Spec In Lab Authorizing Provider Result Kassandra Van MD CHEMISTRY ORDERABLES Performing Organization Address [facility] [place] [address] Specimen to Pathology (03/30/2018 11:54 AM EDT) Specimen Anatomical Collection Method Collection Time Receive d Time (Source) Location / / Volume Laterality AP Specimen 03/30/2018 11:54 03/30/2018 AM EDT 11:54 AM EDT Narrative [facility] OR - 03/30/2018 11:54 AM EDT Specimen requisition ordered. ??Separate Pathology report to follow Authorizing Provider Result Kassandra Van MD PATHOLOGY/CYTOLOGY ORDERABLE S Performing Organization Address [facility]/ZIP [facility] [place] [address] Specimen to Pathology (03/30/2018 11:09 AM EDT) Specimen Anatomical Collection Method Collection Time Receive d Time (Source) Location / / Volume Laterality AP Specimen 03/30/2018 11:09 03/30/2018 AM EDT 11:09 AM EDT Narrative [facility] OR - 03/30/2018 11:09 AM EDT Specimen requisition ordered. ??Separate Pathology report to follow Authorizing Provider Result Kassandra Van MD PATHOLOGY/CYTOLOGY ORDERABLE S Performing Organization Address City/[facility] [place] [address] Non-Gis Engineer Final Report (03/30/2018 10:49 AM EDT) Component Value Ref Test Analysis Performed At [facility] Range Method Time Signature Non-Gis Engineer [id number] ? Location: 1WST; 0118; A NICK Final Report [place] The signing pathologist has (i) examined the relevant preparation(s) for the [facility] specimen(s) and (ii) rendered or confirmed the diagnosis(es) . HOSPITAL LABORATORY . ? No n-Gis Engineer Final DIAGNOSIS Atypical Electronically signed by: ??Moises Brooks MD Verified: ??04/08/2018 ?Cytopathologist Performed at: ??-[facility] Dept. of Pathology, [place], [place] DISCUSSION Ascites: A few clusters of a typical epithelioid cells are noted - favor reactive mesothelial cells. Dr. Elaine has reviewed this case and concurs with the olga gnosis. --- Immunohistochemistry Studies --- Interpretation: ?Immunohistochemical assays were performed (on paraffin-embedded cell block sections fixed in 10% neutr al buffered formalin for 6-72 hours) using the polymer technique with appropriate controls. The ??sections are studied for calretinin, MOC31, and PAX8. The above-mentioned atypical cells are i mmunoreactive for calretinin, supporting the diagnosis. The result of the MOC31 stain is equivocal. Occasional cells stain positively for PAX8. These immunohistochemical st udies provide ancillary information and are used only in conjunction with standard diagnostic procedures. CLINICAL INFORMATION Specimen Source : Ascites Pertinent Clinical Data and Significant Therapy: Ovarian mass Clinical Impression : Ascites Pertinent Radiologic Findings ??: (not provided) Gross Description: Received ??fresh, approximat aroldo 30 mL total volume of ?? cloudy, red fluid, with light flecks. Total Preparation: Liquid-Based Prep 1; Cell Block 1. Specimen (Source) Anatomical Collection Method Collection Time Re ceived Time Location / / Volume Laterality 03/30/2018 10:49 AM EDT Nohemy Van MD PATHOLOGY/CYTOLOGY ORDERABLE S Performing Organization Address City/State/[place] [address] [facility] [address] Cytopathology Non-Gynecological (03/30/2018 10:49 AM EDT) Specimen Anatomical Collection Method Collection Time Receive d Time (Source) Location / / Volume Laterality AP Specimen 03/30/2018 10:49 03/30/2018 AM EDT 11:21 AM EDT Narrative [facility] - 03/30/2018 11:21 AM EDT Specimen requisition ordered. ??Separate Pathology report to follow Resulting Agency Comment Spec In Lab Nohemy Van MD PATHOLOGY/CYTOLOGY ORDERABLE S Performing Organization Address City/State/ZIP Code [place] [address] Surgical Pathology Report (03/30/2018 10:46 AM EDT) Component Value Ref Test Analysis Performed At [facility] Range Method Time Signature Surgical [id number] ? Location: 1WST; 0118; A NICK Pathology LUIS Report The signing pathologist has (i) examined the relevant preparation(s) for the [facility] specimen(s) and (ii) rendered or confirmed the diagnosis(es) . HOSPITAL LABORATORY . ?Surgic al Pathology DIAGNOSIS A - Right fallopian tube and ovary (salpingo-oophorectomy): ?1. 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 ?2. Surface of ovary: Not involved by tumor. ?3. Benign fallopian tube. B - Omentum: ?1. Organizing fibrous scar. ?2. No evidence of malignancy. C - Left fallopian tube and ovary (salpingo-oophorectomy): ?Benign fallopian tube and ovary. SYNOPTIC REPORT Specimen ? Procedure: ??Bilateral salpingo-oophorectomy; ? ?Omentectomy ? Specimen Integrity of Right Ovary: ?Capsule intact Tumor ? Tumor Site: ??Right ovary ? Histologic Type : ?? Mucinous borderline tumor / atypical proliferative mucinous ?tumor with in traepithelial carcinoma; ??Mucinous borderline tumor / atypical ?proliferative mucinous tumor with microinvasi on ? Tumor Size ?Tumor Size: ??35.0 Centimeters (cm) ? Tumor Extent ?Ovarian Surface Involvement: ?? Absent ?Fallopian Tube Surface Involvement: ?A bsent ?Other Tissue / Organ Involvement: ?Not identified Lymph Nodes ? Regional Lymph Nodes: ?? No lymph nodes submitt ed or found Pathologic Stage Classification (pTNM, AJCC 8th Edition) ? Primary Tumor (pT): ?? pT1a ? Regional Lymph Nodes (pN): ?? pNX FIGO Stage ? FIGO Stage: ??IA Tumor Block(s): ?? A6, A7, A9, A13, A21, A23 Normal Block(s): ?? C2 2016 AJCC 8th Edition CAP Annual Release CR-0 Electronically signed by: ??Chele WANG, Jhoan Flanagan Verified: ??04/07/2018 ?Pathologist Performed at: ??-[facility] Dept. of Pathology, [place], [place] DISCUSSION Scanned slides: [id number] [id number] [id number] [id number] . DISCUSSION [id number] ADDITIONAL STUDIES Formalin-fixed, paraffin-emb edded tissue sections are studied using the B-SA system technique with appropriate positive and negative controls. Block ? Antibody ?Result (Degree of immu noreactivity) B-3 ?Calretinin ? Positive (mesothelial jesu ls) B-3 ?CD34 ? Positive endothelial cells (including ?crushe d area with cautery artifact) IHC studies provide the path ologist with adjunctive diagnostic information. Antibody specificity has been verified by testing antibodies o n a series of in-house tissues with known immunohi stochemical performance characteristics. The clinical interpretation of any antib jolynn positive staining or its absence is evaluated within the context of clinical pre sentation, morphology, ??histopathological criteria and other diagnostic tests. CLINICAL INFORMATION Specimen Submitted: A - Right adnexa for frozen section B - Omental biopsy for frozen section C - Left tube and ovary Clinical History and Diagnosis: Ovarian mass SPECIMEN PROCESSING A - ??Labeled/Fixative: Right adnexa, fresh. Qty/Size/Weight: Single, 35.0 x 30.0 x 2.5 cm. Specimen Description: Intact cystic ovary with attached fall oopian tube. OVARY External Surface: Smooth and glistening. Cut Surface: Predominantly u nilocular cystic neoplasm with a relatively thin wall (averages 0.3 cm). It is fi lled with a thin, brown, semi-translucent fluid. There is one side of the specimen that is thickened up to 3.5 cm (14.0 x 10.0 cm area). The area of wall thickening is multicystic and is filled with a more viscous, clear, colorless material. FALLOPIAN TUBE Size: 12.3 x 0.7 cm. External Surface: smooth serosal covering. SECTIONS/PROCESSING: (1-2) frozen sectio n remnants; (3) fallopian tube; (4-25) additional transportation services representative sections of ovarian neoplasm. (R2 5) B - ??Labeled/Fixative: Omental biopsy, fresh. Quantity/Size: Single, 15.0 x 5.0 x 0.9 cm. Tissue Description: Portion of omental a dipose tissue without masses, areas of induration, or areas of discoloration. Sections/Processing: (1) fro deric section remnant; (2-3) additional transportation services representative sections. (R3) C - ??Labeled/Fixative: Left tube and ovary, fresh. Quantity/Size: Single, 4.2 x 3.5 x 1.5 cm. Tissue Description: 2.7 x 1. 1 x 1.0 cm ovary with attached 5.4 x 0.6 cm fallopian tube and mesoovarian tissue . The external surface of the ovary is light-rosales and cerebriform. Its cut surfac e is firm and variegated rosales and brown. The external surface of the fallopian tu be is smooth and glistening, but has a dark brown ??area of discoloration. No masses are seen within the specimen. Sections/Processing: (1) fallopian tube; (2) ovary. (R2) ?nsm . ?Fro deric Section FROZEN SECTION DIAGNOSIS BFS - Omental biopsy: ?No evidence of malignancy (deeper levels ?obtained). - [facility] 03/30/18 11:50 Electronically signed by: ??hJoan Elaine MD Verified: ??03/30/2018 ?Pathologist Performed at: ??-[facility] Dept. of Pathology, [place], [place] This intraoperative consultation should be interpreted as a preliminary diagnosis pending review of the entire specimen and sp ecial studies, if any. 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 - [facility] 03/30/18 11:41 Electronically signed by: ??Jhoan Elaine MD Verified: ??03/30/2018 ?Pathologist Performed at: ??-[facility] Dept. of Pathology, [place], [place] This intraoperative consultation should be interpreted as a preliminary diagnosis pending review of the entire specimen and sp ecial studies, if any. Specimen (Source) Anatomical Collection Method Collection Time Re ceived Time Location / / Volume Laterality 03/30/2018 10:46 AM EDT Nohemy Van MD PATHOLOGY/CYTOLOGY ORDERABLE S Performing Organization Address City/State/[place] [address] Specimen to Pathology (03/30/2018 10:46 AM EDT) Specimen Anatomical Collection Method Collection Time Receive d Time (Source) Location / / Volume Laterality AP Specimen 03/30/2018 10:46 03/30/2018 AM EDT 10:46 AM EDT Narrative [facility] - 03/30/2018 10:46 AM EDT Specimen requisition ordered. ??Separate Pathology report to follow Nohemy Van MD PATHOLOGY/CYTOLOGY ORDERABLE S Performing Organization Address City/[facility] [place] [address] XR Fluoro No Rad <1Hr - OR Use (03/30/2018 9:28 AM EDT) Specimen (Source) Anatomical Location Collection Method / Collectio n Time Received Time / Laterality Volume Narrative [facility] - 03/30/2018 9:28 AM EDT This order does not need a radiologist i nterpretation. ?? Nohemy Van MD IMG FLUORO ORDERABLES Performing Organization Address City/[facility] Phon e Number RAD [place], [place] documented in this encounter Visit Diagnoses Diagnosis Ovarian mass - Primary Unspecified noninflammatory disorder of ovary, fallopian tube, and broad ligament Tachycardia Tachycardia, unspecified documented in this encounter Admitting Diagnoses Diagnosis Ovarian mass Unspecified noninflammatory disorder of ovary, fallopian tube, and broad ligament documented in this encounter Administered Medications Inactive Administered Medications - up to 3 most recent administrations Medication Order MAR Action Action Date Dose Rate Site acetaminophen (OFIRMEV) Given 04/01/2018 10:19 AM 1,000 mg 400 mL/hr injection 1,000 mg EDT 1,000 mg, Intravenous, at 400 mL/hr, ONCE, 1 dose, On Wed04/01/18 at 1000, Maximum dose of acetaminophen is 4000 mg from all sources in 24 hours., STAT, Is ketorolac (TORADOL) IV contraindicated? No, Can this patient tolerate oral medications or suppositories? No acetaminophen (TYLENOL) tablet 650 mg Given 03/31/2018 9:07 PM EDT 650 mg 650 mg, Oral, EVERY 6 HOURS PRN, Starting on Wed03/30/18 at 1335, Until Tonya 03/31/18 at 2133, Pain, - If ordered with other PRN pain medications give Ibuprofen first, then acetaminophen, then additional agents according to the pain scale. - Not to exceed 4g in 24 hours, Routine acetaminophen (TYLENOL) tablet 650 mg Given 04/01/2018 5:31 AM EDT 650 mg 650 mg, Oral, EVERY 6 HOURS SCHEDULED, First dose (after last modification) on Wed04/01/18 at 0600, Until Discontinued, - If ordered with other PRN pain medications give Ibuprofen first, then acetaminophen, then additional agents according to the pain scale. - Not to exceed 4g in 24 hours, Routine acetaminophen (TYLENOL) tablet 650 mg Given 04/03/2018 11:24 AM EDT 650 mg 650 mg, Oral, EVERY 6 HOURS SCHEDULED, First dose on Wed04/01/18 at 1800, Until Discontinued, Maximum dose of acetaminophen is 4000 mg from all sources in 24 hours., Routine Given 04/03/2018 6:46 AM EDT 650 mg Given 04/02/2018 11:58 PM EDT 650 mg docusate sodium (COLACE) capsule 100 mg Given 04/01/2018 9:19 AM EDT 100 mg 100 mg, Oral, 2 TIMES DAILY, First dose on Wed03/30/18 at 2100, Until Discontinued, Routine Given 03/31/2018 9:07 PM EDT 100 mg Given 03/31/2018 8:10 AM EDT 100 mg enoxaparin (LOVENOX) injection 40 mg Given 04/02/2018 9:06 PM EDT 40 mg 40 mg, Subcutaneous, NIGHTLY, First dose on Tonya 03/31/18 at 2100, Until Discontinued, Routine Given 04/01/2018 9:45 PM EDT 40 mg Given 03/31/2018 9:08 PM EDT 40 mg fentaNYL (PF) 50mcg/mL injection Given 03/30/2018 9:11 AM EDT 25 mcg 12.5-50 mcg, Intravenous, EVERY 1 MIN PRN, Starting on Wed03/30/18 at 0802, Until Wed03/30/18 at 0943, Pain, for use during epidural placement only, Start dose 25 mcg (reduce dose to 12.5 mcg if history of sedation sensitivity). Titration dose 12.5 to 50 mcg IV (based on pt response). Intravenous (IV) every 3 minutes to maintain procedural pain less than 2 per pain scale. Maximum dose 50 mcg per dose, 250 mcg per hour., Day of Surgery (Day of Procedure), Routine Given 03/30/2018 9:06 AM EDT 25 mcg fentaNYL (PF) 50mcg/mL injection Given 03/30/2018 1:28 PM EDT 50 mcg 25-50 mcg, Intravenous, EVERY 5 MIN PRN, Starting on Wed03/30/18 at 1221, Until Wed03/30/18 at 1444, Pain, Give 25 mcg every 5 minutes PRN for mild to moderate pain (1-5) Give 50 mcg every 5 minutes PRN for moderate to severe pain (6-10). Hold for respiratory rate less than 10 per minute. Maximum dose 250 mcg over one hour. If ordered with hydromorphone or morphine, give hydromorphone or morphine first and use fentanyl for breakthrough pain., PACU Recovery, Routine fentaNYL 2 mcg/mL, BUpivacaine Continued Bag 03/30/2018 1:11 PM EDT 6 mL/hr 6 mL/hr (MARCAINE) 0.0625% (0.625 mg/mL)(1/16%) in sodium chloride 0.9% 250 mL epidural 6 mL/hr, Epidural, CONTINUOUS + PCEA, Starting on Wed03/30/18 at 0830, Until Wed03/30/18 at 1435, Maximum rate for continuous infusion 14 mL per hour Maximum total epidural rate (continuous and PCEA bolus) is 25 mL per hour, Recovery (Recovery-Hospital Unit), Routine, Patient Controlled Epidural Analgesia (PCEA): 3 mL, PCEA Bolus Frequency: Every 20 minutes Restarted 03/30/2018 12:35 PM EDT 6 mL/hr 6 mL/hr New Bag 03/30/2018 11:30 AM EDT 6 mL/hr 6 mL/hr fentaNYL 2 mcg/mL, Rate/Dose Verify 04/02/2018 5:14 AM 3 mL/hr 3 m L/hr BUpivacaine (MARCAINE) 0.125% EDT (1.25 mg/mL)(1/8%) in sodium chloride 0.9% 250 mL epidural 3 mL/hr, Epidural, CONTINUOUS + PCEA, Starting on Wed03/30/18 at 1600, Until 04/02/18 at 0855, Maximum rate for continuous infusion 14 mL per hour Maximum total epidural rate (continuous and PCEA bolus) is 25 mL per hour, Recovery (Recovery-Hospital Unit), Routine, Patient Controlled Epidural Analgesia (PCEA): 3 mL, PCEA Bolus Frequency: Every 20 minutes New Bag 04/01/2018 4:15 PM EDT 3 mL/hr 3 mL/hr Restarted 04/01/2018 3:16 PM EDT 3 mL/hr 3 mL/hr heparin (Porcine) subcutaneous injection Given 018 9:31 AM EDT 5,000 Units 5,000 Units 5,000 Units, Subcutaneous, ONCE, 1 dose, On Wed03/30/18 at 0845, Day of Surgery (Day of Procedure), Routine ibuprofen (ADVIL;MOTRIN) tablet 600 mg Given 04/01/2018 9:19 AM EDT 600 mg 600 mg, Oral, EVERY 6 HOURS, First dose on Wed03/31/18 at 2000, Until Discontinued, - Begin after ketorolac discontinued. , Routine Given 04/01/2018 1:25 AM EDT 600 mg Given 03/31/2018 7:52 PM EDT 600 mg ibuprofen (ADVIL;MOTRIN) tablet 600 mg 600 mg, Oral, EVERY 6 HOURS PRN, Startin g on Wed04/03/18 at 0250, Until Wed04/03/18 at 1429, Pain, Administer orally with milk or food to minimize GI irritation. Maximum dose of 3200 mg from all sources in 24 hours, Routine iohexol (OMNIPAQUE) 350 mg/mL solution 0-200 Given 12:23 PM EDT 89 mLs mL 0-200 mL, Intravenous, ONCE PRN, 1 dose, Starting on Wed04/01/18 at 1223, Until Wed04/01/18 at 1223, Per Protocol, Warning Vesicant/Irritant Medication , Radiology Contrast, Routine ketorolac (TORADOL) injection 15 mg Given 03/31/2018 1:27 PM EDT 15 mg 15 mg, Intravenous, EVERY 6 HOURS, 5 doses, First dose on Wed03/30/18 at 1400, Last dose on Wed03/31/18 at 1400, Routine Given 03/31/2018 8:10 AM EDT 15 mg Given 03/31/2018 1:12 AM EDT 15 mg ketorolac (TORADOL) injection 15 mg Given 04/02/2018 11:58 PM EDT 15 mg 15 mg, Intravenous, EVERY 6 HOURS SCHEDULED, 10 doses, First dose on Wed04/01/18 at 1200, Last dose on Wed04/03/18 at 1800, Routine Given 04/02/2018 5:57 PM EDT 15 mg Given 04/02/2018 12:59 PM EDT 15 mg lactated Ringers 500 mL IV bolus New 03/31/2018 7:52 PM EDT Intravenous, ONCE, 1 dose, On Tonya 03/31/18 at 1915 lactated Ringers 500 mL IV bolus New 04/01/2018 4:15 AM EDT Intravenous, ONCE, 1 dose, On Wed04/01/18 at 0415 lactated Ringers infusion 1,000 New Bag 03/30/2018 8:40 AM EDT 1,000 mLs 100 mL/hr mL 1,000 mL, at 100 mL/hr, Intravenous, CONTINUOUS, Starting on Wed03/30/18 at 0845, Until Wed03/30/18 at 1335, Day of Surgery (Day of Procedure) lactated Ringers infusion 1,000 New Bag 04/02/2018 5:15 AM EDT 1,000 mLs 100 mL/hr mL 1,000 mL, at 100 mL/hr, Intravenous, CONTINUOUS, Starting on Wed03/30/18 at 1400, Until Wed04/03/18 at 0253 04/01/2018 3:17 PM EDT 1,000 mLs 100 mL/hr 03/30/2018 1:38 PM EDT 1,000 mLs 100 mL/hr lidocaine (XYLOCAINE) 10 mg/mL (1 %) injection Given 0 03/30/2018 8:41 AM EDT 3 mg 3 mg 3 mg (0.3 mL), Subcutaneous, ONCE PRN, 1 dose, Starting on Wed03/30/18 at 0826, Until Wed03/30/18 at 0841, for discomfort with PIV insertion, Day of Surgery (Day of Procedure), Routine magnesium sulfate 2 g in sterile water New 03/31/2018 6:51 PM EDT 2 g 25 mL/hr 50 mL 2 g, Intravenous, ONCE, 1 dose, On Wed03/31/18 at 1900, Administer over 120 Minutes midazolam (PF) (VERSED) 1 mg/mL injection Given 03/30/2018 9:18 AM EDT 0.5 mg 0.5-2 mg 0.5-2 mg, Intravenous, EVERY 1 MIN PRN, Starting on Wed03/30/18 at 0802, Until Wed03/30/18 at 0943, Anxiety, for epidural placement only, Start dose 1 mg (reduce dose to 0.5 mg if history of sedation sensitivity). Titration dose: 0.5 mg - 2 mg IV (based on patient response). Intravenous (IV) every 3 minutes prn to obtain RASS score of -2. Maximum dose 2 mg per dose, 10 mg per hour., Day of Surgery (Day of Procedure), Routine Given 03/30/2018 9:12 AM EDT 1 mg Given 03/30/2018 9:05 AM EDT 1 mg ondansetron (ZOFRAN) injection 4 mg Given 04/01/2018 9:33 AM EDT 4 mg 4 mg, Intravenous, EVERY 8 HOURS PRN, Starting on Wed03/30/18 at 1446, Until Wed04/03/18 at 1429, Nausea piperacillin-tazobactam (ZOSYN) New Bag 04/02/2018 9:06 PM 3.375 g 12.5 mL/hr 3.375 g vial attach to sodium EDT chloride 0.9% 50 mL Mini-Bag Plus 3.375 g, Intravenous, EVERY 8 HOURS, First dose on Tonya 03/31/18 at 2100, Until Discontinued, Administer over 4 Hours, Warning Vesicant/Irritant Medication , Indication for (Active or Suspected): GI/Intra-abdominal New Bag 04/02/2018 12:59 PM EDT 3.375 g 12.5 mL/hr New Bag 04/02/2018 5:15 AM EDT 3.375 g 12.5 mL/hr potassium chloride (K-DUR/KLOR-CON) extended Given 9:19 AM EDT 20 mEq release tablet 20 mEq 20 mEq, Oral, 2 TIMES DAILY, First dose on Tonya 03/31/18 at 2130, Until Discontinued, 20 mEq tablet may be dissolved in water for administration, Routine Given 03/31/2018 9:21 PM EDT 20 mEq potassium chloride 10 mEq in 100 mL New Bag 03/31/2018 6:53 PM EDT 10 mEq 100 mL/hr 10 mEq, Intravenous, EVERY 2 HOURS, 3 doses, First dose on Tonya 03/31/18 at 1900, Last dose on Tonya /28/18 at 2300, Administer over 60 Minutes, Warning Vesicant/Irritant Medication promethazine (PHENERGAN) injection 12.5 mg Given 03/30/2018 1:27 PM EDT 12.5 mg 12.5 mg, Intravenous, EVERY 30 MIN PRN, 2 doses, Starting on Wed03/30/18 at 1303, Until Wed03/30/18 at 1444, Nausea, VESICANT - Dilute with a minimum of 10 mL saline. LARGE VEIN only. Inject over 10 minutes into the farthest port of a running IV infusion. Remain with the patient and STOP infusion immediately if patient reports burning. Avoid extravasation. If multiple antiemetics are ordered, use ondansetron first and if ineffective use prochlorperazine second and if ineffective use promethazine., PACU Recovery, Routine senna-docusate (PERICOLACE) 8.6-50 mg per Given 2017 9:58 AM EDT 2 tablets tablet 2 tablet 2 tablet, Oral, 2 TIMES DAILY, First dose on Wed04/01/18 at 1000, Until Discontinued, Hold if emesis, Routine Given 04/02/2018 9:06 PM EDT 2 tablets sodium chloride 0.9 % flush 5 mL Given 04/02/2018 9:06 PM EDT 5 mLs 5 mL, Intravenous, 2 TIMES DAILY, First dose on Wed03/30/18 at 2100, Until Discontinued, Routine Given 04/02/2018 9:02 AM EDT 5 mLs Given 04/01/2018 9:45 PM EDT 10 mLs sodium chloride 0.9% infusion New Bag 03/31/2018 8:56 PM EDT 500 mLs 500 mL, Intravenous, ONCE, 1 dose, On Wed03/31/18 at 2100, Bolus. vancomycin 1 g in 0.9 % sodium New Bag 04/03/2018 1:42 AM EDT 1 g 200 mL/hr chloride 200 mL 1 g, Intravenous, EVERY 12 HOURS, First dose on Wed04/01/18 at 1300, Until Discontinued, Administer over 60 Minutes, Maximum infusion rate is 1 gram/hour. If flushing of the face, neck, upper body, arms, and/or back occurs decrease infusion rate by 50% to reduce the severity of symptoms. This medication may have an associated drug lab level. Please see MAR for scheduled level. Warning Vesicant/Irritant Medication , Indication for (Active or Suspected): GI/Intra-abdominal New Bag 04/02/2018 12:59 PM EDT 1 g 200 mL/hr New Bag 04/02/2018 1:00 AM EDT 1 g 200 mL/hr vancomycin 2 g in sodium chloride 0.9% New Bag 04/01/2018 1:23 AM EDT 2 g 250 mL/hr 500 mL 2 g, Intravenous, ONCE, 1 dose, On Wed04/01/18 at 0100, Administer over 120 Minutes, Maximum infusion rate is 1 gram/hour. If flushing of the face, neck, upper body, arms, and/or back occurs decrease infusion rate by 50% to reduce the severity of symptoms. This medication may have an associated drug lab level. Please see MAR for scheduled level. Warning Vesicant/Irritant Medication , Indication for (Active or Suspected): GI/Intra-abdominal documented in this encounter Active and Recently Administered Medications Times are shown in EDT. Scheduled Medication Order 04/01/2018 04/02/2018 04/03/2018 acetaminophen (OFIRMEV) injection 1,000 mg (COMPLETED) 1019 (Given - Provider: Tamy Ta RN) 1,000 mg, Intravenous, at 400 mL/hr, ONC E, 1 dose, Wed04/01/18 at 1000, Maximum dose of acetaminophen is 4000 mg from all sources in 24 hours., STAT acetaminophen (TYLENOL) tablet 650 mg (CANCELED) 0531 (Given - Provider: Michelet Cottrell RN) 650 mg, Oral, EVERY 6 HOURS SCHEDULED, F irst dose on Wed04/01/18 at 0600, Until Discontinued, - If ordered with other PRN pain medications give Ibuprofen first, then acetaminophen, then additional agent s according to the pain scale. - Not to exceed 4g in 24 hours, R outine acetaminophen (TYLENOL) tablet 650 mg 1839 (Given - Pr ovider: Tamy Ta RN)2355 (Not Given - Provider: Meghan Rivero RN - Reason: Patient/family refused) 0530 (Not Given - Provider: Meghan Rivero RN - Reason: Patient/family refused)1200 (Not Given - Provider: Kayla Mohr RN - Reason: Patient/family refused)1757 (Given - Provider: Kayla Mohr RN)2358 (Given - Provider: Tabatha Rao RN) 0646 (Given - Provider: Tabatha Rao RN)1124 (Given - Provider: José Manuel Ventura RN) 650 mg, Oral, EVERY 6 HOURS SCHEDULED, F irst dose on Wed04/01/18 at 1800, Until Discontinued, Maximum dose of acetaminophen is 4000 mg from all sources in 24 hours., Routine docusate sodium (COLACE) capsule 100 mg (CANCELED) 091 9 (Given - Provider: Tamy Ta RN) 100 mg, Oral, 2 TIMES DAILY, First dose on Wed03/30/18 at 2100, Until Discontinued, Routine enoxaparin (LOVENOX) injection 40 mg 2144 (Given - Provider: Meghan Rivero RN) 2105 (Given - Provider: Tabatha Rao RN) 40 mg, Subcutaneous, NIGHTLY, First dose on Wed03/31/18 at 2100, Until Discontinued, Routine ibuprofen (ADVIL;MOTRIN) tablet 600 mg (CANCELED) 0125 (Given - Provider: Michelet Cottrell RN)0919 (Given - Provider: Tamy Ta RN) 600 mg, Oral, EVERY 6 HOURS, First dose on Wed03/31/18 at 2000, Until Discontinued, - Begin after ketorolac discontinued. , Routine ketorolac (TORADOL) injection 15 mg (CANCELED) 1253 (G iven - Provider: Tamy Ta RN)1839 (Given - Provider: Tamy Ta RN)2355 (Given - Provider: Meghan Rivero RN) 0530 (Given - Provider: Meghan Rivero RN) 1259 (Given - Provider: Kayla Mohr RN)1757 (Given - Provider: Kayla Mohr RN)2358 (Given - Provider: Tabatha Rao RN) 15 mg, Intravenous, EVERY 6 HOURS SCHEDU LED, 10 doses, First dose on Wed04/01/18 at 1200, Last dose on Wed04/03/18 at 1800, Routine lactated Ringers 500 mL IV bolus (COMPLETED) 0415 (New Bag - Provider: Michelet Cottrell RN) Intravenous, ONCE, 1 dose, Wed04/01/18 at 0415 piperacillin-tazobactam (ZOSYN) 3.375 g vial attach to sodium chloride 0.9% 50 mL Mini-Bag Plus (CANCELED) 0133 (Stopped - Provider: Michelet fernandez RN)0420 (New Bag - Provider: Michelet Cottrell RN)0820 (Stopped - Provider: Tamy Ta RN)1252 (New Bag - Provider: Tamy Ta RN)1652 (Stopped - Provider: Tamy Ta RN) 0145 (Stopped - Provider: Jane Kemp)0515 (New Bag - Provider: Meghan Rivero RN)0901 (Stopped - Provider: Savannah Hdz RN)1259 (New Bag - Provider: Kayla Mohr RN)1659 (Stopped - Provider: Kayla Mohr RN) 0106 (Stopped - Provider: Tabatha Weaver ch, RN) 3.375 g, Intravenous, EVERY 8 HOURS, Fir st dose on Wed03/31/18 at 2100, Until Discontinued, Administer over 4 Hours, Warning Vesicant/Irritant Medication , Indication for (Active or Suspected): GI/Intra-abdominal 2144 (New Bag - Provider: Meghan Rivero RN) 2105 (New Bag - Provider: Tabatha Rao RN) potassium chloride (K-DUR/KLOR-CON) extended release t ablet 20 mEq (CANCELED) 0919 (Given - Provider: Tamy Ta RN) 20 mEq, Oral, 2 TIMES DAILY, First dose on Wed03/31/18 at 2130, Until Discontinued, 20 mEq tablet may be dissolved in water for administration, Routine senna-docusate (PERICOLACE) 8.6-50 mg per tablet 2 tab let 1000 (Not Given - Provider: Tamy Ta RN - Reason: Patient/family refused)2099 (Not Given - Provider: Meghan Rivero RN - Reason: See comment) 09 (Not Given - Provider: Savannah Hdz RN - Reason: Patient/family refused)210 (Given - Provider: Tabatha Rao RN) 0958 (Given - Provider: José Manuel michael RN) 2 tablet, Oral, 2 TIMES DAILY, First dos e on Wed04/01/18 at 1000, Until Discontinued, Hold if emesis, Routine sodium chloride 0.9 % flush 5 mL 1018 (Given - Provide r: Tamy Ta RN)2145 (Given - Provider: Meghan Rivero RN) 0902 (Given - Provider: Savannah Hdz RN)2106 (Given - Provider: Tabatha Rao RN) 0900 (Not Given - Provider: José Manuel Ventura RN - Reason: Order parameters not met - Comment: PIV removed prior) 5 mL, Intravenous, 2 TIMES DAILY, First dose on Wed03/30/18 at 2100, Until Discontinued, Routine vancomycin 1 g in 0.9 % sodium chloride 200 mL (CANCEL ED) 1252 (New Bag - Provider: Tamy Ta RN)1352 (Stopped - Provider: Tamy Ta RN) 0100 (New Bag - Provider: Meghan Rivero RN)0200 (Stopped - Provider: Meghan Rivero RN)1259 (New Bag - Provider: Kayla Mohr RN)1359 (Stopped - Provider: Kayla Mohr RN) 0142 (New Bag - Provider: Tabatha Weaver ch, RN)0242 (Stopped - Provider: Tabatha Rao RN) 1 g, Intravenous, EVERY 12 HOURS, First dose on Wed04/01/18 at 1300, Until Discontinued, Administer over 60 Minutes, Maximum infusion rate is 1 gram/hour. If flushing of the face, neck, upper body, arms , and/or back occurs decrease infusion r ate by 50% to reduce the severity of symptoms. This medication may have an associated drug lab level. Please see MAR for scheduled level. Warning Vesicant/Irri tant Medication , Indication for (Active or Suspected): GI/In tra-abdominal vancomycin 2 g in sodium chloride 0.9% 500 mL (COMPLET ED) 0123 (New Bag - Provider: Michelet Cottrell RN)0323 (Stopped - Provider: Michelet Cottrell RN) 2 g, Intravenous, ONCE, 1 dose, 6/29 /18 at 0100, Administer over 120 Minutes, Maximum infusion rate is 1 gram/hour. If flushing of the face, neck, upper body, arms, and/or back occurs decrease infus ion rate by 50% to reduce the severity o f symptoms. This medication may have an associated drug lab level. Please see MAR for scheduled level. Warning Vesicant/Irritant Medication , Indication for (Active or Suspected): GI/Intra-abdominal Vancomycin Level - MAR Order Reminder 10 02 (Lab Order Released - Provider: Kayla Mohr, RADHA) NOT APPLICABLE, ONCE, 04/02/18 at 123 0, For 1 dose, This alert will be scheduled by a pharmacist after order placement. This order is a reminder to nursing staff to release and draw the PRN drug leve l at the specified time. It may be neces palmer to contact phlebotomy 60 minutes prior to the scheduled due time to assure a timely blood draw. Continuous Medication Order 04/01/2018 04/02/2018 04/03/2018 fentaNYL 2 mcg/mL, BUpivacaine (MARCAINE ) 0.125% (1.25 mg/mL)(1/8%) in sodium chloride 0.9% 250 mL epidural (CANCELED) 0940 (Rate/Dose Change - Provider: Juan Lin RN)1339 (Paused - Provider: Juan Lin RN)1516 (Restarted - Provider: Tamy Ta RN)1615 (New Bag - Provider: Tamy Ta RN) 0514 (Rate/Dose Verify - Provider: Meghan Rocha RN)0800 (Stopped - Provider: Kayla Mohr RN) 3 mL/hr, Epidural, at 3 mL/hr, CONTINUOU S + PCEA, Starting 03/30/18 at 1600, Until 04/02/18 at 0855, Maximum rate for continuous infusion 14 mL per hour Maximum total epidural rate (continuous and PCEA bolus) is 25 mL per hour, Recovery (Recovery-Hospital Unit ), Routine lactated Ringers infusion 1,000 mL (CANCELED) 1517 (Ne w Bag - Provider: Tamy Ta RN) 0515 (New Bag - Provider: Meghan Rivero RN) 0256 (Stopp ed - Provider: Tabatha Rao RN) 1,000 mL, at 100 mL/hr, Intravenous, CON TINUOUS, Starting Wed03/30/18 at 1400, Until Wed04/03/18 at 0253 PRN Medication Order 04/01/2018 04/02/2018 04/03/2018 HYDROmorphone (DILAUDID) injection 0.2 mg 0.2 mg, Intravenous, ONCE PRN, 1 dose, S tarting Wed03/30/18 at 1446, Until Wed04/03/18 at 1429, Pain, PRN for Severe Pain (7-10) or if unable to take P.O. medication, PRN for Severe Pain (7-10) or if unable to take P.O. medication, Routine ibuprofen (ADVIL;MOTRIN) tablet 600 mg 600 mg, Oral, EVERY 6 HOURS PRN, Startin g Wed04/03/18 at 0250, Until Wed04/03/18 at 1429, Pain, Administer orally with milk or food to minimize GI irritation. Maximum dose of 3200 mg from all sources in 24 hours, Routine iohexol (OMNIPAQUE) 350 mg/mL solution 0-200 mL (COMPL ETED) 1223 (Given - Provider: Jeanne Ambrocio) 0-200 mL, Intravenous, ONCE PRN, 1 dose, Starting Wed04/01/18 at 1223, Until Wed04/01/18 at 1223, Per Protocol, Warning Vesicant/Irritant Medication , Radiology Contrast, Routine lidocaine (XYLOCAINE) 10 mg/mL (1 %) injection 3 mg 3 mg (0.3 mL), Subcutaneous, ONCE PRN, 1 dose, Starting Wed03/30/18 at 1446, Until Wed04/03/18 at 1429, for discomfort with PIV insertion, Routine ondansetron (ZOFRAN) injection 4 mg 0933 (Given - Prov ider: Tamy Ta RN) 4 mg, Intravenous, EVERY 8 [address] PRN, St arting Wed03/30/18 at 1446, Until Wed04/03/18 at 1429, Nausea oxyCODONE (ROXICODONE) immediate release tablet 5-10 mg 5-10 mg, Oral, EVERY 4 HOURS PRN, Starti ng Wed03/30/18 at 1335, Until Wed04/03/18 at 1429, Pain, Severe pain (7-10), - Initial dose 5 mg. - If pain control not adequate in 60 minutes, give additional 5 mg., Routine polyethylene glycol (MIRALAX) packet 17 g 17 g, Oral, DAILY PRN, Starting Wed 03/30 at 1446, Until 04/03/18 at 1429, Constipation, Administer if no bowel movement within 48 hours to achieve: (1) One bowel movement at least every 48 hours, A ND (2) without straining. If multiple GA N bowel medications ordered, start with polyethylene glycol, then lactulose, then oral bisacodyl, then bisacodyl suppository, then magnesium citrate, then tap judie er enema. Multiple medications may be gi petey concomitantly for constipation., Routine sodium chloride 0.9 % flush 5-20 mL 5-20 mL, Intravenous, EVERY 1 MIN PRN, S tarting 03/30/18 at 1446, Until 04/03/18 at 1429, flush, Flush pertains to all indwelling lines. Flush per protocol found in the job aid using the link provided on this medication record., Routine documented in this encounter Care Teams Supervisor Grips Relationship Specialty Start Date End Date Boogie Torres MD PCP - General Family Medicine 02/12/18 [address] [id number] documented as of this encounter
--- OUTSIDE RECORDS SUMMARY | 2022-07-17 01:53 | XMS_ITS | Encounter Summary ---
:1975 Author Organization [facility] [place] [address] Care Team Providers Name Role Phone Boogie Torres MD Primary Care Provider Encounter Details Date Type Department Care Team Description 09/22/2018 Orders Only [place] [facility] [place] [address] Social History Tobacco Use Types Packs/Day Years Used Date Never Smoker Smokeless Tobacco: Never Used Alcohol Use Standard Drinks/Week Comments No 0 (1 standard drink = 0.6 oz pure alcoho l) Sex Assigned at Date Recorded Not on file documented as of this encounter Plan of Treatment Not on filedocumented as of this encounter Visit Diagnoses Not on filedocumented in this encounter Care Teams Can Sorter Relationship Specialty Start Date End Date Boogie Torres MD PCP - General Family Medicine 02/12/18 [place] [id number] documented as of this encounter
--- OUTSIDE RECORDS SUMMARY | 2022-07-17 01:53 | XMS_ITS | Encounter Summary ---
:1975 Demographics Home Phone Preferred Language Unknown Marital Status Unknown L[employer] Day Affiliation Unknown Race Unknown Ethnic Group Unknown Author Organization [facility] Address [address] [place] [address] Care Team Providers Name Role Phone Unavailable Primary Care Provider Unavailable Encounter Details Date Type Department Care Team Description 01/23/2022 Lab Requisition [facility] Outr Resulting Lab, Pathology & Laboratory Provider General acute hospital [address] [place] [address] Social History Tobacco Use Types Packs/Day Years Used Date Never Assessed Sex Assigned at Date Recorded Not on file documented as of this encounter Plan of Treatment Not on filedocumented as of this encounter Procedures Procedure Name Priority Date/Time Associated Diagnosis Comme nts CA 125 Routine 01/23/2022 15:05 EDT Results for this procedure are i n the results section . documented in this encounter Results CA 125 (01/23/2022 15:05 EDT) CA 125 3 <30 U/mL [facility] Comment: LABORATORY SERVICES NOTE: Serum CA 125 concentration s hould not be interpreted as absolute evidence for the presence or absence of malignant disease. Assayed on Siemens ADVIA Elpidio taur XPT using chemiluminescent technology. ??Values obtained by using different assay methods cannot be used interchangeably. Specimen Blood - Venous blood (substance) Performing Organization Address City/State/ZIP Code Phon e Number [facility] [address] [place] [address] SERVICES documented in this encounter Visit Diagnoses Not on filedocumented in this encounter
--- OUTSIDE RECORDS SUMMARY | 2022-07-17 01:53 | XMS_ITS | Clinical Summary ---
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 Social History Tobacco Use Types Packs/Day Years Used Date Never Smoker Smokeless Tobacco: Never Used Alcohol Use Standard Drinks/Week Comments No 0 (1 standard drink = 0.6 oz pure alcoho l) Sex Assigned at Date Recorded Not on file Last Filed Vital Signs Vital Sign Reading Time Taken Comments Blood Pressure 122/80 05/18/2018 2:54 PM EDT Pulse 99 05/18/2018 2:54 PM EDT Temperature 37.1 ??C (98.8 ??F) 05/18/2018 2:54 PM EDT Respiratory Rate 12 05/18/2018 2:54 PM EDT Oxygen Saturation 97% 05/18/2018 2:54 PM EDT Inhaled Oxygen Concentration - - Weight 71.1 kg (156 lb 12 oz) 05/18/2018 2:54 PM EDT Height 160.1 cm (5' 3.03) 05/18/2018 2:54 PM EDT Body Mass Index 27.74 05/18/2018 2:54 PM EDT Plan of Treatment Health Maintenance Due Date Last Done Comments Covid-19 Vaccine (#1) 05/16/1976 HIV screen 1993 Hepatitis C Screening 1993 Tdap adult 1994 Tetanus vaccine 1994 Breast Cancer Share Decision Needed 2015 Colonoscopy 2020 Influenza (Flu) vaccine (1 of - Influenza standard 06/04/2022 series) HPV test 03/04/2023 03/04/2018 PAP Smear 03/04/2023 03/04/2018 Insurance Payer Benefit Plan / Subscriber ID Effective Dates Phone Addre ss Type [place] [id number] 2018-Jie [phone] [address] [facility] [address] [place] [id number] Advance Directives Latest Code Status on File Code Status Date Activated Date Inactivated Comments Full Code 03/30/2018 1:09 PM 04/03/2018 2:29 PM Does patient have capacity to make decision: Yes Care Teams Marketing Content Coordinator Relationship Specialty Start Date End Date Boogie Torres MD PCP - General Family Medicine 02/12/18 [facility] [place] [id number]
--- OUTSIDE RECORDS SUMMARY | 2022-07-17 01:53 | XMS_ITS | Encounter Summary ---
:1975 Author Organization [facility] [place] [address] Care Team Providers Name Role Phone Boogie Torres MD Primary Care Provider Encounter Details Date Type Department Care Team Description 04/13/2018 Multidisciplinary Care Obstetrics and Nedra Molina, Committee Gynecology at [facility] [place] [id number] Social History Tobacco Use Types Packs/Day Years Used Date Never Smoker Smokeless Tobacco: Never Used Alcohol Use Standard Drinks/Week Comments No 0 (1 standard drink = 0.6 oz pure alcoho l) Sex Assigned at Date Recorded Not on file documented as of this encounter Progress Notes Nedra Molina, RN - 04/13/2018 11:59 PM EDT Disease Intervention Specialist - Tumor Board Note Date Presented: 04/13/18 Presenting Physician: Sravani Miranda MD for Dr. Van Diagnosis/Tumor Site: Borderline tumor Is this Metastatic Disease: No Synopsis of History/HPI: She first started noticing her enlarging abdomen ~1.5 years ago. She did not think about pursuing treatment because she was not having symptoms including abdominal pain, changein bowel or bladder function, n/v, change in menses, or LE edema. She presented to her PCP due to increasing abdominal girth. She had a CT scan and U/S (no images available) that showed a 30cm septatedmass with solid component that appears to be arising from the left adnexa. No adenopathy or evidenceof metastasis. She reports some early satiety and weight gain recently. She does not desire future childbearing. Imaging: CT scan Abdomen/Pelvis on 12/31/17 at [facility]. Pathology/Histology: A - Right fallopian tube and ovary (salpingo-oophorectomy): ? 1. 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 ? 2. Surface of ovary: Not involved by tumor. ? 3. Benign fallopian tube. B - Omentum: ? 1. Organizing fibrous scar. ? 2. No evidence of malignancy. C - Left fallopian tube and ovary (salpingo-oophorectomy): ? Benign fallopian tube and ovary. SYNOPTIC REPORT Specimen ?Procedure: ??Bilateral salpingo-oophorectomy; ??Omentectomy ?Specimen Integrity of Right Ovary: ?Capsule intact Tumor ?Tumor Site: ??Right ovary ?Histologic Type: ?? 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 proliferative mucinous tumor with microinvasion ?Tumor Size ? Tumor Size: ??35.0 Centimeters (cm) ?Tumor Extent ? Ovarian Surface Involvement: ?? Absent ? Fallopian Tube Surface Involvement: ?Absent ? Other Tissue / Organ Involvement: ?Not identified Lymph Nodes ?Regional Lymph Nodes: ?? No lymph nodes submitted or found Pathologic Stage Classification (pTNM, AJCC 8th Edition) ?Primary Tumor (pT): ?? pT1a ?Regional Lymph Nodes (pN): ?? pNX FIGO Stage ?FIGO Stage: ??IA Tumor Block(s): ?? A6, A7, A9, A13, A21, A23 Normal Block(s): ?? 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 Options Discussed: Estrogen Replacement and Surveillance Recommendations: Estrogen Replacement and Standard Surveillance DISCLAIMER: The patient was discussed and the tumor board made recommendations but it is ultimately up to the treatment provider(s) and the patient to determine the patient???s care. documented in this encounter Plan of Treatment Not on filedocumented as of this encounter Visit Diagnoses Not on filedocumented in this encounter Care Teams Hand Hardener Relationship Specialty Start Date End Date Boogie Torres MD PCP - General Family Medicine 02/12/18 [address] [place] [address] documented as of this encounter
--- OUTSIDE RECORDS SUMMARY | 2022-07-17 01:54 | XMS_ITS | Encounter Summary ---
:1975 Author Organization [facility] [place] [address] Care Team Providers Name Role Phone Boogie Torres MD Primary Care Provider Encounter Details Date Type Department Care Team Description 03/04/2018 Clinical Support Same Day at [facility] [place] [address] Social History Tobacco Use Types Packs/Day Years Used Date Never Smoker Smokeless Tobacco: Never Used Sex Assigned at Date Recorded Not on file documented as of this encounter Progress Notes Licha Barragan RN - 03/04/2018 10:40 AM EDT PAT questionnaire reviewed with patient and , [place] while in Pre Admission testing. Pt has never had surgery or general anesthesia. Pre-operative instruction booklet reviewed. Patient verbalizes a good understanding of all information reviewed. PLAN: Testing: Blood work, T&S Special medication instructions: n/a Procedure date: 03-30-2018. Dr. Van documented in this encounter Plan of Treatment Not on filedocumented as of this encounter Visit Diagnoses Not on filedocumented in this encounter Care Teams Finisher Polisher Relationship Specialty Start Date End Date Boogie Torres MD PCP - General Family Medicine 02/12/18 [place] [address] documented as of this encounter
--- OUTSIDE RECORDS SUMMARY | 2022-07-17 01:54 | XMS_ITS | Encounter Summary ---
:1975 Author Organization [facility] [place] [address] Care Team Providers Name Role Phone Unavailable Primary Care Provider Unavailable Encounter Details Date Type Department Care Team Description 12/31/2017 Hospital Encounter Radiology Library at Josy Van [facility] [place] [phone] GYNECOLOGIC ONCOLOGY [phone] [place], [place] [address] (Wo rk) Social History Tobacco Use Types Packs/Day Years Used Date Never Assessed Sex Assigned at Date Recorded Not on file documented as of this encounter Plan of Treatment Not on filedocumented as of this encounter Procedures Procedure Name Priority Date/Time Associated Diagnosis Comme nts FILM LIBRARY Routine 12/31/2017 12:00 AM Results for this STORAGE ONLY CT EDT procedure ar e in ABDOMEN AND PELVIS the resul ts section. documented in this encounter Results Film Library- Storage Only CT Abdomen & Pelvis (12/31/2017 12:00 AM EDT) Specimen (Source) Anatomical Location Collection Method / Collectio n Time Received Time / Laterality Volume Narrative [facility] - 03/04/2018 2:48 PM EDT This exam is for storage only and is aut o-finalizing. Josy Van MD Larry FILM LIBRARY ORDERABLES Performing Organization Address City/State/ZIP Code Phon e Number RAD [facility] [place], [place] documented in this encounter Visit Diagnoses Not on filedocumented in this encounter
--- OUTSIDE RECORDS SUMMARY | 2022-07-17 01:54 | XMS_ITS | Encounter Summary ---
:1975 Author Organization [facility] Address [facility] [address] [place] [address] Care Team Providers Name Role Phone Boogie Torres MD Primary Care Provider Reason for Visit Reason Comments Establish Care Abdominal Mass Consultation (Routine) - Closed Specialty Diagnoses / Procedures Referred By Contact Refer red To Contact Gynecology Oncology Diagnoses ABDOMINAL MASS Boogie Torres MD [facility] [place] [address] [place] [address] [address] [place] [address] Phone: Fax: Referral ID Status Reason Start Date Expiration Date Visits V isits Requested Authorized [id number] Closed Consult, 02/15/2018 02/15/2019 1 1 [facility] Encounter Details Date Type Department Care Team Description 03/04/2018 Office Visit Gynecology Oncology at [place], [place], Adnexal mass; [facility] Ovarian mass [facility] Danna burciaga [facility] [place] [address] GYNECOLOGIC ONCOLOGY [phone] [place], [place] [address] (Wo rk) Social History Tobacco Use Types Packs/Day Years Used Date Never Smoker Smokeless Tobacco: Never Used Sex Assigned at Date Recorded Not on file documented as of this encounter Last Filed Vital Signs Vital Sign Reading Time Taken Comments Blood Pressure 129/88 03/04/2018 9:49 AM EDT Pulse 116 03/04/2018 9:49 AM EDT Temperature 36.5 ??C (97.7 ??F) 03/04/2018 9:49 AM EDT Respiratory Rate 12 03/04/2018 9:49 AM EDT Oxygen Saturation 98% 03/04/2018 9:49 AM EDT Inhaled Oxygen Concentration - - Weight 90.5 kg (199 lb 8.3 oz) 03/04/2018 9:49 AM EDT Height 160.1 cm (5' 3.03) 03/04/2018 9:49 AM EDT Body Mass Index 35.31 03/04/2018 9:49 AM EDT documented in this encounter Progress Notes Josy Van MD - 03/04/2018 9:00 AM EDT Division [place] [address] Gynecologic Oncology Clinic New Patient Visit Reason for visit: Pelvic mass, referred [place] [address] Problem List Adnexal mass History of present illness: Angelita Morton is a 42 y.o. female, who presents for evaluation of pelvic mass. Presented to PCP for regular follow-up in December 2017. She first started noticing her enlarging abdomen [...] reports some early satiety and weight gain recently.She does not desire future childbearing. She otherwise has not sought medical care since her last child. She has regular menses ~q 30 days. She has her period today Gynecologic history: Menarche was approximately age 11-12 menopause approximately age: premenopausal Number of pregnancies: 1 Spontaneous vaginal deliveries: 1 c-sections: 0 Oral contraceptive/ control pill use: OCP use for past 10 years, depo injection previously for 10 years Menopausal hormone therapy use: none Other contraceptive history: Pap smears: never had an abnormal pap smear Cancer screening 1. Mammography: none 2. Colonoscopy: none Family history: Breast: none Endometrial: none Ovarian: none Colon: none Pancreas: none Other: none Past medical history none Past surgical history none Social history: Lives with her partner of 24 years and son (20) and does not work Tobacco history: none Alcohol history: none Other drugs: none Herbal/alternative therapies: none Performance status: Karnofsky Scale - 100 Medications OCPs Allergies Allergies Allergen Reactions ??? Bee Sting [Hymenoptera Allergenic Extract] Full-body edema, reaction as a child Vital signs: BP 129/88 (Patient Position: Sitting) Pulse (!) 116 Temp 36.5 ??C (97.7 ??F) (Tympanic) Resp 12 Ht 160.1 cm (5' 3.03) Wt 90.5 kg (199 lb 8.3 oz) SpO2 98% BMI 35.31 kg/m2 Physical examination General: She is alert and oriented, well-groomed and dressed, no obvious distress. She ambulates easily. HEENT: PERRLA, no scleral icterus or corneal arcus. Mucus membranes were moist. Neck was supple and without thyromegaly or adenopathy. Lungs: Clear to auscultation bilaterally Heart: RRR, no murmur, rubs, gallop Abdomen: Protuberant with large abdominal mass. Pelvic examination: Normal external genitalia. No lesions of the vulva, clitoris, urethral meatus, perineal body, or perianal area. Speculum exam demonstrates normal vaginal mucosa without lesions, cervix without visible lesions. Pap smear performed. Scan blood in vaginal vault. On bimanual examination, the cervix is mobile. No palpable pelvic masses or nodularity. Abdominal mass does not extend into the pelvis. Rectovaginal exam: confirms the above. Extremities: No edema. Laboratory/pathology/imaging studies: As discussed above, in the history of present illness. Impression/plan: Angelita Morton is a 42 y.o. woman with a large pelvic mass (30 x 23cm) concerning for ovarian cancer vs benign etiology. I recommended she undergo an open LSO with possible ovarian cancer staging based on frozen section. We reviewed risks of surgery including bleeding, infection, injury to surrounding organs (bladder, bowel, ureter, nerves, vessels), possible lymphedema, blood clot in the legs or lung, and pneumonia. Wealso reviewed course of typical recovery and plan for follow-up 2 weeks post-op. Questions answered and consents signed. Recommended removal at soonest possible date but patient requests delay until March 30 due to 's work schedule. 1. Preop/pelvic mass - CBC, BMP, t+s, CA-125 - Research consents signed for tissue bank - CT images requested documented in this encounter Plan of Treatment Not on filedocumented as of this encounter Procedures Procedure Name Priority Date/Time Associated Comments Diagnosis HPV Routine 03/04/2018 11:09 Results for this AM EDT procedure are i n the results section. DIRECTOR OF TAX SERVICES CYTOLOGY Routine 03/04/2018 11:09 Results for this INTERPRETATION AM EDT procedure are in the results section. DIRECTOR OF TAX SERVICES CYTOLOGY FINAL Routine 03/04/2018 11:09 Resul ts for this REPORT AM EDT procedure are i n the results section. CYTOPATHOLOGY Routine 03/04/2018 11:09 Adnexal mass Results fo r this GYNECOLOGICAL AM EDT procedure are in the results section. documented in this encounter Results Biorepository Request (03/04/2018 11:22 AM EDT) Patholo gist Method Time Signature Biorepository Sample in [facility] LABORATORY Specimen Anatomical Collection Method Collection Time Receive d Time (Source) Location / / Volume Laterality Blood specimen 03/04/2018 11:22 8 1:53 (specimen) AM EDT PM EDT Resulting Agency Comment Spec In Lab Josy Van MD CHEMISTRY ORDERABLES Performing Organization Address City/State/[place] [address] (ABNORMAL) Cancer Antigen 125 (03/04/2018 11:22 AM EDT) P athologist Signature CA 125 45.0 (H) <=38.1 [facility] unit/mL [facility] Comment: CA 125 Reference Interval ??Postmenopausal: 6.2 to 31.5 U/mL. ??Premenopausal: 6.9 to 45.9 U/mL. ??Pre and Postmenopausal subjects combi chrissy: 6.4 to 38.1 U/mL. Specimen Anatomical Collection Method Collection Time Receive d Time (Source) Location / / Volume Laterality Blood specimen 03/04/2018 11:22 8 (specimen) AM EDT 11:29 AM EDT Resulting Agency Comment Spec In Lab Josy Van MD CHEMISTRY ORDERABLES Performing Organization Address City/[facility] [place] [address] Creatinine (03/04/2018 11:22 AM EDT) P athologist Signature Creatinine 0.91 0.70 - NICK LUIS 1.20 mg/dL [facility] Estimated GFR >60 >=60 [facility] Comment: The reported eGFR should be multiplied b y 1.2 for patients. The MDRD is not an appropriate measure o f renal function for patients with body mass extremes or in patients with acute kidney failure. http://NanoInk/DHnkdep http://NanoInk/DHMCnkf Specimen Anatomical Collection Method Collection Time Receive d Time (Source) Location / / Volume Laterality Blood specimen 03/04/2018 11:22 8 (specimen) AM EDT 11:29 AM EDT Resulting Agency Comment Spec In Lab Josy Van MD CHEMISTRY ORDERABLES Performing Organization Address City/[facility] [place] [address] BUN (03/04/2018 11:22 AM EDT) P athologist Signature BUN 17 8 - 18 [facility] mg/dL [facility] Specimen Anatomical Collection Method Collection Time Receive d Time (Source) Location / / Volume Laterality Blood specimen 03/04/2018 11:22 8 (specimen) AM EDT 11:29 AM EDT Resulting Agency Comment Spec In Lab Josy Van MD CHEMISTRY ORDERABLES Performing Organization Address City/[facility] [place] [address] (ABNORMAL) Electrolytes panel (03/04/2018 11:22 AM EDT) P athologist Signature Sodium 140 135 - 145 [facility] mmol/L [facility] Potassium 4.2 3.5 - 5.0 [facility] mmol/[facility] Comment: Please note: ??Patients with WBC >100,00 0 may have falsely elevated Potassium levels. ??For accurate Potassium quantif ication in these patients send serum separator tube (gold top) for subsequent determinations. ??Contact the Clinical Chemistry Laboratory if there are any qu estions. Chloride 102 98 - 107 mmol/L [facility] CO2 21 (L) 22 - 31 mmol/L [facility] Anion Gap 17 (H) 5 - 15 mmol/L [facility] Specimen Anatomical Collection Method Collection Time Receive d Time (Source) Location / / Volume Laterality Blood specimen 03/04/2018 11:22 8 (specimen) AM EDT 11:29 AM EDT Resulting Agency Comment Spec In Lab Josy Van MD CHEMISTRY ORDERABLES Performing Organization Address City/State/[place] [address] [employer] Picker Cytology Final Report (03/04/2018 11:09 AM EDT) Component Value Ref Test Analysis Performed At [facility] gist Range Method Time Signature [employer] Cytology [id number] ? Location: [address] [place] [address] Final Report [place] The signing pathologist has (i) examined the relevant preparation(s) for the [facility] specimen(s) and (ii) rendered or confirmed the diagnosis(es) . HOSPITAL LABORATORY . ? [employer] P[employer] Final DIAGNOSIS Normal Negative for intraepithelial lesion or malignancy (NILM). For consensus guidelines for the management of c ervical cancer screening test results, please see: ?? http://www.asccp.org . Electronically signed by: ??Lena Benton Verified: ??03/15/2018 Performed at: ??-[facility] Dept. of Pathology, [place], [place] HPV RESULTS HPV16 (Result) ?Negative HPV18 (Result) ?Negative HPVOHR (Result) ? Negative HPV (Interpretation) ?See Below HPV (Interpretation) Text: NEGATIVE for high-risk HPV *. *Testing negative for high risk HPV means that the specimen is negative for the following 14 types tested: types 16, 18, 31, 33, 35 , 39, 45, 51, 52, 56, 58, 59, 66, and 68. The test is not intended to detect low risk HPV types. Asthmatx fransisco HPV test Specimen: HPV Testing - Cytology Liquid Based Prep The Charlie fransisco ? HPV kathi t was validated, performed and results reported through the Laboratory for Clinical Gen omics and Advanced Technology (CGAT) at [facility]. ? - Chad Brooks, PhD, [facility], Director-CG[facility] STATEMENT OF ADEQUACY Specimen submitted is satisfactory. Endocervical component present. CLINICAL INFORMATION HPV Option: ?Concurrent HPV and Pap CT/NG Option: ?? No Preparation: ? Liquid based Pap Specimen Source: ? Cervical/Endocervical LMP: ? now Hormones?: ? Yes Hysterectomy?: ? No ?: ? No ?: ? No I.U.D.?: ? No Pelvic Radiation: ?No Prior DIRECTOR OF TAX SERVICES Therapy?: ?No Hist Abnl Pap/Biopsy?: ?? No Hist of HPV Vaccine?: ?No Hist of Smoking?: ?No Hist of JOSE ENRIQUE exposure?: ?? No ICD Diagnosis: ? Z12.4 Encounter for screening for malignant neoplasm of cervix . CLINICAL INFORMATION Clinical Data, Significant Therapy and Clinical Impression ? ? : ?_ This Pap Test has been evalu ated with the assistance of the M3X MediaPrep Pap Test Imaging System. Note: The Pap test is a screening test for cervical cancer with an inherent false-negative rate dependent upon several variables. For further information please contact the [facility] Laboratory. Reference: Sheila MENDOSA. Operations Tech of Pap Smear Results. In: Tomasa BS, Rashid SIERRA, tremayne musa. The Pap Smear. [place]: Jalil, 2002: 71-77. Specimen (Source) Anatomical Collection Method Collection Time Re ceived Time Location / / Volume Laterality 03/04/2018 11:09 AM EDT Josy Van MD PATHOLOGY/CYTOLOGY ORDERABLE S Performing Organization Address City/[facility]/[place] [address] DIRECTOR OF TAX SERVICES Cytology Interpretation (03/04/2018 11:09 AM EDT) [facility] [employer] Method Time Signature [employer] Picker Cytology NILM [facility] LABORATORY Comment: Parts Picker Cytology Final Report Acces anton: [id number] Endocervical Component Present [facility] Specimen Anatomical Collection Method Collection Time Receive d Time (Source) Location / / Volume Laterality AP Specimen 03/04/2018 11:09 03/15/2018 AM EDT 11:38 AM EDT Josy Van MD PATHOLOGY/CYTOLOGY ORDERABLE S Performing Organization Address City/[facility]/[place] [address] HPV (03/04/2018 11:09 AM EDT) [facility] [employer] Method Time Signature HPV 16 NEGATIVE NEGATIVE [facility]ORY HPV 18 NEGATIVE NEGATIVE [facility] HPV Other HR NEGATIVE NEGATIVE [facility] HPV See Comment [facility] Interpretation [facility] Comment: NEGATIVE for high-risk HPV *. * Testing negative for high risk HPV jefferson ns that the specimen is negative for the following 14 types tested: ??types 1 6, 18, 31, 33, 35, 39, 45, 51, 52, 56, 58, 59, 66, and 68. ??The test is not in tended to detect low risk HPV types. Charlie Fransisco HPV test Specimen: HPV Testing - Cytology Liquid Based Prep Specimen Anatomical Collection Method Collection Time Receive d Time (Source) Location / / Volume Laterality Cervical swab 03/04/2018 11:09 03/04/2018 4:51 (specimen) AM EDT PM EDT Resulting Agency Comment Spec In Lab Josy Van MD PATHOLOGY/CYTOLOGY ORDERABLE S Performing Organization Address City/[facility]/[place] [address] Cytopathology Gynecological (03/04/2018 11:09 AM EDT) Specimen Anatomical Collection Method Collection Time Receive d Time (Source) Location / / Volume Laterality AP Specimen 03/04/2018 11:09 03/04/2018 4:50 AM EDT PM EDT Narrative [facility] LABORAT ORY - 03/04/2018 4:50 PM EDT Specimen requisition ordered. ??Separate Pathology report to follow Resulting Agency Comment Spec In Lab Josy Van MD PATHOLOGY/CYTOLOGY ORDERABLE S Performing Organization Address City/State/ZIP [facility] [place] [address] documented in this encounter Visit Diagnoses Diagnosis Adnexal mass Other specified symptom associated with female genital organs Ovarian mass Unspecified noninflammatory disorder of ovary, fallopian tube, and broad ligament documented in this encounter Care Teams Marketing Community Liaison Relationship Specialty Start Date End Date Boogie Torres MD PCP - General Family Medicine 02/12/18 [place] [id number] documented as of this encounter
--- OUTSIDE RECORDS SUMMARY | 2022-07-17 01:54 | XMS_ITS | Encounter Summary ---
:1975 [place] [address] Care Team Providers Name Role Phone Boogie [...] Expiration Date Visits Requ ested Visits Authorized [id number] 1 1 Encounter Details Date Type Department Care Team Description 03/30/2018 Surgery Main Operating Room Nohemy Van, @EXPLORATORY [facility] LAPAROTOMY, [facility] WITH/WITHOUT BIOPSY(S) [facility] ([facility]VU 12.54) [facility] [place] [address] [place], [place] [id number] [phone] (Wo rk) Social History Tobacco Use Types Packs/Day Years Used Date Never Smoker Smokeless Tobacco: Never Used Alcohol Use Standard Drinks/Week Comments No 0 (1 standard drink = 0.6 oz pure alcoho l) Sex Assigned at Date Recorded Not on file documented as of this encounter Last Filed Vital Signs Vital Sign Reading Time Taken Comments Blood Pressure 134/100 03/30/2018 8:31 AM EDT Pulse 121 03/30/2018 8:31 AM EDT Temperature 36.4 ??C (97.5 ??F) 03/30/2018 8:31 AM EDT Respiratory Rate 20 03/30/2018 8:31 AM EDT Oxygen Saturation - - Inhaled Oxygen Concentration - - Weight - - Height - - Body Mass Index - - documented in this encounter Discharge Summaries Akila Gregorio MD - 04/03/2018 12:29 PM EDT Images from the original note were not included. Discharge Summary Patient Name: Sara Morton Patient Age: 42 y.o. Language: Eritrean Race: White Ethnicity: Not nor Admit date: 03/30/2018 Discharge date and time: 04/03/2018 Attending Physician: Nohemy Van MD Discharge Physician: Stella Prather MD Follow-up Recommendations for Providers: -Follow-up with Dr. Van on 04/22/18 at 9:00AM Inpatient Provider Contact Information: Dr. Nohemy Van, [facility] Gynecologic Oncology, Discharge Diagnoses (Hospital Problems) [...] menses ~q 30 days (LMP 03/04/2018). CA-125 618: 45 She presents for definitive diagnosis and management. Hospital Course: Sara Morton was admitted through Same Day Surgery and underwent the above procedures without complication. EBL was 100mL. Findings were notable for: 1. > 30 cm right adnexal mass that extended to the level of the xiphoid process 2. Frozen section: ovarian mucinous cystic neoplasm, at least borderline tumor (2 patient registration representative sections). No evidence of malignancy in [...] cystic neoplasm, at least borderline tumor (2 patient registration representative sections). Pending Studies and Lab Data: [...] PATIENT DISCHARGE INSTRUCTIONS Gynecologic Oncology phone number: [phone] Call your doctor if you develop: --A [...] AM Nohemy Van MD Gynecology Oncology at [place] [phone] Discharge References/Attachments None Provider Contact Information: Boogie Torres MD [phone] documented in this encounter Discharge Instructions Patient InstructionsAkila Gregorio MD - 03/30/2018 10:02 AM EDT Images from the original note were not included. PATIENT DISCHARGE INSTRUCTIONS Gynecologic Oncology phone number: [phone] Call your doctor if you develop: --A [...] Procedure(s) with comments: @EXPLORATORY LAPAROTOMY, WITH/WITHOUT BIOPSY(S) ([facility]VU 12.54) - RESEARCH BIOBANK @SALPINGO-OOPHORECTOMY, UNILATERAL [facility] AXEL [facility] Pertinent Medications: Continuous Infusions Bupivacaine [...] concerns. Mark Kimball MD 04/02/2018 Pager # [phone] Stella Prather MD - 04/02/2018 7:06 AM [...] represent overall deconditioning. Stella Prather MD Nikia Saavedra RN - 04/01/2018 12:09 PM EDT Office of Care Management Initial Assessment Nikia Saavedra RN reviewed record and discussed patient with Care Team. Source of Information: Patient and patient's boyfriend-Refugio Introduced self/reviewed role; services accepted. Reason for [...] Partner would be surrogate decision maker per [place] surrogate decision making law. Any patient receiving care at [facility] must abide by [place] law. The hierarchy for surrogate decision making [...] (i) The agent with financial power of staff attorney or a conservator appointed in accordance [...] paying for prescription medications. Primary Care Provider: Bogoie Torres MD [phone] Patient/Caregiver Goals of Treatment: To get better [...] of care planning. Nikia Saavedra RN Pager: [phone] Boogie Monson MD - 04/01/2018 9:30 AM [...] Procedure(s) with comments: @EXPLORATORY LAPAROTOMY, WITH/WITHOUT BIOPSY(S) ([facility] 12.54) - RESEARCH BIOBANK @SALPINGO-OOPHORECTOMY, UNILATERAL OR AXEL ([facility] 12.16) Pertinent Medications: Continuous Infusions Bupivacaine 1/8 [...] notes. JUAN LIN RN 04/01/2018 Pager # [phone] I performed the above scribed service and agree with the accuracy of the note. INDERT Stella Prather MD - 04/01/2018 6:22 AM EDT Images [...] place Laboratory (Last 24 Hours): Recent Labs 03/31/18205603/31/18173703/31/18336 WBC 7.8 5.5 10.1* HGB 11.1* 11.1* 10.3* HCT 34.6* 34.3* 31.8* PLATELET 239 209 258 Recent Labs 06/28/18 1738 06/28/18 0337 NA 137 138 K 3.3* 4.1 [...] potential hollow viscus injury. Discussed with vice president, John Shipley, who stated that amount of [...] with them as documented. Stella Prather MD Brandon, Mario Clay MD - 03/31/2018 11:54 AM [...] Procedure(s) with comments: @EXPLORATORY LAPAROTOMY, WITH/WITHOUT BIOPSY(S) ([facility] - RESEARCH BIOBANK @SALPINGO-OOPHORECTOMY, UNILATERAL OR AXEL ([facility]) Pertinent Medications: Continuous Infusions Bupivacaine [...] notes. JUAN LIN RN 03/31/2018 Pager # [phone] Test Bore Helper ([facility]) Seen on daily rounds. I performed the [...] cystic neoplasm, at least borderline tumor (2 patient registration representative sections). No evidence of malignancy in [...] require inpatient hospitalization. AKILA GREGORIO MD 03/30/2018 Sites, Mario Clay MD - 03/30/2018 3:04 PM [...] MD - 03/30/2018 8:25 AM EDT Inpatient ECOLOGY PROFESSOR - Admission Interval Note I have reviewed [...] continue to monitor. PLAN MOVING FORWARD: Encourage ambulation/[facility]. Monitor labs, VS, I/O. Promote BM. Continue [...] (Interventions Implemented as Appropriate) 03/30/18 1500 03/30/18 2124 Individualization Patient Specific Preferences -- None at [...] toward outcome Consult Note - Rosanna Amaya, [facility] - 04/02/2018 2:39 PM EDT Clinical Pharmacist Note-Vanc Sara Morton [id number] 1975 Sara Morton is a 42 y.o. [...] have. Alternately, during off-hours you may call [phone] to contact a pharmacist. ROSANNA AMAYA RPH Pager [phone] Plan of Care - Meghan Rivero RN [...] care overnight. Denies nausea. Afebrile. Remains tachy [id number]. Pain well controlled with epidural, toradol, tylenol. [...] Interventions Self-Care Promotion -- independence encouraged -- Hannah Fall Risk History of Falling -- -- [...] (Interventions Implemented as Appropriate) 03/30/18 1500 03/30/18 1730 Discharge Needs Assessment Concerns To Be Addressed [...] all four extremities spontaneously Labs: Recent Labs 03/31/18205603/31/18173703/31/18336 WBC 7.8 5.5 10.1* HGB 11.1* 11.1* 10.3* HCT 34.6* 34.3* 31.8* PLATELET 239 209 258 Recent Labs 03/31/18173703/31/18 033 NA 137 138 K 3.3* 4.1 CL 102 105 CO2 23 21* BUN 11 10 CREATININE 0.77 0.75 GLUCOSE 127 121 CALCIUM 8.0* 8.0* MAGNESIUM 0.62* 0.71 A/P: Sara Morton is a 42 [...] PT/OT, Full Code Dakota Aguiar, MS4 Pager [phone] Plan of Care - Michelet Cottrell, RN - 04/01/2018 2:34 AM EDT Problem: [...] for tachycardia, fever, and respiratory rate around 2045. BP soft, but stable. Lactate drawn; 1.4 [...] EVALUATION NOTE: OUTCOME SUMMARY: Pts midline incision ELECTRONIC ASSEMBLY, some serosanguinous blood noted on lower steri [...] PT/OT, Full Code Dakota Aguiar, MS4 Pager [phone] Plan of Care - Michelet Cottrell RN [...] Review Outcome: Ongoing (Interventions Implemented as Appropriate) 03/30/181733 Coping/Psychosocial Plan Of Care Reviewed With patient;family [...] CPG GOAL OUTCOME EVALUATION: Op Note - Akila Gregorio MD - 03/30/2018 2:36 PM EDT [facility] Operative Note ?? Patient Name: Sara Morton : [id number] MR#: [id number] ?? Case Date: 03/30/2018 ?? Surgeon: Surgeon(s) and Role: * Nohemy Van MD - Primary * Akila Gregorio MD ?? Preoperative diagnosis: OVARIAN MASS ?? Postoperative diagnosis: OVARIAN MASS ?? Procedure(s): @EXPLORATORY LAPAROTOMY, WITH/WITHOUT BIOPSY(S) [facility] @SALPINGO-OOPHORECTOMY, UNILATERAL OR AXEL ([facility]) Exploratory laparotomy with bilateral salpingo-oophorectomy, omental biopsy Anesthesia: General ?? Findings: 1. > 30 cm right adnexal mass that extended to the level of the xiphoid process 2. Frozen section: ovarian mucinous cystic neoplasm, at least borderline tumor (2 patient registration representative sections). No evidence of malignancy in [...] need to include opening and closing). NOHEMY VAN MD 04/09/2018 Brief Op Note - Akila Gregorio MD - 03/30/2018 1:09 PM EDT Brief Operative Note Patient Name: Sara Morton : [id number] MR#: [id number] Case Date: 03/30/2018 Surgeon: Surgeon(s) and Role: * Nohemy Van MD - Primary * Akila Gregorio MD Preoperative diagnosis: OVARIAN MASS Postoperative diagnosis: OVARIAN MASS Procedure(s): @EXPLORATORY LAPAROTOMY, WITH/WITHOUT BIOPSY(S) ([facility] 12.54) @SALPINGO-OOPHORECTOMY, UNILATERAL OR AXEL ([facility] 12.16) Anesthesia: General Findings: 1. > 30 cm right adnexal mass that extended to the level of the xiphoid process 2. Frozen section: ovarian mucinous cystic neoplasm, at least borderline tumor (2 patient registration representative sections). No evidence of malignancy in omental biopsy Complications: none Estimated Blood Loss: 100 mL Specimens removed during surgery: Order Name Source Comment Collection Info Order Time SPECIMEN TO PATHOLOGY Pager #[phone] OR [phone] OVARIAN MASS Right Adnexa excision YES, Please perform frozen section No 03/30/2018 10:46 AM Number of tissue samples (in container) 1 Time specimen removed from patient: 10:45 AM Biospecimen to store? Yes Study details (PI/Title/CPHS): Laird / T2M2 / [id number] / [id number] / [employer] SUPERVISOR Specimens will be processed up to the point of stabilization and coded. Consent or waiver confirmation to follow. After 60 days, without confirmation, we reserve the right to deidentify. Accept CYTOPATHOLOGY NON-GYNECOLOGICAL OR [phone] 03/30/2018 10:49 AM Pertinent clinical data and significant therapy: OVARIAN MASS Clinical impression: Ascites Procedure Type: Other (please specify in comments) Sample Type: Other, add description and source of specimen in comments Description and source of specimen: Ascites SPECIMEN TO PATHOLOGY Pager [phone] OR [phone] OVARIAN MASS Omental biopsy biopsy YES, Please perform frozen section No 03/30/2018 11:09 AM Number of tissue samples (in container) 1 Time specimen removed from patient: 11:08 AM Biospecimen to store? Yes Study details (PI/Title/CPHS): Laird / T2M2 / [id number] / [id number] / [employer]ILITY SUPERVISOR Specimens will be processed up to the [...] Procedure Name Priority Date/Time Associated Comments Diagnosis CONDITIONING COACH SCAN 04/04/2018 12:00 Res ults for this [...] PM Results for this SEND TO LAB ([facility] EDT proce kourtney are in the results section. BLOOD CULTURE [...] procedure are i n the results section. NON-BOAT AND PLANT UTILITY SUPERVISOR FINAL REPORT Routine 03/30/2018 10:49 Res ults [...] documented in this encounter Results SCAN DOC: CONDITIONING COACH (04/04/2018 12:00 AM EDT) Narrative 04/04/2018 12:00 AM EDT This result has an attachment that is no t available. Ordered by an unspecified provider. Scanning Provider MEDIA MGR SCAN EXT ORDR/RSLT Vancomycin, trough (04/02/2018 11:56 AM EDT) P athologist Signature Vanc Trough 19.1 mg/L [facility] Comment: Therapeutic range for complicated infect ions such as bacteremia, endocarditis, osteomyelitis, meningitis, and hospital- acquired pneumonia caused by S. aureus: 15-20 mg/L Therapeutic range for other indications: 10-15 mg/L Toxic: >20 mg/L Reference: Vancomycin Therapeutic Monitoring: Revie w and Recommendations from the ASHP, IDSA and SIDP Task Force. ??Am J Health- Syst Pharm. 2009; 66:82-98 Specimen Anatomical Collection Method Collection Time Receive d Time (Source) Location / / Volume Laterality Blood specimen 04/02/2018 11:56 8 (specimen) AM EDT 12:00 PM EDT Resulting Agency Comment Spec In Lab Nohemy Van MD CHEMISTRY ORDERABLES Performing Organization Address City/State/[place] [address] (ABNORMAL) Differential, Automated (04/02/2018 3:16 AM EDT) [facility] Method Time Signature Neutrophils % 83.6 % [facility] Neutr Abs (ANC) 7.19 (H) 1.70 - [facility] 6.10 [facility] x10(3)/[facility] LABORATORY Lymphocytes % 11.0 % [facility] Lymphocytes Abs 1.0 0.9 - 3.2 [facility] x10(3)/[facility] LABORATORY Monocytes % 3.1 % [facility] Monocyte Abs 0.3 0.3 - 0.9 [facility] x10(3)/[facility] LABORATORY Eosinophils % 1.5 % [facility] Eosinophils Abs 0.1 0.0 - 0.4 [facility] x10(3)/[facility] LABORATORY Basophils % 0.3 % [facility] Basophils Abs 0.0 0.0 - 0.1 [facility] x10(3)/[facility] LABORATORY Immature Gran % 0.50 % [facility] Comment: Immature granulocytes(IG's)percentage an d absolute count will include metamyelocytes, myelocytes, and promyelo cytes. Blood smears from CBCs yielding IG's will be scanned manually for concor dance. If this scan disagrees with the automated IG or if promyelocytes are not ed, a manual differential will be performed. Nahed Gran Abs 0.04 0.00 - 0.04 x10(3)/[facility] LABORATORY Specimen Anatomical Collection Method Collection Time Receive d Time (Source) Location / / Volume Laterality Blood specimen 04/02/2018 3:16 AM 018 3:35 (specimen) EDT AM EDT Resulting Agency Comment Spec In Lab Akila Gregorio MD HEMATOLOGY ORDERABLES Performing Organization Address City/State/[place] [address] (ABNORMAL) Hemogram (04/02/2018 3:16 AM EDT) Analysis Performed At Patho logist Time Signature WBC 8.6 4.0 - 9.5 [facility] LABORATORY RBC 3.97 (L) 4.00 - [facility] RAM[facility]IS 5.21 [facility] x10(6)/[facility] LABORATORY Hemoglobin 10.1 (L) 11.7 - [facility] 15.5 gm/dL [facility] Hematocrit 32.3 (L) 35.7 - NICK LU[facility] 45.8 % [facility] MCV 81.4 (L) 82.6 - [facility] 94.4 [facility] LABORATORY MCH 25.4 (L) 27.1 - [facility] 32.0 pg [facility] MCHC 31.3 (L) 31.7 - [facility] 35.0 gm/dL [facility] Platelets 263 145 - 357 [facility] x10(3)/[facility] LABORATORY RDWSD 47.4 (H) 37.0 - [place] [place] 46.0 [facility] LABORATORY RDWCV 15.9 (H) 11.5 - [facility] 14.1 % [facility] MPV 10.4 7.6 - 12.9 [facility] LABORATORY nRBC % Auto 0.0 % [facility] nRBC Abs Auto 0.000 0.000 - [place] 0.000 [facility] x10(3)/[facility] LABORATORY Specimen Anatomical Collection Method Collection Time Receive d Time (Source) Location / / Volume Laterality Blood specimen 04/02/2018 3:16 AM 018 3:35 (specimen) EDT AM EDT Resulting Agency Comment Spec In Lab Akila Gregorio MD HEMATOLOGY ORDERABLES Performing Organization Address City/State/[place] [address] Urine culture Clean Catch Urine (04/01/2018 12:36 PM EDT) Patholo gist Method Time Signature Urine Culture No growth NICK SMITH (Less than [facility] 1,000 [facility] cfu/ml). LABORATORY Specimen Anatomical Collection Method Collection Time Receive d Time (Source) Location / / Volume Laterality First stream 04/01/2018 12:36 04/01/2018 1:14 urine specimen PM EDT PM EDT (specimen) Resulting Agency Comment Spec In Lab Nohemy Van MD MICROBIOLOGY - GENERAL ORDER CLAU Performing Organization Address City/[facility]/ZIP Code Phon e Number [address] Urine Hold (04/01/2018 12:35 PM EDT) P athologist Signature Urine Hold Sample in [facility] LABORATORY Specimen Anatomical Collection Method Collection Time Receive d Time (Source) Location / / Volume Laterality Urine specimen Urine / Unknown 04/01/2018 12:35 2017 (specimen) PM EDT 12:50 PM EDT Phylicia Tejada MD URINE ORDERABLES Performing Organization Address City/[facility]/[place] [address] (ABNORMAL) Urinalysis without microscopic (04/01/2018 12:35 PM EDT) Patholo gist Method Time Signature Glucose UA Negative Negative [facility] mg/dL [facility] Protein UA Negative Negative [facility] mg/dL [facility] Bilirubin UA Negative Negative [facility] mg/dL [facility] Comment: Clinical correlation required for positi ve Urine Bilirubin results as false positive may occur with some drugs and d rug related products. If a false positive is suspected a serum total bili silverio should be considered if clinically indicated. Urobilinogen UA Normal Normal mg/dL [facility] pH UA 5.0 5.0 - 8.0 [facility] Blood UA Large (A) Negative mg/dL [facility] Ketones UA Negative Negative mg/dL [facility] Nitrite UA Negative Negative [facility] Leukocytes UA Negative Negative [facility] LABORATORY Appearance UA Hazy (A) Clear [facility] LABORATORY Spec [place] UA 1.019 1.002 - 1.030 [facility] LABORATORY Color UA Yellow Yellow [facility] Specimen Anatomical Collection Method Collection Time Receive d Time (Source) Location / / Volume Laterality Urine specimen 04/01/2018 12:35 8 (specimen) PM EDT 12:49 PM EDT Resulting Agency Comment Spec In Lab Nohemy Van MD URINE ORDERABLES Performing Organization Address City/State/ZIP Code Phon e Number [place] [id number]OSP[address] LAB[address] Drive CT Abdomen & Pelvis [...] the abdomen and pelvis. Nohemy Van MD IM CT ORDERABLES (ABNORMAL) Differential, Automated (04/01/2018 11:12 AM EDT) [facility] Method Time Signature Neutrophils % 87.9 % [facility] Neutr Abs (ANC) 5.05 1.70 - [facility] 6.10 [facility] x10(3)/[facility] LABORATORY Lymphocytes % 8.7 % [facility] Lymphocytes Abs 0.5 (L) 0.9 - 3.2 [facility] x10(3)/[facility] LABORATORY Monocytes % 2.8 % [facility] Monocyte Abs 0.2 (L) 0.3 - 0.9 [facility] x10(3)/[facility] LABORATORY Eosinophils % 0.2 % [facility] Eosinophils Abs 0.0 0.0 - 0.4 [facility] x10(3)/[facility] LABORATORY Basophils % 0.2 % [facility] Basophils Abs 0.0 0.0 - 0.1 [facility] x10(3)/[facility] LABORATORY Immature Gran % 0.20 % [facility] Comment: Immature granulocytes(IG's)percentage an d absolute count will include metamyelocytes, myelocytes, and promyelo cytes. Blood smears from CBCs yielding IG's will be scanned manually for concor dance. If this scan disagrees with the automated IG or if promyelocytes are not ed, a manual differential will be performed. Nahed Gran Abs 0.01 0.00 - 0.04 x10(3)/[facility] LABORATORY Specimen Anatomical Collection Method Collection Time Receive d Time (Source) Location / / Volume Laterality Blood specimen 04/01/2018 11:12 8 (specimen) AM EDT 11:28 AM EDT Resulting Agency Comment Spec In Lab Zakia KEITH HEMATOLOGY ORDERABLES Performing Organization Address City/State/[place] [address] (ABNORMAL) Hemogram (04/01/2018 11:12 AM EDT) Analysis Performed At Patho logist Time Signature WBC 5.7 4.0 - 9.5 [facility] x10(3)/[facility] LABORATORY RBC 4.34 4.00 - [facility] 5.21 [facility] x10(6)/[facility] LABORATORY Hemoglobin 11.4 (L) 11.7 - [facility] 15.5 gm/dL [facility] Hematocrit 35.1 (L) 35.7 - [facility] 45.8 % [facility] MCV 80.9 (L) 82.6 - [facility] 94.4 fL [facility] MCH 26.3 (L) 27.1 - [facility] 32.0 pg [facility] MCHC 32.5 31.7 - NICK SMITH 35.0 gm/dL [facility] Platelets 267 145 - 357 [facility] x10(3)/[facility] LABORATORY RDWSD 46.9 (H) 37.0 - [facility] 46.0 [facility] LABORATORY RDWCV 15.9 (H) 11.5 - [facility] 14.1 % [facility] MPV 10.7 7.6 - 12.9 [facility] LABORATORY nRBC % Auto 0.0 % [facility] nRBC Abs Auto 0.000 0.000 - [facility] 0.[facility] x10(3)/[facility] LABORATORY Specimen Anatomical Collection Method Collection Time Receive d Time (Source) Location / / Volume Laterality Blood specimen 04/01/2018 11:12 201 8 (specimen) AM EDT 11:28 AM EDT Resulting Agency Comment Spec In Lab Zakia KEITH HEMATOLOGY ORDERABLES Performing Organization Address City/[facility]/ZIP Code Phon e Number [address] Magnesium (04/01/2018 8:18 AM EDT) P athologist Signature Magnesium 0.71 0.69 - 1.07 [facility] mmol/L [facility] Specimen Anatomical Collection Method Collection Time Receive d Time (Source) Location / / Volume Laterality Blood specimen 04/01/2018 8:18 AM 018 8:39 (specimen) EDT AM EDT Resulting Agency Comment Spec In Lab Nohemy Van MD CHEMISTRY ORDERABLES Performing Organization Address City/State/ZIP Code Phon e Number [address] (ABNORMAL) Basic Metabolic Panel (non-fasting) (04/01/2018 8:18 AM EDT) P athologist Signature Glucose Lvl 124 65 - 199 [facility] mg/dL [facility] Comment: Diabetes: >=200 mg/dL plus symp toms BUN 9 8 - 18 mg/dL [facility] LABOR[facility]ORY Creatinine 0.85 0.70 - 1.20 mg/dL [facility] Sodium 138 135 - 145 mmol/L [facility] Potassium 3.7 3.5 - 5.0 mmol/L [facility] Comment: Please note: ??Patients with WBC >100,00 0 may have falsely elevated Potassium levels. ??For accurate Potassium quantif ication in these patients send serum separator tube (gold top) for subsequent determinations. ??Contact the Clinical Chemistry Laboratory if there are any qu estions. Chloride 104 98 - 107 mmol/L [facility] CO2 20 (L) 22 - 31 mmol/L [facility] [facility] Anion Gap 14 5 - 15 mmol/L [facility] Calcium 8.1 (L) 8.5 - 10.5 mg/dL [facility] Estimated GFR 85 >=60 mL/min/1.73 m?? [facility] Comment: The eGFR was calculated using the CKD-EP I equation. As with all creatinine based estimates of kidney function, eGFR values calculated with the CKD-EPI equation are not accurate in patients wi th acute kidney failure, extremes of body mass or the acutely ill. http://[employer]/Idooblenkdep http://[employer]/[facility] eGFR 98 >=60 mL/min/1.73 m?? [facility] Comment: The eGFR was calculated using the CKD-EP I equation. As with all creatinine based estimates of kidney function, eGFR values calculated with the CKD-EPI equation are not accurate in patients wi th acute kidney failure, extremes of body mass or the acutely ill. http://[employer]/DHnkdep http://[employer]/[facility] PR[facility]f Specimen Anatomical Collection Method Collection Time Receive d Time (Source) Location / / Volume Laterality Blood specimen 04/01/2018 8:18 AM 018 8:39 (specimen) EDT AM EDT Resulting Agency Comment Spec In Lab Nohemy Van MD CHEMISTRY ORDERABLES Performing Organization Address City/State/[place] [address] XR Chest PA or [...] (ABNORMAL) Differential, Automated (03/31/2018 8:57 PM EDT) [facility] Method Time Signature Neutrophils % 88.1 % [facility] Neutr Abs (ANC) 6.87 (H) 1.70 - [facility] 6.10 [facility] x10(3)/[facility] L LABORATORY Lymphocytes % 7.3 % [facility] Lymphocytes Abs 0.6 (L) 0.9 - 3.2 [facility] x10(3)/[facility] LABORATORY Monocytes % 3.8 % [facility] Monocyte Abs 0.3 0.3 - 0.9 [facility] x10(3)/[facility] LABORATORY Eosinophils % 0.1 % [facility] Eosinophils Abs 0.0 0.0 - 0.4 [facility] x10(3)/[facility] LABORATORY Basophils % 0.3 % [facility] Basophils Abs 0.0 0.0 - 0.1 [facility] x10(3)/[facility] LABORATORY Immature Gran % 0.40 % [facility] Comment: Immature granulocytes(IG's)percentage an d absolute count will include metamyelocytes, myelocytes, and promyelo cytes. Blood smears from CBCs yielding IG's will be scanned manually for concor dance. If this scan disagrees with the automated IG or if promyelocytes are not ed, a manual differential will be performed. Nahed Gran Abs 0.03 0.00 - 0.04 x10(3)/[facility] Specimen Anatomical Collection Method Collection Time Receive d Time (Source) Location / / Volume Laterality Blood specimen 03/31/2018 8:57 PM 018 9:03 (specimen) EDT PM EDT Resulting Agency Comment Spec In Lab Phylicia Tejada MD HEMATOLOGY ORDERABLES Performing Organization Address City/State/[place] [address] (ABNORMAL) Hemogram (03/31/2018 8:57 PM EDT) Analysis Performed At Patho logist Time Signature WBC 7.8 4.0 - 9.5 [facility] x10(3)/[facility] LABORATORY RBC 4.31 4.00 - [facility] 5.21 [facility] x10(6)/[facility] LABORATORY Hemoglobin 11.1 (L) 11.7 - [facility] 15.5 gm/dL [facility] Hematocrit 34.6 (L) 35.7 - NICK LUIS 45.8 % [facility] MCV 80.3 (L) 82.6 - NICK RAMLUIS 94.4 [facility] LABORATORY MCH 25.8 (L) 27.1 - NICK RAMLUIS 32.0 pg [facility] MCHC 32.1 31.7 - NICK RAMLUIS 35.0 gm/dL [facility] Platelets 239 145 - 357 NICK RAMLUIS x10(3)/[facility] LABORATORY RDWSD 45.5 37.0 - NICK RAMLUIS 46.0 [facility] LABORATORY RDWCV 15.5 (H) 11.5 - N[facility] RAMLUIS 14.1 % [facility] MPV 10.7 7.6 - 12.9 NICK GAL[place]OCK [facility] LABORATORY nRBC % Auto 0.0 % [facility] nRBC Abs Auto 0.000 0.000 - NICK RAMLUIS 0.000 [facility] x10(3)/[facility] LABORATORY Specimen Anatomical Collection Method Collection Time Receive d Time (Source) Location / / Volume Laterality Blood specimen 03/31/2018 8:57 PM 018 9:03 (specimen) EDT PM EDT Resulting Agency Comment Spec In Lab Phylicia Tejada MD HEMATOLOGY ORDERABLES Performing Organization Address City/State/[place] [address] Blood culture (03/31/2018 8:57 PM EDT) [facility] gist Method Time Signature Blood Culture No growth NICK SMITH at 5 days. [facility] Specimen Anatomical Collection Method Collection Time Receive d Time (Source) Location / / Volume Laterality Blood specimen 03/31/2018 8:57 PM 018 (specimen) EDT 10:31 PM EDT Comment: LH.BRDRAW BLOOD CULTURES BEFORE ADMINISTERING ANTIBIOTICS Resulting Agency Comment Spec In Lab Nohemy Van MD MICROBIOLOGY - BLOOD ORDERAB LES Performing Organization Address City/State/[place] [address] Lactate, whole blood, send to lab (Leb/CGP) (03/31/2018 8:57 PM EDT) P athologist Signature Lactate WB 1.4 0.5 - 2.2 [facility] mmol/L [facility] Specimen Anatomical Collection Method Collection Time Receive d Time (Source) Location / / Volume Laterality Blood specimen 03/31/2018 8:57 PM 018 9:03 (specimen) EDT PM EDT Resulting Agency Comment Spec In Lab Nohemy Van MD CHEMISTRY ORDERABLES Performing Organization Address City/[facility]/ZIP [facility] Phon e Number [address] Blood culture (03/31/2018 8:55 PM EDT) [facility] Method Time Signature Blood Culture No growth NICK LUIS at 5 days. [facility] Specimen Anatomical Collection Method Collection Time Receive d Time (Source) Location / / Volume Laterality Blood specimen 03/31/2018 8:55 PM 018 (specimen) EDT 10:42 PM EDT Comment: LFA.BRDRAW BLOOD CULTURES BEFOR E ADMINISTERING ANTIBIOTICS Resulting Agency Comment Spec In Lab Nohemy Van MD MICROBIOLOGY - BLOOD ORDERAB LES Performing Organization Address City/[facility]/ZIP [facility] Phon e Number [address] Differential, Manual (03/31/2018 5:38 PM EDT) [facility] Method Time Signature Neutrophil % 83 % [facility] Lymphocyte % 12 % [facility] Monocyte % 3 % [facility] Eosinophil % 1 % [facility] Basophil % 0 % [facility] Metamyelo % 1 % [facility] Tot Diff Cell Ct 100 [facility] Plat Estimate Normal [facility] RBC Morphology Abnormal [facility] Hypochromia Moderate [facility] Specimen Anatomical Collection Method Collection Time Receive d Time (Source) Location / / Volume Laterality Blood specimen Venous Draw / 03/31/2018 5:38 PM 2017 5:48 (specimen) Unknown EDT PM EDT Resulting Agency Comment Spec In Lab Darnell Elaine MD HEMATOLOGY ORDERABLES Performing Organization Address City/State/[place] [address] TSH (03/31/2018 5:38 PM EDT) athologist Signature TSH 1.19 0.27 - 4.20 [facility] mlU/ML [facility] Specimen Anatomical Collection Method Collection Time Receive d Time (Source) Location / / Volume Laterality Blood specimen Venous Draw / 03/31/2018 5:38 PM 2017 5:48 (specimen) Unknown EDT PM EDT Resulting Agency Comment Spec In Lab Phylicia Tejada MD CHEMISTRY ORDERABLES Performing Organization Address City/[facility]/[place] [address] (ABNORMAL) Magnesium (03/31/2018 5:38 PM EDT) athologist [facility] Magnesium 0.62 (L) 0.69 - 1.07 [facility] mmol/L [facility] Specimen Anatomical Collection Method Collection Time Receive d Time (Source) Location / / Volume Laterality Blood specimen 03/31/2018 5:38 PM 018 5:48 (specimen) EDT PM EDT Resulting Agency Comment Spec In Lab Nohemy Van MD CHEMISTRY ORDERABLES Performing Organization Address City/[facility]/[place] [address] (ABNORMAL) Basic Metabolic Panel (non-fasting) (03/31/2018 5:38 PM EDT) athologist Signature Glucose Lvl 127 65 - 199 [facility] mg/dL [facility] Comment: Diabetes: >=200 mg/dL plus symp toms BUN 11 8 - 18 mg/dL [facility] Creatinine 0.77 0.70 - 1.20 mg/dL [facility] Sodium 137 135 - 145 mmol/L [facility] Potassium 3.3 (L) 3.5 - 5.0 mmol/L [facility] Comment: Please note: ??Patients with WBC >100,00 0 may have falsely elevated Potassium levels. ??For accurate Potassium quantif ication in these patients send serum separator tube (gold top) for subsequent determinations. ??Contact the Clinical Chemistry Laboratory if there are any qu estions. Chloride 102 98 - 107 mmol/L [facility] CO2 23 22 - 31 mmol/L [facility] Anion Gap 12 5 - 15 mmol/L [facility] Calcium 8.0 (L) 8.5 - 10.5 mg/dL [facility] Estimated GFR 95 >=60 mL/min/1.73 m?? [facility] Comment: The eGFR was calculated using the CKD-EP I equation. As with all creatinine based estimates of kidney function, eGFR values calculated with the CKD-EPI equation are not accurate in patients wi th acute kidney failure, extremes of body mass or the acutely ill. http://[employer]/Guerrilla RFep http://[employer]/Idooblenkf eGFR 110 >=60 mL/min/1.73 m?? [facility] Comment: The eGFR was calculated using the CKD-EP I equation. As with all creatinine based estimates of kidney function, eGFR values calculated with the CKD-EPI equation are not accurate in patients wi th acute kidney failure, extremes of body mass or the acutely ill. http://[employer]/Idooblenkdep http://[employer]/Idooblenkf Specimen Anatomical Collection Method Collection Time Receive d Time (Source) Location / / Volume Laterality Blood specimen 03/31/2018 5:38 PM 018 5:48 (specimen) EDT PM EDT Resulting Agency Comment Spec In Lab Nohemy Van MD CHEMISTRY ORDERABLES Performing Organization Address City/State/[place] [address] (ABNORMAL) Differential, Automated (03/31/2018 5:38 PM EDT) [facility] Method Time Signature Neutrophils % 88.7 % [facility] Neutr Abs (ANC) 4.88 1.70 - NICK SMITH 6.10 [facility] x10(3)/[facility] LABORATORY Lymphocytes % 7.5 % [facility] Lymphocytes Abs 0.4 (L) 0.9 - 3.2 [facility] x10(3)/[facility] LABORATORY Monocytes % 3.6 % [facility] Monocyte Abs 0.2 (L) 0.3 - 0.9 [facility] x10(3)/[facility] LABORATORY Eosinophils % 0.0 % [facility] Eosinophils Abs 0.0 0.0 - 0.4 [facility] x10(3)/[facility] LABORATORY Basophils % 0.2 % [facility] Basophils Abs 0.0 0.0 - 0.1 [facility] x10(3)/[facility] LABORATORY Specimen Anatomical Collection Method Collection Time Receive d Time (Source) Location / / Volume Laterality Blood specimen 03/31/2018 5:38 PM 018 5:48 (specimen) EDT PM EDT Resulting Agency Comment Spec In Lab Darnell Elaine MD HEMATOLOGY ORDERABLES Performing Organization Address City/State/[place] [address] (ABNORMAL) Hemogram (03/31/2018 5:38 PM EDT) P athologist Signature WBC 5.5 4.0 - 9.5 [facility] x10(3)/[facility] LABORATORY RBC 4.23 4.00 - [facility] 5.21 [facility] x10(6)/[facility] LABORATORY Hemoglobin 11.1 (L) 11.7 - [facility] 15.[facility] gm/dL [facility] Hematocrit 34.3 (L) 35.7 - NICK LUIS 45.8 % [facility] MCV 81.1 (L) 82.6 - [facility] 94.4 fL [facility] MCH 26.2 (L) 27.1 - NICK LUIS 32.0 pg [facility] MCHC 32.4 31.7 - NICK LUIS 35.0 gm/dL [facility] Platelets 209 145 - 357 [facility] x10(3)/[facility] LABORATORY RDWSD 46.0 37.0 - [facility] 46.0 [facility] LABORATORY RDWCV 15.9 (H) 11.5 - [facility] 14.1 % [facility] MPV 11.4 7.6 - 12.9 [facility] LABORATORY Specimen Anatomical Collection Method Collection Time Receive d Time (Source) Location / / Volume Laterality Blood specimen 03/31/2018 5:38 PM 018 5:48 (specimen) EDT PM EDT Resulting Agency Comment Spec In Lab Darnell Elaine MD HEMATOLOGY ORDERABLES Performing Organization Address City/[facility]/[place] [address] EKG 12 Lead (03/31/2018 4:11 PM EDT) Component Value Ref Range Test Analysis Performed Pathologis t Method Time At Signature Ventricular rate 138 BPM MUSE SYSTEM Atrial Rate 138 BPM MUSE SYSTEM P-R Interval 126 ms MUSE SYSTEM QRS Duration 78 ms MUSE SYSTEM Q-T Interval 252 ms MUSE SYSTEM QTC Calculated 381 ms MUSE SYSTEM (Bezet) Calculated P [place] 28 degrees MUSE SYSTEM Calculated R [place] 2 degrees MUSE SYSTEM Calculated T [place] 20 degrees MUSE SYSTEM INTERPRETATION Sinus tachycardia MUSE SY STEM Otherwise normal ECG No previous ECGs available Confirmed by MD Yahaira, Lore ([id number]) on 04/01/2018 5:28:49 PM Specimen Anatomical Collection Method Collection Time Receive d Time (Source) Location / / Volume Laterality 03/31/2018 4:11 PM 8 5:28 EDT PM EDT Nohemy Van MD ECG ORDERABLES Performing Organization Address City/State/ZIP Code Phon e Number MUSE SYSTEM (ABNORMAL) Differential, Automated (03/31/2018 3:37 AM EDT) Patholo gist Method Time Signature Neutrophils % 81.4 % [facility] Neutr Abs (ANC) 8.19 (H) 1.70 - [facility] 6.10 [facility] x10(3)/[facility] L LABORATORY Lymphocytes % 11.2 % [facility] Lymphocytes Abs 1.1 0.9 - 3.2 [facility] x10(3)/[facility] LABORATORY Monocytes % 6.9 % [facility] Monocyte Abs 0.7 0.3 - 0.9 [facility] x10(3)/[facility] LABORATORY Eosinophils % 0.0 % [facility] Eosinophils Abs 0.0 0.0 - 0.4 [facility] x10(3)/[facility] LABORATORY Basophils % 0.2 % [facility] Basophils Abs 0.0 0.0 - 0.1 [facility] x10(3)/[facility] LABORATORY Immature Gran % 0.30 % [facility] Comment: Immature granulocytes(IG's)percentage an d absolute count will include metamyelocytes, myelocytes, and promyelo cytes. Blood smears from CBCs yielding IG's will be scanned manually for concor dance. If this scan disagrees with the automated IG or if promyelocytes are not ed, a manual differential will be performed. Nahed Gran Abs 0.03 0.00 - 0.04 x10(3)/[facility] LABORATORY Specimen Anatomical Collection Method Collection Time Receive d Time (Source) Location / / Volume Laterality Blood specimen 03/31/2018 3:37 AM 018 4:05 (specimen) EDT AM EDT Resulting Agency Comment Spec In Lab Akila Gregorio MD HEMATOLOGY ORDERABLES Performing Organization Address City/State/[place] [address] (ABNORMAL) Hemogram (03/31/2018 3:37 AM EDT) Analysis Performed At Patho logist Time Signature WBC 10.1 (H) 4.0 - 9.5 [facility] x10(3)/[facility] LABORATORY RBC 4.01 4.00 - [facility] 5.21 [facility] x10(6)/[facility] LABORATORY Hemoglobin 10.3 (L) 11.7 - [facility] 15.5 gm/dL [facility] Hematocrit 31.8 (L) 35.7 - [facility] 45.8 % [facility] MCV 79.3 (L) 82.6 - NICK SMITH 94.4 [facility] LABORATORY MCH 25.7 (L) 27.1 - NICK SMITH 32.0 pg [facility] MCHC 32.4 31.7 - NICK SMITH 35.0 gm/dL [facility] Platelets 258 145 - 357 NICK RAMLUIS x10(3)/[facility] LABORATORY RDWSD 44.6 37.0 - NICK SMITH 46.0 [facility] LABORATORY RDWCV 15.3 (H) 11.5 - NICK SMITH 14.1 % [facility] MPV 10.5 7.6 - 12.9 NICK SMITH [facility] LABORATORY nRBC % Auto 0.0 % [facility] nRBC Abs Auto 0.000 0.000 - NICK SMITH 0.000 [facility] x10(3)/[facility] LABORATORY Specimen Anatomical Collection Method Collection Time Receive d Time (Source) Location / / Volume Laterality Blood specimen 03/31/2018 3:37 AM 018 4:05 (specimen) EDT AM EDT Resulting Agency Comment Spec In Lab Akila Gregorio MD HEMATOLOGY ORDERABLES Performing Organization Address City/State/ZIP Code Phon e Number [address] Magnesium (03/31/2018 3:37 AM EDT) P athologist Signature Magnesium 0.71 0.69 - 1.07 [facility] mmol/L [facility] Specimen Anatomical Collection Method Collection Time Receive d Time (Source) Location / / Volume Laterality Blood specimen 03/31/2018 3:37 AM 018 4:05 (specimen) EDT AM EDT Resulting Agency Comment Spec In Lab Nohemy Van MD CHEMISTRY ORDERABLES Performing Organization Address City/State/ZIP Code Phon e Number [address] (ABNORMAL) Basic Metabolic Panel (non-fasting) (03/31/2018 3:37 AM EDT) P athologist Signature Glucose Lvl 121 65 - 199 [facility] Comment: Diabetes: >=200 mg/dL plus symp toms BUN 10 8 - 18 mg/dL [facility] Creatinine 0.75 0.70 - 1.20 mg/dL [facility] Sodium 138 135 - 145 mmol/L [facility] Potassium 4.1 3.5 - 5.0 mmol/L [facility] Comment: Please note: ??Patients with WBC >100,00 0 may have falsely elevated Potassium levels. ??For accurate Potassium quantif ication in these patients send serum separator tube (gold top) for subsequent determinations. ??Contact the Clinical Chemistry Laboratory if there are any qu estions. Chloride 105 98 - 107 mmol/L [facility] CO2 21 (L) 22 - 31 mmol/L [facility] Anion Gap 12 5 - 15 mmol/L [facility] Calcium 8.0 (L) 8.5 - 10.5 mg/dL [facility] Estimated GFR 98 >=60 mL/min/1.73 m?? [facility] Comment: The eGFR was calculated using the CKD-EP I equation. As with all creatinine based estimates of kidney function, eGFR values calculated with the CKD-EPI equation are not accurate in patients wi th acute kidney failure, extremes of body mass or the acutely ill. http://[employer]/Idooblenkdep http://[employer]/[facility] eGFR 114 >=60 mL/min/1.73 m?? [facility] Comment: The eGFR was calculated using the CKD-EP I equation. As with all creatinine based estimates of kidney function, eGFR values calculated with the CKD-EPI equation are not accurate in patients wi th acute kidney failure, extremes of body mass or the acutely ill. http://[employer]/Idooblenkdep http://[employer]/[facility] Specimen Anatomical Collection Method Collection Time Receive d Time (Source) Location / / Volume Laterality Blood specimen 03/31/2018 3:37 AM 018 4:05 (specimen) EDT AM EDT Resulting Agency Comment Spec In Lab Nohemy Van MD CHEMISTRY ORDERABLES Performing Organization Address City/[facility]/[place] [address] Specimen to Pathology (03/30/2018 11:54 AM EDT) Specimen Anatomical Collection Method Collection Time Receive d Time (Source) Location / / Volume Laterality AP Specimen 03/30/2018 11:54 03/30/2018 AM EDT 11:54 AM EDT Narrative [facility] - 03/30/2018 11:54 AM EDT Specimen requisition ordered. ??Separate Pathology report to follow Nohemy Van MD PATHOLOGY/CYTOLOGY ORDERABLE S Performing Organization Address [facility]/[place] [address] Specimen to Pathology (03/30/2018 11:09 AM EDT) Specimen Anatomical Collection Method Collection Time Receive d Time (Source) Location / / Volume Laterality AP Specimen 03/30/2018 11:09 03/30/2018 AM EDT 11:09 AM EDT Narrative [facility] - 03/30/2018 11:09 AM EDT Specimen requisition ordered. ??Separate Pathology report to follow Nohemy Van MD PATHOLOGY/CYTOLOGY ORDERABLE S Performing Organization Address [facility] [place] [address] Non-Sys Dir Final Report (03/30/2018 10:49 AM EDT) Component Value Ref Test Analysis Performed At [facility] Method Time Signature Non-Sys Dir [id number] ? Location: 1WST; 0118; [facility] Final Report LUIS The signing pathologist has (i) examined the relevant preparation(s) for the [facility] specimen(s) and (ii) rendered or confirmed the diagnosis(es) . HOSPITAL LABORATORY . ? No n-Sys Dir Final DIAGNOSIS Atypical Electronically signed by: ??Moises Brooks MD Verified: ??04/08/2018 ?Cytopathologist Performed at: ??-[facility] Dept. of Pathology, [place], [place] DISCUSSION Ascites: A few clusters of [...] Organization Address City/State/[place] [address] [facility] [address] Cytopathology Non-Gynecological (03/30/2018 10:49 AM EDT) Specimen Anatomical Collection Method Collection Time Receive d Time (Source) Location / / Volume Laterality AP Specimen 03/30/2018 10:49 03/30/2018 AM EDT 11:21 AM EDT Narrative [facility] - 03/30/2018 11:21 AM EDT Specimen requisition ordered. ??Separate Pathology report to follow Resulting Agency Comment Spec In Lab Nohemy Van MD PATHOLOGY/CYTOLOGY ORDERABLE S Performing Organization Address City/State/ZIP Code Phon [place] [address] Surgical Pathology Report (03/30/2018 10:46 AM EDT) Component Value Ref Test Analysis Performed At [facility] gist Range Method Time Signature Surgical [id number] ? Location: 1WST; 0118; A NICK Pathology ALSEA Report The signing pathologist has (i) examined [...] Jhoan Flanagan Verified: ??04/07/2018 ?Pathologist Performed at: ??-[facility] [place], [place], [place] DISCUSSION Scanned slides: [id number] . DISCUSSION [id number] ADDITIONAL STUDIES Formalin-fixed, paraffin-emb edded tissue sections [...] n remnants; (3) fallopian tube; (4-25) additional patient registration representative sections of ovarian neoplasm. (R2 5) B - ??Labeled/Fixative: Omental biopsy, fresh. Quantity/Size: Single, 15.0 x 5.0 x 0.9 cm. Tissue Description: Portion of omental a dipose tissue without masses, areas of induration, or areas of discoloration. Sections/Processing: (1) fro deric section remnant; (2-3) additional patient registration representative sections. (R3) C - ??Labeled/Fixative: Left [...] malignancy (deeper levels ?obtained). - [facility] 03/30/18 11:50 Electronically signed by: ??Jhoan Elaine MD Verified: ??03/30/2018 ?Pathologist Performed at: ??-[facility] [place], [place], [place] This intraoperative consultation should be interpreted as a preliminary diagnosis pending review of the entire specimen and sp ecial studies, if any. 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 - [facility] 03/30/18 11:41 Electronically signed by: ??Jhoan Elaine MD Verified: ??03/30/2018 ?Pathologist Performed at: ??-[facility] [place], [place], [place] This intraoperative consultation should be interpreted as a preliminary diagnosis pending review of the entire specimen and sp ecial studies, if any. Specimen (Source) Anatomical Collection Method Collection Time Re ceived Time Location / / Volume Laterality 03/30/2018 10:46 AM EDT Nohemy Van MD PATHOLOGY/CYTOLOGY ORDERABLE S Performing Organization Address City/State/[place] [address] Specimen to Pathology (03/30/2018 10:46 AM EDT) Specimen Anatomical Collection Method Collection Time Receive d Time (Source) Location / / Volume Laterality AP Specimen 03/30/2018 10:46 03/30/2018 AM EDT 10:46 AM EDT Narrative [facility] - 03/30/2018 10:46 AM EDT Specimen requisition ordered. ??Separate Pathology report to follow Nohemy Van MD PATHOLOGY/CYTOLOGY ORDERABLE S Performing Organization Address City/[facility]/[place] [address] XR Fluoro No Rad <1Hr - OR Use (03/30/2018 9:28 AM EDT) Specimen (Source) Anatomical Location Collection Method / Collectio n Time Received Time / Laterality Volume Narrative RAD - 03/30/2018 9:28 AM EDT This order does not need a radiologist i nterpretation. ?? Nohemy Van MD IMG FLUORO ORDERABLES Performing Organization Address City/[facility]/ZIP Code Phon e Number RAD [place], [place] documented in this encounter Visit Diagnoses Not on filedocumented in this encounter Admitting Diagnoses Diagnosis Ovarian mass Unspecified noninflammatory disorder of ovary, fallopian tube, and broad ligament documented in this encounter Administered Medications Inactive Administered Medications - up to 3 most recent administrations Medication Order MAR Action Action Date Dose Rate Site acetaminophen (TYLENOL) tablet Given 04/03/2018 11:24 AM EDT 650 mg 650 mg 650 mg, Oral, EVERY 6 HOURS SCHEDULED, First dose on Wed04/01/18 at 1800, Until Discontinued, Maximum dose of acetaminophen is 4000 mg from all sources in 24 hours., Routine Given 04/03/2018 6:46 AM EDT 650 mg Given 04/02/2018 11:58 PM EDT 650 mg enoxaparin (LOVENOX) injection 40 mg Given 04/02/2018 9:06 PM EDT 40 mg 40 mg, Subcutaneous, NIGHTLY, First dose on Tonya 03/31/18 at 2100, Until Discontinued, Routine Given 04/01/2018 9:45 PM EDT 40 mg Given 03/31/2018 9:08 PM EDT 40 mg ibuprofen (ADVIL;MOTRIN) tablet 600 mg 600 mg, Oral, EVERY 6 HOURS PRN, Startin g on 04/03/18 at 0250, Until 04/03/18 at 1429, Pain, Administer orally with milk or food to minimize GI irritation. Maximum dose of 3200 mg from all sources in 24 hours, Routine ondansetron (ZOFRAN) injection 4 mg Given 04/01/2018 9:33 AM EDT 4 mg 4 mg, Intravenous, EVERY 8 HOURS PRN, Starting on Wed03/30/18 at 1446, Until 04/03/18 at 1429, Nausea senna-docusate (PERICOLACE) 8.6-50 mg per Given 2017 [...] Given 04/01/2018 9:45 PM EDT 10 mLs documented in this encounter Active and Recently [...] Provider: Tamy Ta RN - Reason: Patient/family refused)2100 (Not Given - Provider: Meghan Rivero RN - Reason: See comment) 09 (Not Given - Provider: Savannah Hdz RN - Reason: Patient/family refused)210 (Given - Provider: Tabatha Rao RN) 0958 (Given - Provider: José Manuel mcihael RN) 2 tablet, Oral, 2 TIMES DAILY, [...] RN) 2 g, Intravenous, ONCE, 1 dose, 04/01 at 0100, Administer over 120 Minutes, Maximum [...] 02 (Lab Order Released - Provider: Kayla Mohr RN) NOT APPLICABLE, ONCE, 04/02/18 at 123 0, [...] 3 mL/hr, CONTINUOU S + PCEA, Starting Wed03/30/18 at 1600, Until 04/02/18 at 0855, [...] A ND (2) without straining. If multiple TN N bowel medications ordered, start with polyethylene [...] Routine documented in this encounter Care Teams Scrap Picker Relationship Specialty Start Date End Date Boogie Torres MD PCP - General Family Medicine 02/12/18 [address] [place] [address] documented as of this encounter
--- OUTSIDE RECORDS SUMMARY | 2022-07-17 01:54 | XMS_ITS | Encounter Summary ---
:1975 Author Organization [facility] [address] Care Team Providers Name Role Phone Boogie Torres MD Primary Care Provider Reason for Visit Treatment/Therapy Plan Authorization (Routine) - Closed Specialty Diagnoses / Procedures Referred By Contact Refer red To Contact Gynecology Oncology Diagnoses Malignant neoplasm of right ovary Josy Van, [facility] Commissions Manager [facility] [place] [phone] Fax: Referral ID Status Reason Start Date Expiration Date Visits Requ ested Visits Authorized [id number] Closed 03/04/2018 03/04/2019 1 1 Encounter Details Date Type Department Care Team Description 03/04/2018 Laboratory Appointment [place] [facility] [place] [phone] Social History Tobacco Use Types Packs/Day Years Used Date Never Smoker Smokeless Tobacco: Never Used Sex Assigned at Date Recorded Not on file documented as of this encounter Plan of Treatment Not on filedocumented as of this encounter Procedures Procedure Name Priority Date/Time Associated Comments Diagnosis ABORH RECHECK STATUS Routine 03/04/2018 11:22 Res ults for this AM EDT procedure are i n the results section. BIOREPOSITORY REQUEST Routine 03/04/2018 11:22 Adnexal mass Re sults for this AM EDT procedure are i n the results section. HEMOGRAM Routine 03/04/2018 11:22 Adnexal mass Results for this AM EDT procedure are i n the results section. DIFFERENTIAL, Routine 03/04/2018 11:22 Adnexal mass Results fo r this AUTOMATED AM EDT procedure are i n the results section. TYPE AND SCREEN, SDP Routine 03/04/2018 11:22 Adnexal mass (FUTURE SURGERY, [facility] [place] EDT SAME DAY PROGRAM ONLY) CREATININE Routine 03/04/2018 11:22 Adnexal mass Results for this AM EDT procedure are i n the results section. ABO/RH TYPING Routine 03/04/2018 11:22 Adnexal mass Results fo r this AM EDT procedure are i n the results section. CBC (WITH DIFF) Routine 03/04/2018 11:22 Adnexal mass AM EDT ANTIBODY SCREEN Routine 03/04/2018 11:22 Adnexal mass Results for this AM EDT procedure are i n the results section. CANCER ANTIGEN 125 Routine 03/04/2018 11:22 Adnexal mass Resul ts for this AM EDT procedure are i n the results section. BUN Routine 03/04/2018 11:22 Adnexal mass Results for this AM EDT procedure are i n the results section. ELECTROLYTES PANEL Routine 03/04/2018 11:22 Adnexal mass Resul ts for this AM EDT procedure are i n the results section. documented in this encounter Results ABORH Recheck Status (03/04/2018 11:22 AM EDT) [facility] Method Time Signature ABORH Recheck Order Placed [facility] LABORATORY ABORH Type Complete [facility] LABORATORY Specimen Anatomical Collection Method Collection Time Receive d Time (Source) Location / / Volume Laterality Blood specimen 03/04/2018 11:22 8 (specimen) AM EDT 11:24 AM EDT Resulting Agency Comment Spec In Lab Josy Van MD BLOOD BANK ORDERABLES Performing Organization Address City/State/ZIP [place] [address] Antibody screen (03/04/2018 11:22 AM EDT) [facility] Method Time Signature Ab Screen Negative [facility] LABORATORY Expires at 04/02/2018 NICK RAMLUIS [id number] on: [facility] LABORATORY Specimen Anatomical Collection Method Collection Time Receive d Time (Source) Location / / Volume Laterality Blood specimen 03/04/2018 11:22 8 (specimen) AM EDT 11:24 AM EDT Resulting Agency Comment Spec In Lab Josy Van MD BLOOD BANK ORDERABLES Performing Organization Address City/State/ZIP Code Phon e Number [address] ABO/Rh Typing (03/04/2018 11:22 AM EDT) P athologist Signature ABORh Type O Pos [facility] LABORATORY Specimen Anatomical Collection Method Collection Time Receive d Time (Source) Location / / Volume Laterality Blood specimen 03/04/2018 11:22 8 (specimen) AM EDT 11:24 AM EDT Resulting Agency Comment Spec In Lab Josy Van MD BLOOD BANK ORDERABLES Performing Organization Address City/[facility]/ZIP [facility] Phon e Number [address] Differential, Automated (03/04/2018 11:22 AM EDT) athologist Signature Neutrophils % 70.6 % [facility] LABORATORY Neutr Abs (ANC) 4.04 1.70 - [facility] 6.10 [facility] x10(3)/[facility] LABORATORY Lymphocytes % 21.7 % [facility] LABORATORY Lymphocytes Abs 1.2 0.9 - 3.2 [facility] x10(3)/[facility] LABORATORY Monocytes % 5.3 % [facility] LABORATORY Monocyte Abs 0.3 0.3 - 0.9 [facility] x10(3)/[facility] LABORATORY Eosinophils % 1.1 % [facility] LABORATORY Eosinophils Abs 0.1 0.0 - 0.4 [facility] x10(3)/[facility] LABORATORY Basophils % 0.9 % [facility] LABORATORY Basophils Abs 0.0 0.0 - 0.1 [facility] x10(3)/[facility] LABORATORY Immature Gran % 0.40 % [facility] LABORATORY Comment: Immature granulocytes(IG's)percentage an d absolute count will include metamyelocytes, myelocytes, and promyelo cytes. Blood smears from CBCs yielding IG's will be scanned manually for concor dance. If this scan disagrees with the automated IG or if promyelocytes are not ed, a manual differential will be performed. Nahed Gran Abs 0.02 0.00 - 0.04 x10(3)/[facility] LABORATORY Specimen Anatomical Collection Method Collection Time Receive d Time (Source) Location / / Volume Laterality Blood specimen 03/04/2018 11:22 8 (specimen) AM EDT 11:29 AM EDT Resulting Agency Comment Spec In Lab Josy Van MD HEMATOLOGY ORDERABLES Performing Organization Address City/State/ZIP [place] [address] (ABNORMAL) Hemogram (03/04/2018 11:22 AM EDT) Analysis Performed At Patho logist Time Signature WBC 5.7 4.0 - 9.5 [facility] x10(3)/[facility] LABORATORY RBC 4.83 4.00 - [facility] x10(6)/[facility] LABORATORY Hemoglobin 12.4 11.7 - [facility] 15.[facility] gm/dL [facility] LABORATORY Hematocrit 38.2 35.7 - [facility] 45.8 % [facility] LABORATORY MCV 79.1 (L) 82.6 - [facility] 94.4 [facility] LABORATORY MCH 25.7 (L) 27.1 - [facility] 32.0 pg [facility] LABORATORY MCHC 32.5 31.7 - [facility] 35.0 gm/dL [facility] LABORATORY Platelets 342 145 - 357 [facility] LABORATORY RDWSD 43.6 37.0 - [facility] 46.0 [facility] LABORATORY RDWCV 15.2 (H) 11.5 - [facility] 14.1 % [facility] LABORATORY MPV 9.9 7.6 - 12.9 [facility] LABORATORY nRBC % Auto 0.0 % [facility] LABORATORY nRBC Abs Auto 0.000 0.000 - [facility] 0.000 [facility] x10(3)/[facility] LABORATORY Specimen Anatomical Collection Method Collection Time Receive d Time (Source) Location / / Volume Laterality Blood specimen 03/04/2018 11:22 8 (specimen) AM EDT 11:29 AM EDT Resulting Agency Comment Spec In Lab Josy Van MD HEMATOLOGY ORDERABLES Performing Organization Address City/[facility]/ZIP Code Phon e Number [address] Creatinine (03/04/2018 11:22 AM EDT) P athologist Signature Creatinine 0.91 0.70 - N[facility] SMITH 1.20 mg/dL [facility] LABORATORY Estimated GFR >60 >=60 [facility] LABORATORY Comment: The reported eGFR should be multiplied b y 1.2 for patients. The MDRD is not an appropriate measure o f renal function for patients with body mass extremes or in patients with acute kidney failure. http://Cerebrex/DHnkdep http://Cerebrex/DHMCnkf Specimen Anatomical Collection Method Collection Time Receive d Time (Source) Location / / Volume Laterality Blood specimen 03/04/2018 11:22 8 (specimen) AM EDT 11:29 AM EDT Resulting Agency Comment Spec In Lab Josy Van MD CHEMISTRY ORDERABLES Performing Organization Address City/[facility] Code Phon e Number [address] BUN (03/04/2018 11:22 AM EDT) P athologist Signature BUN 17 8 - 18 [facility] mg/dL [facility] LABORATORY Specimen Anatomical Collection Method Collection Time Receive d Time (Source) Location / / Volume Laterality Blood specimen 03/04/2018 11:22 8 (specimen) AM EDT 11:29 AM EDT Resulting Agency Comment Spec In Lab Josy Van MD CHEMISTRY ORDERABLES Performing Organization Address City/[facility]/[place] [address] (ABNORMAL) Electrolytes panel (03/04/2018 11:22 AM EDT) P athologist Signature Sodium 140 135 - 145 [facility] mmol/L [facility] LABORATORY Potassium 4.2 3.5 - 5.0 [facility] mmol/L [facility] LABORATORY Comment: Please note: ??Patients with WBC >100,00 0 may have falsely elevated Potassium levels. ??For accurate Potassium quantif ication in these patients send serum separator tube (gold top) for subsequent determinations. ??Contact the Clinical Chemistry Laboratory if there are any qu estions. Chloride 102 98 - 107 mmol/L [facility] LABORATORY CO2 21 (L) 22 - 31 mmol/L [facility] LABORATORY Anion Gap 17 (H) 5 - 15 mmol/L [facility] LABORATORY Specimen Anatomical Collection Method Collection Time Receive d Time (Source) Location / / Volume Laterality Blood specimen 03/04/2018 11:22 8 (specimen) AM EDT 11:29 AM EDT Resulting Agency Comment Spec In Lab Josy Van MD CHEMISTRY ORDERABLES Performing Organization Address City/State/ZIP Code Phon e Number [address] Biorepository Request (03/04/2018 11:22 AM EDT) Patholo gist Method Time Signature Biorepository Sample in [facility] LABORATORY Specimen Anatomical Collection Method Collection Time Receive d Time (Source) Location / / Volume Laterality Blood specimen 03/04/2018 11:22 8 1:53 (specimen) AM EDT PM EDT Resulting Agency Comment Spec In Lab Josy Van MD CHEMISTRY ORDERABLES Performing Organization Address City/State/ZIP Code Phon e Number [address] (ABNORMAL) Cancer Antigen 125 (03/04/2018 11:22 AM EDT) P athologist Signature CA 125 45.0 (H) <=38.1 [facility] unit/mL [facility] LABORATORY Comment: CA 125 Reference Interval ??Postmenopausal: [...] Van MD CHEMISTRY ORDERABLES Performing Organization Address City/State/[facility] [place] [address] documented in this encounter Visit Diagnoses Diagnosis Adnexal mass Other specified symptom associated with female genital organs documented in this encounter Care Teams Blending Technician Relationship Specialty Start Date End Date Boogie Torres MD PCP - General Family Medicine 02/12/18 [place] [address] documented as of this encounter
--- OUTSIDE RECORDS SUMMARY | 2022-07-17 01:54 | XMS_ITS | Encounter Summary ---
:1975 [place] [address] Care Team Providers Name Role Phone Boogie [...] Expiration Date Visits Requ ested Visits Authorized [id number] 1 1 Encounter Details Date Type Department Care Team Description 03/30/2018 Anesthesia Event Main Operating Room Zachary Dowell MD [facility] [place] [address] [facility] Mark Neumann MD [facility] [place] [address] [place] [address] Anesthesia Record Procedure Summary Procedure Name Responsible Anesthesia Start Anesthesia Stop Time Anesthesiologist Time @EXPLORATORY Zachary Guardado MD 03/30/18 0955 03/30/18 13 10 LAPAROTOMY, WITH/WITHOUT BIOPSY(S) ([facility]VU 12.54) (Bilateral Abdomen) Events Date Time Event Comment 03/30/2018 0851 0955 AN Verify 0955 Start 0955 An Start Data 1002 An Induction 1005 An Intubation 1013 Anesthesia Ready 1240 Extubation/LMA Out 1250 an stop data 1310 Recovery or ICU Handoff Patient care was transferred to the destination unit staff after review of the patient's medica l history, current anesthetic/surgi taylor status and plan, according to the Provider Handoff Checklist. 1310 Stop Name Total fentaNYL 150 mcg IV Lidocaine 100 mg Propofol 200 mg Rocuronium 60 mg PHENYLephrine 880 mcg Ondansetron 4 mg Dexamethasone 8 mg Neostigmine 5 mg Glycopyrrolate 0.4 mg ceFAZolin (ANCEF) 2g in dextrose 5% 100 mL 2 g fentaNYL 2 mcg/mL, BUpivacaine (MARCAINE) 0.0625% (0.6 25 mg/mL)(1/16%) in 6.5 mL sodium chloride 0.9% 250 mL epidural Lactated Ringers 1,000 mL lactated Ringers infusion 1,000 mL 900 mL Agents Name O2 Air N2O Sevoflurane (et) Blood No blood administrations on file. Lines, Drains, and Airways Type Details Placement Removal PIV 03/30/18; 0839; metacarpal 03/30/18 0839 by 03/05 06/21 1117 by vein (top of hand), left; Coco Grayson Pearl, Daniel W, RN [id number] catheter RN system; 20 gauge, 1 in length; Deepa Rider RN; distraction, intradermal injection, age-appropriate response, tolerated well, appears comfortable; 04/01/18; 1117 Epidural 03/30/18; 0919; thoracic; 03/30/18 0919 by 04/02 0800 by Tip at T8,ALEKSANDR at 6cm, 14 Anoop De Luna, RADHA F Kayla lou RN cm at skin.; Sites/Youngren; analgesia, continuous infusion; 04/02/18; 0800 ETT Mask Ventilation: Easy 03/30/18 1005 by 03/30/18 1309 by (1); ETT Type: Cuffed; ETT Mark Neumann Alvarado, Patrick Size: 7 mm; Mac Blade: 3; MD Salomón MD Notes: Asleep, Pre-O2, Stylette; Attempts: 1; Laryngoscopy Grade: 1; ETT Placement Verified By: Auscultation, Capnometry, Visual; Secured at Teeth: 22 cm; Inserted by: Mark Neumann MD PIV 03/30/18; 1021; metacarpal 03/30/18 1021 by 03/05 05/21 2251 by vein (top of hand), right; Mark Neumann, Michelet Cottrell, [id number] catheter RN system; 18 gauge; gen; 2; metacarpal vein (top of hand), right; 03/31/18; 2251 Urethral Catheter 03/30/18; 1028; Surgery 03/30/18 1028 by 03/31 1345 by longer than 2 hours, Lynn Vargas, Marcy Castellanos RN Genitourinary surgery, Physician order; Physician order; indwelling double lumen catheter; latex; inserted at this facility; 1; 5; 10; none; leg bag to dependent drainage; urethral catheter removed; 03/31/18; 1345 Incision 03/30/18; 1034; abdomen; 03/30/18 1034 by 1715 by midline; 06/01/22 (LDA Lynn Vargas, RADHA peñaloza, Dierdre L cleanup utility [id number]); 1715 (LDA cleanup utility RA#[id number]) documented in this encounter Social History Tobacco Use Types Packs/Day Years Used Date Never Smoker Smokeless Tobacco: Never Used Alcohol Use Standard Drinks/Week Comments No 0 (1 standard drink = 0.6 oz pure alcoho l) Sex Assigned at Date Recorded Not on file documented as of this encounter OR Notes Anesthesia Postprocedure Evaluation - Mark Neumann MD - 03/30/2018 3:36 PM EDT [facility] [place] Department of Anesthesiology Post-procedure Note Patient: Sara Morton Procedure Summary Date Anesthesia Start Anesthesia Stop Room / Location 03/30/18 0955 1310 [facility] OR [facility] MAIN OR Procedure Diagnosis Surgeon Responsible Provider @EXPLORATORY LAPAROTOMY, WITH/WITHOUT BIOPSY(S) ([facility]VU 12.54) (Bilateral Abdomen); @SALPINGO-OOPHORECTOMY, UNILATERAL OR AXEL ([facility] 12.16) (Left Abdomen) ([facility]) Josy Van MD Clark, Jeffrey A, MD All Anesthesia Providers: Anesthesiologist: Zachary Guardado MD Mechanical Planner: Mark Neumann MD Most Recent Vitals: 03/30/18 1533 BP: 112/60 Pulse: 77 Resp: 16 Temp: 36.9 ??C (98.4 ??F) SpO2: 98% Pain Patient Location: Floor Level of Consciousness: Awake and Alert Pain Management: Satisfactory Analgesia PONV: None Cardiovascular Status: At Baseline and Hemodynamically Stable Respiratory Status: At Baseline and Room Air Postoperative Fluid Status: Possible Anesthetic Complications: NONE apparent at time of evaluation Final Primary Anesthesia Type: General (The anesthetic type performed was the same as planned.) Comments: Anesthesia Procedure Notes - Checo Ludwig MD - 03/30/2018 9:28 AM EDT Associated Order(s): ANE NEURAXIAL UPDATED Procedure: Neuraxial Block Post-op Pain Control Type: Epidural The patient was greeted. The sedation plan, its benefits, risks and alternatives were discussed withthe patient. The patient has consented to the procedure. The medical history and chart were reviewed. The timeout was performed. Start time: 03/30/2018 9:09 AM End time: 03/30/2018 9:23 AM Patient Location: Operating Room Patient Prep Position: Prone Prep: Hat, Hand Hygiene, Mask, Sterile Gloves, Chlorhexidine and Patient Draped Skin Anesthetic Lidocaine 1% Procedure Technique Level of needle insertion: T12-L1 Needle approach: midline Needle Type: Tuohy Needle insertion depth when ALEKSANDR achieved: 6 cm Technique for Loss of Resistance: ALEKSANDR saline Catheter at skin depth: 14 cm Dressing/Secured with: Tegaderm, Chlorhexidine Tegaderm and Tape Number of attempts: 1 Events/Notes Imaging: epidurogram obtained and fluoroscopy guided Level of Epidural Tip via Fluoroscopy: T8-9 Iohexol 240 mgI/mL mL Events: None Additional Notes: Well tolerated. No heme, CSF, or paresthesia. Catheter thread with ease to T8-9. Clear midline epidural spread Resident/ELECTRIC CLOCK MECHANIC: Second Resident/ELECTRIC CLOCK MECHANIC: Fellow: CHECO LUDWIG Attending Physician: GEREMIAS CUEVAS ~~~~~~~~~~~~~~~~~~~~~~~~~~~~~~~~~~~~~~~~~~~~~~~~~~~~~~~~~~~~ Anesthesia Preprocedure Evaluation - Faith, Geremias Clay MD - 03/29/2018 4:55 PM EDT Pre-Anesthesia Evaluation for: Sara Morton a 42 y.o. female. Procedure(s): @EXPLORATORY LAPAROTOMY, WITH/WITHOUT BIOPSY(S) [facility]) @SALPINGO-OOPHORECTOMY, UNILATERAL OR AXEL ([facility]) Patient Active Problem List Diagnosis ??? Ovarian mass No past medical history on file. No past surgical history on file. Social History Substance Use Topics ??? Smoking status: Never Smoker ??? Smokeless tobacco: Never Used ??? Alcohol use Not on file History Drug Use Not on file Allergies Allergen Reactions ??? Bee Sting [Hymenoptera Allergenic Extract] Full-body edema, reaction as a child Medications: MAR and/or home medications have been reviewed. Physical Exam: There were no vitals filed for this visit. There is no height or weight on file to calculate BMI. Airway Assessment: Mallampati: II TM distance: >3 FB Neck ROM: full Cardiovascular Assessment: Rhythm: regular Rate: abnormal Pulmonary Assessment: breath sounds clear to auscultation Dental Assessment: Misc Assessment: IV access: Peripheral line Anesthesia Plan: ASA 2 general, with a(n) intravenous induction 42 y.o. female with left adnexal septated mass presenting for exploratory laparotomy and possible b/l BSO. PMH significant for obesity. Incidental finding of liver cysts on CT abdomen. No other medical history, no prior surgeries. Anesthetic hx: No reported prior complications with anesthesia Airway hx: no records Exercise tolerance: ??? EKG: n/a ECHO: n/a Lab Results Component Value Date HGB 12.4 03/04/2018 PLATELET 342 03/04/2018 NA 140 03/04/2018 K 4.2 03/04/2018 CREATININE 0.91 03/04/2018 03/04/18 1122 ABORH O Pos Allergies: -- Bee Sting (Hymenoptera Allergenic Extract) -- Full-body edema, reaction as a child NPO Status: Appropriate Anesthetic Plan: GA with ETT, standard ASA monitors, PIV. Epidural for post-op pain. Anesthesia Staff ([facility]) I have seen and examined the patient. I have reviewed the medical record and pertinent laboratory information. I have noted the major medical issues to include obesity and likely COTTON BALL BAGGER cancer. I have reviewed risks from minor to major as outlined in the anesthesia consent form. I have highlighted risks related to airway management, regional anesthesia, and perioperative opioid therapy. She is aware that our care model is based on a team and multiple other members including residents, fellows, nurses, and staff will participate in her care. The patient acknowledged these risks and would like to proceed with the anesthesia plan. Informed Consent: Anesthetic plan and risks discussed with patient. Plan discussed with ELECTRIC CLOCK MECHANIC. PAT Staff Note documented in this encounter Plan of Treatment Not on filedocumented as of this encounter Procedures Procedure Name Priority Date/Time Associated Diagnosis Comme nts ANE NEURAXIAL Routine 03/30/2018 2:16 PM Results for this UPDATED EDT procedure are i n the results section. documented in this encounter Results ANE NEURAXIAL UPDATED (03/30/2018 2:16 PM EDT) Narrative [facility], Geremias Clay MD - 03/30/2018 2:16 PM EDT Checo Ludwig MD ? 03/30/2018 ??9:31 AM Procedure: ?? Neuraxial Block Post-op Pain Control Type: Epidural The patient was greeted. The sedation pl an, its benefits, risks and alternatives were discussed with the pat ient. ??The patient has consented to the procedure. ??The medical history and chart were reviewed. ??The timeout was performed. Start time: 03/30/2018 9:09 AM End time: 03/30/2018 9:23 AM Patient Location: Operating Room Patient Prep Position: Prone Prep: Hat, Hand Hygiene, Mask, Sterile G loves, Chlorhexidine and Patient Draped Skin Anesthetic Lidocaine 1% ?? Procedure Technique Level of needle insertion: T12-L1 Needle approach: midline Needle Type: Tuohy Needle insertion depth when ALEKSANDR achieved : 6 cm Technique for Loss of Resistance: ALEKSANDR sa line Catheter at skin depth: 14 cm Dressing/Secured with: Tegaderm, Chlorhe xidine Tegaderm and Tape Number of attempts: 1 Events/Notes Imaging: ??epidurogram obtained and fluo roscopy guided Level of Epidural Tip via Fluoroscopy: T 8-9 Iohexol 240 mgI/mL mL Events: ??None Additional Notes: ??Well tolerated. ??No heme, CSF, or paresthesia. ?? Catheter thread with ease to T8-9. ??Arnulfo ar midline epidural spread Resident/ELECTRIC CLOCK MECHANIC: ? Second Resident/ELECTRIC CLOCK MECHANIC: Fellow: ?CHECO LUDWIG Attending Physician: ? FAITH, ANDREW Clay ~~~~~~~~~~~~~~~~~~~~~~~~~~~~~~~~~~~~~~~~ ~~~~~~~~~~~~~~~~~~~~ Geremias Cuevas MD BOAT CAMP OPERATOR [facility] documented in this encounter Visit Diagnoses Not on filedocumented in this encounter Administered Medications Inactive Administered Medications - up to 3 most recent administrations Medication Order MAR Action Action Date Dose Rate Site ceFAZolin (ANCEF) 2g in dextrose 5% Given 03/30/2018 10:00 AM ED T 2 g 100 mL 2 g, Intravenous, ONCE, 1 dose, On Wed03/30/18 at 0915, Administer over 30 Minutes, Indication for (Active or Suspected): Prophylaxis dexamethasone (DECADRON) injection Given 03/30/2018 11:34 AM EDT 8 mg PRN, Starting on Wed03/30/18 at 1134, Until Wed03/30/18 at 1310, Anesthesia Intra-op, Routine fentaNYL 2 mcg/mL, BUpivacaine Continued Bag [...] AM EDT 6 mL/hr 6 mL/hr fentaNYL 50 mcg/mL multi-dose injection Given 03/30/2018 1:05 PM EDT 25 mcg PRN, Starting on Wed03/30/18 at 1010, Until Wed03/30/18 at 1310, Pain, Anesthesia Intra-op, Routine Given 03/30/2018 12:31 PM EDT 25 mcg Given 03/30/2018 12:10 PM EDT 50 mcg glycopyrrolate (ROBINUL) multi-dose Given 03/30/2018 12:45 PM ED T 0.4 mg injection PRN, Starting on Wed03/30/18 at 1245, Until Wed03/30/18 at 1403, Anesthesia Intra-op, Routine lactated Ringers infusion New Bag 03/30/2018 9:55 AM EDT CONTINUOUS PRN, Starting on Wed03/30/18 at 0955, Until Wed03/30/18 at 1310, Anesthesia Intra-op lidocaine (PF) (XYLOCAINE) 100 mg/5 mL (2 %) Given 10:02 AM EDT 100 mg injection PRN, Starting on Wed03/30/18 at 1002, Until Wed03/30/18 at 1310, Anesthesia Intra-op, Routine neostigmine (BLOXIVERZ) injection Given 03/30/2018 12:45 PM EDT 5 mg PRN, Starting on Wed03/30/18 at 1245, Until Wed03/30/18 at 1403, Anesthesia Intra-op, Routine ondansetron (ZOFRAN) injection Given 03/30/2018 11:35 AM EDT 4 mg PRN, Starting on Wed03/30/18 at 1130, Until Wed03/30/18 at 1310, Nausea, Anesthesia Intra-op, Routine PHENYLephrine in NS (PF) (MARNI-SYNEPHRINE) Given 03/30/2018 11:47 AM EDT 80 mcg 0.8 mg/10 mL (80 mcg/mL) multi-dose injection Syrg PRN, Starting on Wed03/30/18 at 1040, Until Wed03/30/18 at 1310, Anesthesia Intra-op, Routine Given 03/30/2018 11:11 AM EDT 80 mcg Given 03/30/2018 11:07 AM EDT 80 mcg propofol (DIPRIVAN) 10 mg/mL bolus injection Given 10:02 AM EDT 200 mg (Anesthesia) PRN, Starting on Wed03/30/18 at 1002, Until Wed03/30/18 at 1310, Anesthesia Intra-op rocuronium (ZEMURON) multi-dose injectio n Given 03/30/2018 10:35 AM EDT 10 mg PRN, Starting on Wed03/30/18 at 1002, Until Wed03/30/18 at 1310, Anesthesia Intra-op, Routine Given 03/30/2018 10:02 AM EDT 50 mg documented in this encounter Care Teams Worker'S Compensation Claims Examiner Relationship Specialty Start Date End Date Boogie Torres MD PCP - General Family Medicine 02/12/18 [address] [place] [address] documented as of this encounter
[2022-07-20 10:07] LABS: CA 125 3 U/mL (<30)
== END 2022-07-17 01:48 | disposition home or self-care (01) ==
LOC: LBO 01:47
PROVIDERS: PCP Family Medicine; Visit Provider Obstetrics & Gynecology
DX: Z85.43 Personal history of malignant neoplasm of ovary (principal)
CPT/HCPCS: 36415; 86304